=== PATIENT | female | born 1990 | race Caucasian/White ===

== ENCOUNTER 2023-04-15 14:47 | Outpatient (CLI) | payer OTHER, SELFPAY ==
[2023-04-15 17:36] LABS: Absolute Lymphocyte Count 3.12 X10^3/uL (0.83-4.51); Absolute Neutrophil Count 4.4 X10^3/uL (2.0-7.7); Basophil# 0.05 X10^3/uL; Basophil% 0.6 % (0-1); Eosinophil# 0.12 X10^3/uL; Eosinophils% 1.5 % (0-5); Hematocrit 42.3 % (37-47); Hemoglobin 13.7 g/dL (12.0-15.0); Lymphocyte # 3.12 X10^3/ul (0.83-4.51); Lymphocyte % 38.1 % (19-41); Mean Corp Hgb Conc 32.4 g/dL (32-36); Mean Corpuscular Hgb 30.8 pg (27.0-32.0); Mean Corpuscular Volume 95.1 fL (81-99); Mean Platelet Vol. 12.7 fl (6.2-12.0); Monocyte# 0.47 X10^3/uL; Monocyte% 5.7 % (0-10); NRBC Flagged by Analyzer 0 % (0-5); Neutrophil # 4.41 X10^3/uL (2.7-7.7); Neutrophil % 53.9 % (47-70); Platelet Count 205 K/mm3 (150-450); RBC Distribution Width CV 12.8 % (11.6-14.6); RBC Distribution Width SD 44.4 fl (35.1-43.9); Red Blood Count 4.45 M/mm3 (4.2-5.4); White Blood Count 8.2 K/mm3 (4.4-11.0)
[2023-04-15 17:55] LABS: Hemoglobin A1c 5.1 % (3.8-5.6)
[2023-04-15 18:01] LABS: AST(SGOT) 17 U/L (15-37); Alanine Aminotransfer ALT/SGPT 22 U/L (13-56); Albumin, Serum 3.8 g/dL (3.2-5.0); Alkaline Phosphatase 84 U/L (45-117); Anion Gap 5 (5-15); BUN 10 mg/dL (7-18); BUN/Creat Ratio 15.4 RATIO (10-20); Calcium,Total 8.9 mg/dL (8.5-10.1); Chloride 103 mmol/L (98-107); Cholesterol 168 mg/dL (200); Creatinine, Serum 0.65 mg/dL (0.55-1.02); EST Glomerular Filtration Rate 111 mL/min (>60); Est Glom Filt Rate - Afr Amer 134 mL/min (>60); Ferritin 16 ng/mL (8-252); Glucose 91 mg/dL (74-106); High Density Lipoprotein 66 mg/dL; Potassium 3.6 mmol/L (3.5-5.1); Protein, Total 7.8 g/dL (6.4-8.2); Sodium Level 136 mmol/L (136-145); T4 Free Direct 1.18 ng/dL (0.76-1.46); Thyroid Stim Hormone (TSH) 4.37 uIU/mL (0.358-3.74); Triglycerides 112 mg/dL; Very Low Density Lipoprotein 22 mg/dL (5-40)
[2023-04-15 18:52] LABS: Vitamin B12 484 pg/mL (211-911); Vitamin D,25 Hydroxy 32.7 ng/mL
== END 2023-04-15 23:59 | disposition home or self-care (01) ==
PROVIDERS: PCP Family Medicine; Visit Provider Family Medicine
DX: R53.83 Other fatigue (principal); E03.9 Hypothyroidism, unspecified; Z13.220 Encounter for screening for lipoid disorders
CPT/HCPCS: 36415; 80053; 80061; 82306; 82607; 82728; 83036; 83735; 84439; 84443; 85025

== ENCOUNTER → 2023-06-17 | Outpatient (CLI) | payer OTHER, SELFPAY ==
--- OUTSIDE RECORDS SUMMARY | 2023-06-17 09:33 | XMS RPT_ITS | CCD ---
Author Name Unknown Address [address] [place] [address] Organization [facility] Care Team Providers Care Computer Publisher Name Role Phone Wilfred Nolasco Unavailable WILFRED NOLASCO Unavailable UnavailMARIE Palmer Unavailable Unavailable Unavailable Primary Care Provider UnavailWilfred Sherman Primary Care Provider PIERRE, ELICEO JOSH Admitting Unavailab le PIERRE, ELICEO JOSH Referring Unavailab WILFRED Beth Primary Care Unavailabl e PIERRE, ELICEO JOSH Attending Unavailab Ivania Sheppard MD Primary Care Provider [phone] NimishaFred duggan DO Unavailable Ivania Atwood MD Primary Care Provider Fred Bansal DO Unavailable IVANIA ATWOOD Primary Care Unavailable SICKJIMMY, IVANIA Attending Unavailable SICKJIMMY, IVANIA Primary Care Unavailable ANDREIA GAYTAN Attending Unava ilable SICKIVANIA MARQUEZ Primary Care Unavailable SICKER, IVANIA Attending Unavailable SICKJIMMY, IVANIA Primary Care Unavailable SICKJIMMY, IVANIA Attending Unavailable NIMISHAFRED Duggan Attending Unavailab le NIMISHAFRED Duggan Admitting Unavailab IVANIA Sheppard Primary Care Unavailable IVANIA ATWOOD Primary Care Unavailable Sherri Reynoso MD Primary Care Provider SHERRI REYNOSO Attending Unavailable SHERRI REYNOSO Primary Care Unavailable SHERRI REYNOSO Primary Care Unavailable Allergies Allergy Classification Reported Allergen(s) Allergy Type Date of Onset Reaction(s) Facility (20 sources) nickel; Translations: [NICKEL] Drug Allergy 12-09-2018 [facility] Medications Current Medications Medication Drug Class(es) Dates Sig (Normalized) Sig (Original) 0.5 ml bordetella pertussis filamentous hemagglutinin vaccine, inactivated 0.01 mg/ml / bordetella pertussis fimbriae 2/3 vaccine, inactivated 0.01 mg/ml / bordetella pertussis pertactin vaccine, inactivated 0.006 mg/ml / bordetella pertussis toxoid vaccine, inactivated 0.005 mg/ml / diphtheria toxoid vaccine, inactivated 4 unt/ml / tetanus toxoid vaccine, inactivated 10 unt/ml injection (1 source) Inactivated Corynebacterium Diphtheriae Vaccine, Inactivated Clostridium Tetani Vaccine Start: 05-10-2017 End: 05-10-2017 diptheria, tetanus toxoid, acellular pertusssis (ADACEL) 2 Lf-(2.5-5-3-5 mcg)-5Lf/0.5 mL injection Sign this order in conjunction with the immunization order to satisfy [place] Board of Pharmacy Positive ID requirements for immunization orders. 1 mL 0 05/10/2017 05/10/2017 Active amoxicillin 875 mg / clavulanate 125 mg oral tablet (1 source) Penicillin-class Antibacterial Start: 05-10-2017 End: 05-17-2017 take 1 tablet by mouth twice daily amoxicillin-clavula sylvia (AUGMENTIN) 875-125 mg per tablet Take 1 (one) tablet by mouth 2 (two) times a day for 7 days. 14 tablet 0 05/10/2017 05/17/2017 Active b complex vitamins capsule (1 source) take 1 capsule by mouth once daily b complex vitamins capsule Take 1 (one) capsule by mouth daily . 0 Active cholecalciferol 0.125 mg oral tablet (1 source) Vitamin D cholecalciferol (Vitamin D-3) 5,000 Units tablet Take by mouth. 0 Active cholecalciferol, vitamin D3, (VITAMIN D3 ORAL) (1 source) cholecalciferol, vitamin D3, (VITAMIN D3 ORAL) Take by mouth . 0 Active levothyroxine sodium 0.112 mg oral tablet (7 sources) l-Thyroxine Start: 11-30-2022 End: 05-29-2023 take 1 tablet by mouth once daily levothyroxine (Synthroid, Levoxyl) 112 mcg tablet Take 1 tablet (112 mcg) by mouth once daily. 0 11/30/2022 05/29/2023 Active Completed/Discontinued Medications Medication Drug Class(es) Dates Sig (Normalized) Sig (Original) acetaminophen 325 mg oral tablet (4 sources) Start: 04-14-2022 End: 04-15-2022 take 1 tablet by mouth every four hours as needed for pain and headache 650 mg, Oral, Every 4 hours PRN, mild pain, fever 100.4 F or greater, headaches, Starting on Wed04/14/22 at 0744, For mild pain, use PRN ibuprofen first, if currently active and within dose-timing guidelines. If patient is receiving SCHEDULED ketorolac or ibuprofen, acetaminophen may be given PRN for breakthrough mild pain. Acetaminophen may also be used as ordered FOR HEADACHE OR FEVER concurrently with ibuprofen or ketorolac. Problems Active Problems Problem Classification Problem Date Documented Date Episodic/Chronic Anxiety disorders (6 sources) Generalized anxiety disorder; Translations: [Generalized anxiety disorder] Onset: 10-13-2022 10-13-2022 Chronic Conditions associated with dizziness or vertigo (2 sources) Dizziness and giddiness; Translations: [Dizziness and giddiness] Onset: 11-25-2022 Episodic External Injury - Natural / Environment (2 sources) Bitten by dog, initial encounter; Translations: [Bitten by dog, initial encounter] Onset: 05-10-2017 Hypertension complicating ; childbirth and the puerperium (4 sources) Hypertension complicating , childbirth and the puerperium; Translations: [Gestational hypertension] Onset: 12-08-2018 01-31-2019 Chronic Joint disorders and dislocations; trauma-related (11 sources) Defect of articular cartilage; 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] Onset: 01-06-2017 01-06-2017 Chronic Other complications of ; puerperium affecting management of mother (1 source) delivery - delivered; Translations: [Delivery by section using transverse incision of lower segment of uterus] Episodic Other nervous system disorders (7 sources) Chiari malformation type I; Translations: [Compression of brain] Onset: 07-12-2019 07-12-2019 Chronic Other nervous system disorders (1 source) Postoperative pain ; Translations: [Other acute postprocedural pain] Episodic Spondylosis; intervertebral disc disorders; other back problems (4 sources) Cervical radiculopathy; Translations: [Thoracic radiculopathy] Chronic Thyroid disorders (9 sources) Hypothyroidism; Translations: [Hypothyroidism, unspecified] Onset: 02-19-2022 Chronic Unclassified (16 sources) Patient encounter status; Translations: [Encounter for routine gynecological examination] Onset: 07-24-2015 07-24-2015 Past or Other Problems Problem Classification Problem Date Documented Date Episodic/Chronic Hypertension complicating ; childbirth and the puerperium (20 sources) Hypertension AND/OR vomiting complicating childbirth AND/OR puerperium; Translations: [-induced hypertension] Onset: 12-08-2018 12-08-2018 Episodic Infective arthritis and osteomyelitis (except that caused by tuberculosis or sexually transmitted disease) (20 sources) Sesamoiditis; Translations: [Other specified joint disorders, unspecified joint] Onset: 01-06-2017 01-06-2017 Episodic Open wounds of head; neck; and trunk (2 sources) Open bite of nose, initial encounter; Translations: [Open bite of nose, initial encounter] Onset: 05-10-2017 Episodic Other acquired deformities (5 sources) Defect of articular cartilage; Translations: [Other specified acquired deformities of musculoskeletal system] Onset: 01-06-2017 01-06-2017 Episodic Other connective tissue disease (6 sources) Disorder of musculoskeletal system; 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] Onset: 01-06-2017 01-06-2017 Episodic Other injuries and conditions due to external causes (20 sources) Injury of foot; Translations: [Unspecified injury of unspecified foot, initial encounter] Onset: 01-06-2017 01-06-2017 Episodic Other nervous system disorders (2 sources) Other acute postprocedural pain; Translations: [Other acute postprocedural pain] Onset: 04-13-2022 Episodic Spondylosis; intervertebral disc disorders; other back problems (7 sources) Spinal stenosis in cervical region; Translations: [Spinal stenosis, cervical region] Onset: 07-12-2019 07-12-2019 Episodic Unclassified (1 source) Dog bite of nose, initial encounter Results Test Name Value Interpretation Reference Range Facil ity Vital Signs Date Time Vital Sign Value Performing Clinician Facility 02-11-2023 14:010400 Body height 168.9 cm Sherri Reynoso MD Work Phone: [facility] 02-11-2023 14:01-0400 Body mass index (BMI) [Ratio] 28.71 kg/m2 Sherri Reynoso MD Work Phone: [facility] 02-11-2023 14:01-0400 Body temperature 98.6 [degF] Sherri Reynoso MD Work Phone: [facility] 02-11-2023 14:01-0400 Body weight 81.92 kg Sherri Reynoso MD Work Phone: [facility] 02-11-2023 14:01-0400 Diastolic blood pressure 69 mm[Hg] Sherri Reynoso MD Work Phone: [facility] 02-11-2023 14:01-0400 Heart rate 86 /min Sherri Reynoso MD Work Phone: [facility] 02-11-2023 14:01-0400 SaO2% (BldA) [Mass fraction] 94 % Sherri Renyoso MD Work Phone: [facility] 02-11-2023 14:01-0400 Systolic blood pressure 117 mm[Hg] Sherri Reynoso MD Work Phone: [facility] 10-13-2022 11:11-0400 Body height 170.2 cm Andreia Gaytan [employer] WORK[employer]ICE Work Phone: [facility] 10-13-2022 11:11-0400 Body mass index (BMI) [Ratio] 27.53 kg/m2 Andreia Gaytan [employer] WORK[employer]ICE Work Phone: [facility] 10-13-2022 11:11-0400 Body temperature 97.81 [degF] Andreia Gaytan [employer]OUN[employer] WORKER APPRENTICE Work Phone: [facility] 10-13-2022 11:11-0400 Body weight 79.74 kg Andreia Gaytan [employer] WORK[employer]ICE Work Phone: [facility] 10-13-2022 11:11-0400 Diastolic blood pressure 69 mm[Hg] Andreia Gaytan [employer]OUN[employer] WORKER APPRENTICE Work Phone: [facility] 10-13-2022 11:11-0400 Heart rate 79 /min Andreia Gaytan [employer] WORKER [employer]ENTICE Work Phone: [facility] 10-13-2022 11:11-0400 Respiratory rate 16 /min Andreia Gaytan [employer] WORKER [employer]PRENTICE Work Phone: [facility] 10-13-2022 11:11-0400 SaO2% (BldA) [Mass fraction] 95 % Andreia Gaytan [employer] WORKER APPRENTICE Work Phone: [facility] 10-13-2022 11:11-0400 Systolic blood pressure 120 mm[Hg] Andreia Gaytan [employer]OUN[employer] WORKER APPRENTICE Work Phone: [facility] 04-15-2022 15:35-0400 Body temperature 98.1 [degF] Fred Nimisha DO Work Phone: [facility] 04-15-2022 15:35-0400 Diastolic blood pressure 61 mm[Hg] Fred Nimisha DO Work Phone: [facility] 04-15-2022 15:35-0400 Heart rate 78 /min Fred Nimisha DO Work Phone: [facility] 04-15-2022 15:35-0400 Respiratory rate 16 /min Fred Nimisha DO Work Phone: [facility] 04-15-2022 15:35-0400 SaO2% (BldA) [Mass fraction] 96 % Fred Nimisha DO Work Phone: [facility] 04-15-2022 15:35-0400 Systolic blood pressure 102 mm[Hg] Fred Nimisha DO Work Phone: [facility] 04-13-2022 12:00-0400 Body height 170.2 cm Fred Nimisha DO Work Phone: [facility] 04-13-2022 12:00-0400 Body mass index (BMI) [Ratio] 31.32 kg/m2 Fred Nimisha DO Work Phone: [facility] 04-13-2022 12:00-0400 Body weight 90.72 kg Fred Nimisha DO Work Phone: [facility] 02-19-2022 13:43-0400 Body height 170.2 cm Iavnia Atwood MD Work Phone: [facility] 02-19-2022 13:43-0400 Body mass index (BMI) [Ratio] 31.01 kg/m2 Ivania Atwood MD Work Phone: [facility] 02-19-2022 13:43-0400 Body temperature 98.6 [degF] Ivania Atwood MD Work Phone: [facility] 02-19-2022 13:43-0400 Body weight 89.81 kg Ivania Atwood MD Work Phone: [facility] 02-19-2022 13:43-0400 Diastolic blood pressure 71 mm[Hg] Ivania Atwood MD Work Phone: [facility] 02-19-2022 13:43-0400 Heart rate 87 /min Ivania Atwood MD Work Phone: [facility] 02-19-2022 13:43-0400 SaO2% (BldA) [Mass fraction] 96 % Ivania Atwood MD Work Phone: [facility] 02-19-2022 13:43-0400 Systolic blood pressure 117 mm[Hg] Ivania Atwood MD Work Phone: [facility] 06-12-2019 17:06-0500 BMI (Body Mass Index) 28.19 kg/m2 [facility] 06-12-2019 17:06-0500 Body weight 81.65 kg [facility] 06-12-2019 17:06-0500 Height 170.2 cm [facility] 02-03-2019 08:32-0400 Body Temperature 98.4 [degF] Fred Nimisha [facility] 02-03-2019 08:32-0400 BP Diastolic 77 mm[Hg] Fred [facility] 02-03-2019 08:32-0400 BP Systolic 138 mm[Hg] Fred [facility] 02-03-2019 08:32-0400 Pulse (Heart Rate) 78 /min [facility] 02-03-2019 08:32-0400 Pulse Oximetry 97 % [facility] 02-03-2019 08:32-0400 Respiratory Rate 14 /min [facility] 01-31-2019 11:05-0400 BMI (Body Mass Index) 33.2 kg/m2 [facility] 01-31-2019 11:05-0400 Body weight 96.16 kg [facility] 01-31-2019 11:05-0400 Height 170.2 cm [facility] 01-18-2019 22:44-0400 Body Temperature 98.01 [degF] [facility] 01-18-2019 22:44-0400 BP Diastolic 80 mm[Hg] [facility] 01-18-2019 22:44-0400 BP Systolic 130 mm[Hg] [facility] 01-18-2019 22:44-0400 Pulse (Heart Rate) 110 /min [facility] 12-10-2018 12:44-0400 Body Temperature 98.01 [degF] [facility] 12-10-2018 12:44-0400 BP Diastolic 54 mm[Hg] [facility] 12-10-2018 12:44-0400 BP Systolic 124 mm[Hg] [facility] 12-10-2018 12:44-0400 Pulse (Heart Rate) 80 /min [facility] 12-10-2018 12:44-0400 Pulse Oximetry 98 % [facility] 12-10-2018 12:44-0400 Respiratory Rate 16 /min [facility] 12-08-2018 23:00-0400 BMI (Body Mass Index) 32.26 kg/m2 [facility] 12-08-2018 23:00-0400 Body weight 93.44 kg [facility] 12-08-2018 23:00-0400 Height 170.2 cm [facility] 06-16-2017 15:23-0500 BMI (Body Mass Index) 30.38 kg/m2 Wilfred Nolasco [facility] Work Phone: 06-16-2017 15:23-0500 Body Temperature 98.29 [degF] Wilfred Nolasco [facility] Work Phone: 06-16-2017 15:23-0500 BP Diastolic 60 mm[Hg] Wilfred Nolasco [facility] Work Phone: 06-16-2017 15:23-0500 BP Systolic 123 mm[Hg] Wilfred Nolasco [facility] Work Phone: 06-16-2017 15:23-0500 Height 170.2 cm Wilfred Nolasco [facility] Work Phone: 06-16-2017 15:23-0500 Pulse (Heart Rate) 83 /min Wilfred Nolasco [facility] Work Phone: 06-16-2017 15:23-0500 Pulse Oximetry 98 % Wilfred Nolasco [facility] Work Phone: 06-16-2017 15:23-0500 Respiratory Rate 16 /min Wilfred Nolasco [facility] Work Phone: 06-16-2017 15:23-0500 Weight 88 kg Wilfred Nolasco [facility] Work Phone: 05-10-2017 18:07-0500 BMI (Body Mass Index) 30.07 kg/m2 Marie Lehman [facility] Work Phone: 05-10-2017 18:07-0500 Body Temperature 98.8 [degF] Marie Lehman [facility] Work Phone: 05-10-2017 18:07-0500 BP Diastolic 80 mm[Hg] [facility] Work Phone: 05-10-2017 18:07-0500 BP Systolic 128 mm[Hg] Marie Lehman [facility] Work Phone: 05-10-2017 18:07-0500 Height 170.2 cm [facility] Work Phone: 05-10-2017 18:07-0500 Pulse (Heart Rate) 77 /min Marie Lehman [facility] Work Phone: 05-10-2017 18:07-0500 Pulse Oximetry 98 % Marie Lehman [facility] Work Phone: 05-10-2017 18:07-0500 Respiratory Rate 15 /min Marie Lehman [facility] Work Phone: 05-10-2017 18:07-0500 Weight 87.09 kg Marie Lehman [facility] Work Phone: 03-03-2017 08:35-0400 BMI (Body Mass Index) 28.82 kg/m2 [facility] Work Phone: 03-03-2017 08:35-0400 Height 170.2 cm [facility] Work Phone: 03-03-2017 08:35-0400 Respiratory Rate 16 /min [facility] Work Phone: 03-03-2017 08:35-0400 Weight 83.46 kg [facility] Work Phone: 02-17-2017 14:51-0400 BMI (Body Mass Index) 28.82 kg/m2 [facility] Work Phone: 02-17-2017 14:51-0400 Height 170.2 cm Jovi [facility] Work Phone: 02-17-2017 14:51-0400 Respiratory Rate 16 /min [facility] Work Phone: 02-17-2017 14:51-0400 Weight 83.46 kg [facility] Work Phone: 02-01-2017 13:48-0400 BMI (Body Mass Index) 28.82 kg/m2 [facility] Work Phone: 02-01-2017 13:48-0400 Height 170.2 cm [facility] Work Phone: 02-01-2017 [id number] Respiratory Rate 14 /min Jovi Cruz [facility] Work Phone: 02-01-2017 13:48-0400 Weight 83.46 kg Jovi Cruz [facility] Work Phone: Encounters Encounter Date Encounter Type Care Provider Facility Start: 02-11-2023 End: 02-12-2023 ambulatory SHERRI REYNOSO [facility] Ambulatory Start: 02-11-2023 End: 02-11-2023 Office outpatient new 30 minutes Sherri Reynoso MD Work Phone: [facility] Procedures Date Procedure Procedure Detail Performing Clinician Start: 02-11-2023 Thyrotropin [Units/v olume] in Serum or Plasma SHERRI REYNOSO Start: 02-11-2023 THYROXINE, FREE SHERRI MCKEON Start: 02-11-2023 TRIIODOTHYRONINE, FREE SHERRI REYNOSO Start: 11-25-2022 Thyrotropin [Units/v olume] in Serum or Plasma Sherri Reynoso MD Work Phone: Start: 10-13-2022 Adult depression scr eening assessment Andreia Lucila GEORGE Work Phone: Start: 04-14-2022 Blood count complete automated Charleen Davidson MD Work Phone: Start: 04-13-2022 End: 04-13-2022 section Fred Moser Plant [employer] DO Work Phone: Start: 04-13-2022 Blood count complete automated Fred Moser Nimisha DO Work Phone: Start: 04-13-2022 Blood typing serologic abo Fred Shanti Nimisha DO Work Phone: Start: 02-19-2022 Adult depression scr eening assessment Ivania Atwood MD Work Phone: Start: 02-01-2019 Complete blood count (hemogram) panel - Blood by Automated count Lila Colorado Work Phone: Start: 12-10-2018 Complete blood count (hemogram) panel - Blood by Automated count Yesenia Mora Work Phone: Start: 12-10-2018 Comprehensive metabo lic 2000 panel - Serum or Plasma Yesenia Mora Work Phone: Start: 12-10-2018 Lactate dehydrogenas e [Enzymatic activity/volume] in Serum or Plasma by Lactate to pyruvate reaction Yesenia Mora Work Phone: Start: 12-10-2018 Urate [Mass/volume] in Serum or Plasma Yesenia Mora Work Phone: Start: 12-10-2018 US scan of upper abdomen Shellie Elsie Roper Work Phone: Start: 12-09-2018 Mra head w/o contrst material Shawn Keita Work Phone: Start: 12-09-2018 MRI of brain and brain stem Shawn Keita Work Phone: Start: 12-09-2018 Protein [Mass/volume ] in 24 hour Urine Yesenia Mora Work Phone: Start: 12-09-2018 Complete blood count (hemogram) panel - Blood by Automated count Palma Perez Work Phone: Start: 12-09-2018 Comprehensive metabo lic 2000 panel - Serum or Plasma Palma Perez Work Phone: Start: 12-09-2018 Lactate dehydrogenas e [Enzymatic activity/volume] in Serum or Plasma by Lactate to pyruvate reaction Palma Perez Work Phone: Start: 12-09-2018 Urate [Mass/volume] in Serum or Plasma Palma Perez Work Phone: Start: 12-09-2018 Comprehensive metabo lic 2000 panel - Serum or Plasma Perla Chi Work Phone: Start: 12-09-2018 Lactate dehydrogenas e [Enzymatic activity/volume] in Serum or Plasma by Lactate to pyruvate reaction Perla Chi Work Phone: Start: 12-09-2018 Urate [Mass/volume] in Serum or Plasma Perla Mireles Work Phone: Start: 12-09-2018 Complete blood count (hemogram) panel - Blood by Automated count Perla Mireles Work Phone: Start: 12-08-2018 CT of head without contrast Yesenia Mora Work Phone: Start: 12-08-2018 Blood group typing Farida joselinee Shanti Bansal Work Phone: Start: 12-08-2018 Streptococcus agalac tiae DNA [Presence] in Unspecified specimen by ABBY with probe detection Yesenia Mora Work Phone: Start: 12-08-2018 Protein/Creatinine [ Ratio] in Urine Yesenia Mora Work Phone: Start: 12-08-2018 Blood type and Indir ect antibody screen panel - Blood Yesenia Mora Work Phone: Start: 12-08-2018 Complete blood count (hemogram) panel - Blood by Automated count Yesenia Mora Work Phone: Start: 12-08-2018 Comprehensive metabo lic 2000 panel - Serum or Plasma Yesenia Mora Work Phone: Start: 12-08-2018 Lactate dehydrogenas e [Enzymatic activity/volume] in Serum or Plasma by Lactate to pyruvate reaction Yesenia Mora Work Phone: Start: 12-08-2018 Treponema pallidum I gG Ab [Presence] in Serum Yesenia Mora Work Phone: Start: 12-08-2018 Urate [Mass/volume] in Serum or Plasma Yesenia Mora Work Phone: Start: 07-24-2015 Microscopic observat ion [Identifier] in Cervix by Cyto stain Jovi Cruz Plan of Treatment Date Care Activity Detail Author Start: 2039 Zoster Vaccines (1 of 2) Zoster Vaccines (1 of 2) [facility] Start: 05-10-2027 DTaP/Tdap/Td Vaccines (2 - Td or Tdap) DTaP/Tdap/Td Vaccines (2 - Td or Tdap) [facility] Start: 05-10-2027 Tetanus vaccination [facility] Start: 11-26-2023 Thyroid stimulating hormone measurement TSH Level [facility] Start: 10-14-2023 Depression screening using PHQ-9 (Patient Health Questionnaire 9) score Depression Screening (PHQ-2/9) [facility] Start: 02-19-2023 Depression screening using PHQ-9 (Patient Health Questionnaire 9) score Depression Screening (PHQ-2/9) [facility] Start: 02-19-2023 History and physical examination, annual for health maintenance Wellness Visit [facility] Start: 02-12-2023 Influenza vaccination Influenza Vaccine (#1) [facility] Start: 02-11-2023 End: 02-12-2024 Thyrotropin [Units/volume] in Serum or Plasma [facility] Service Area Work Phone: Immunizations Immunization Date Immunization Notes Care Provider Fa cili 04-15-2022 influenza, injectabl e, quadrivalent, preservative free Fred Nimisha DO Work Phone: [facility] 04-15-2022 influenza virus vaccine, unspecified formulation Sherri Reynoso MD Work Phone: [facility] Work Phone: 04-13-2022 diphtheria, tetanus toxoids and acellular pertussis vaccine, unspecified formulation Fred Nimisha DO Work Phone: [facility] 04-13-2022 measles, mumps and rubella virus vaccine Fred Nimisha DO Work Phone: [facility] 04-13-2022 varicella zoster immune globulin Fred Nimisha DO Work Phone: [facility] 06-01-2021 Moderna SARS-CoV-2 Vaccination Sherri Reynoso MD Work Phone: [facility] Work Phone: 10-09-2020 Moderna SARS-CoV-2 Vaccination Sherri Reynoso MD Work Phone: [facility] Work Phone: 09-10-2020 Moderna SARS-CoV-2 Vaccination Sherri Reynoso MD Work Phone: [facility] Work Phone: 01-31-2019 diphtheria, tetanus toxoids and acellular pertussis vaccine, unspecified formulation [facility] 01-31-2019 measles, mumps and rubella virus vaccine [facility] 01-31-2019 varicella zoster immune globulin [facility] 05-10-2017 tetanus toxoid, reduced diphtheria toxoid, and acellular pertussis vaccine, adsorbed; Translations: [TDAP] Marie Lehman [facility] Payers Date Payer Category Payer Unknown [id number] 2023 Unknown [id number] 2019 Private Health Insurance CARIDAD LUGO OPEN ACCESS MANAGED CHOICE xxxxxxxxxx 2019-Present xxxxxxxxxx [id number] 2019 Private Health Insurance [id number] 2018 Unknown [facility] HMO/JUDE/ JUDE PLUS/CHOICE PLUS xxxxxxxxx 2018-Present xxxxxxxxx [id number] 2018 Unknown [id number] 2015 Unknown [id number] 1989 Unknown [id number]. 902 1989 Unknown [id number]. 903 1989 Unknown [id number]. 903 1989 Unknown [id number]. 903 1989 Unknown [id number]. 903 1989 Unknown [id number]. 900 1989 Unknown [id number]. 900 1989 Unknown [id number] [id number]. 900 1989 Unknown [id number]. 1244 1989 Unknown [id number] 1245 Private Health Insurance [id number] Social History Date Type Detail Facility Start: 03-03-2017 End: 02-11-2023 Tobacco smoking status [facility] Never smoker [facility] Work Phone: Start: 1990 Sex Assigned At Not on file [facility] Work Phone: Start: 12-01-2016 Alcohol Comment occ [facility] Start: 05-18-2018 [facility] Start: 01-31-2019 End: 10-13-2022 Alcohol intake Current drinker of alcohol (finding) [facility] Start: 02-19-2022 End: 02-11-2023 Tobacco use and exposure Smokeless tobacco non-user [facility] Start: 02-12-2022 History SDOH Alcohol Frequency 1 [facility] Start: 02-12-2022 History SDOH Alcohol Std Drinks 0 [facility] Start: 02-12-2022 History SDOH Social Connections Phone 4 [facility] Start: 02-12-2022 History SDOH Social Connections Get Together 2 [facility] Start: 02-12-2022 History SDOH Social Connections Mu-Ism 98 [facility] Start: 02-12-2022 History SDOH Social Connections Living 3 [facility] Start: 02-09-2022 End: 10-12-2022 Exposure to SARS-CoV-2 (event) Not sure [facility] Start: 02-12-2022 End: 02-11-2023 History of Social function [facility] Start: 02-12-2022 End: 02-11-2023 Humiliation, Afraid, Rape, and Kick questionnaire [HARK] [facility] Within the last year , have you been afraid of your partner or ex-partner? No [facility] How often do you att end lutheran or christianity services? Patient refused [facility] Are you now , , , , never or living with a partner? [facility] How often to you hav e a drink containing alcohol? Never [facility] How hard is it for y ou to pay for the very basics like food, housing, medical care, and heating Not very hard [facility] Do you feel stress - tense, restless, nervous, or anxious, or unable to sleep at night because your mind is troubled all the time - these days [OSQ] Only a little [facility] (I/We) worried wheth er (my/our) food would run out before (I/we) got money to buy more. Never true [facility] Start: 12-05-2018 Gender identity Identifies as female gender (finding) [facility] Start: 12-05-2018 Sexual orientation Heterosexual (finding) [facility] Start: 02-11-2023 Alcohol intake Ex-drinker (finding) [facility] Work Phone: Medical Equipment Procedure Code Equipment Code Equipment Origin al Text Equipment Identifier Dates Hemostat 3g Powd er Absorbable Surgicel - [id number], [id number] Start: 04-13-2022 Clinical Notes 02-19-2022 to 02-11-2023 Sherri Reynoso MD - 02/11/2023 2:00 PM Homer Gaytan, FOUNDRY WORKER APPRENTICE - 10/13/2022 11:21 AM Nadya Atwood MD - 08/04/2022 8:05 AM Felix Andrade LPN - 07/29/2022 2:58 PM EST Note Date & Type Note Facility 02-11-2023 History of Presen t illness Narrative Subjective Patient ID: Veronica Sams is a 32 y.o. female who presents for Labs Only (Needs thyroid checked regularly ()) and New Patient Visit. HPI Here for labwork order . Has limited time to get things done, this is the last day of her coverage. Moved to [place] recently . , 2 kids , . Feeling edgy, hairloss. Temp intolerance. Wt changes . , not having cycles.has an IUD . Thyroid dose - current dose every since November ,was an increase from previous . Anxiety , for approx a year . Still on same dose for 9 months . Sertraline 25 mg. Does not think it does anything whether takes or not. 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 Travels for her work. Review of Systems Objective BP 117/69 (BP Location: Right arm, Patient Position: Sitting, BP Cuff Size: Adult) Pulse 86 Temp 37 C (98.6 F) (Temporal) Ht 1.689 m (5' 6.5 ) Wt 81.9 kg (180 lb 9.6 oz) SpO2 94% Yes BMI 28.71 kg/m Physical Exam Vitals reviewed. HENT: Head: Normocephalic and atraumatic. Cardiovascular: Heart sounds: Normal heart sounds. Pulmonary: Breath sounds: Normal breath sounds. Musculoskeletal: Cervical back: No rigidity or tenderness. Lymphadenopathy: Cervical: No cervical adenopathy. Affect: anxious Assessment/Plan Problem List Items Addressed This Visit None Visit Diagnoses Hypothyroidism, unspecified type - Primary Relevant Orders Thyroid Stimulating Hormone Thyroxine, Free Triiodothyronine, Free Anxiety Thyroid labs ordered . Levothyroxine , Took in the morning, today , 112 mcg. On this dose for last 90 d Will adjust dose if needed. For anxiety -recommend increase dose to 50 mg a day. Declines rx, states she has a lot of the 25 mg, and will take 2 at once. Nessa Reynoso MD documented in this encounter [facility] Work Phone: 10-13-2022 History of Presen t illness Narrative Patient ID: Veronica Sams is a 32 y.o. female who presents for Follow-up (Thyroid medication) and Gap Closure (Health Maintenance) (HIV Screening Never done/Hepatitis C Screening Never done/Pap Smear due on 07/24/2018/COVID-19 Vaccine(4 - Booster for Moderna series) due on 07/27/2021 ) Subjective HPI Thyroid follow-up Patient is approximately 6 months post- and had follow-up with OBGYN with lab work in the past 2 months; our office received results of lab work and they are scanned into her file Lab work with finding of TSH level of 0.01 and Free T4 1.94 OBGYN adjusted Levothyroxine from 100 mcg daily to 88 mcg daily Patient was instructed to follow-up with PCP for repeat lab work and evaluation. Has been on new dose of medication for over 6 weeks; states since dose adjustment feel run down, increased anxiety (was previously on Zoloft after deliver; stopped taking 1 month ago); Is currently on vitamin D supplement due to low levels Denies CP, SOB, unintentional weight loss, heat/cold intolerance, diarrhea/constipation, dry skin. Review of Systems Constitutional: Negative for fatigue, fever and unexpected weight change. Eyes: Negative for visual disturbance. Respiratory: Negative for apnea, cough, choking, chest tightness, shortness of breath, wheezing and stridor. Cardiovascular: Negative for chest pain, palpitations and leg swelling. Endocrine: Negative for cold intolerance and heat intolerance. Neurological: Negative for dizziness, syncope, facial asymmetry, speech difficulty, light-headedness, numbness and headaches. Psychiatric/Behavioral: Positive for dysphoric mood. Negative for self-injury and suicidal ideas. The patient is nervous/anxious. Past Medical History: Diagnosis Date Arthritis Chiari I malformation (HCC) Disease of thyroid gland Gestational hypertension, third trimester 12/08/2018 Past Surgical History: Procedure Laterality Date ANKLE FRACTURE SURGERY Left 2 surgerys SECTION Bilateral 01/31/2019 Procedure: SECTION; Surgeon: Fred Bnasal DO; [facility]; Service: OBGYN SECTION N/A 04/13/2022 Procedure: SECTION; Surgeon: Fred Bansal DO; [facility]; Service: OBGYN SECTION, LOW TRANSVERSE WISDOM TOOTH EXTRACTION Patient's Medications New Prescriptions No medications on file Previous Medications ASPIRIN 81 MG EC TABLET Take 1 (one) tablet (81 mg total) by mouth daily . B COMPLEX VITAMINS CAPSULE Take 1 (one) capsule by mouth daily . CHOLECALCIFEROL, VITAMIN D3, (VITAMIN D3 ORAL) Take by mouth . LEVOTHYROXINE (SYNTHROID, LEVOTHROID) 100 MCG TABLET Take 1 (one) tablet (100 mcg total) by mouth daily . VITAMIN WITH CA-IRON-FA 27-1 MG TAB Take 1 (one) tablet by mouth daily . UNABLE TO FIND Med Name: Wally . Modified Medications No medications on file Discontinued Medications No medications on file Allergies: Nickel Family History Problem Relation Age of Onset Hypertension Mother Diabetes Father Cancer Maternal Grandmother Breast cancer Maternal Grandmother Cancer Paternal Grandmother Colon cancer Paternal Grandfather Colon cancer Cousin Ovarian cancer Neg Hx Uterine cancer Neg Hx Social History Social History Narrative Not on file The following portions of the patient's history were reviewed and updated as appropriate: allergies, current medications, past family history, past medical history, past social history, past surgical history and problem list. Imported documents from outside organizations were reviewed if applicable. Objective Vitals: 10/13/22 1111 BP: 120/69 Pulse: 79 Resp: 16 Temp: 97.8 F (36.6 C) TempSrc: Temporal SpO2: 95% Weight: 79.7 kg (175 lb 12.8 oz) Height: 5' 7 Wt Readings from Last 3 Encounters: 10/13/22 79.7 kg (175 lb 12.8 oz) 04/13/22 90.7 kg (200 lb) 02/19/22 89.8 kg (198 lb) Lab Results Component Value Date TSH 7.53 (H) 10/13/2022 FREET4 1.3 10/13/2022 Physical Exam Vitals and nursing note reviewed. Constitutional: Appearance: Normal appearance. She is normal weight. She is not ill-appearing. HENT: Head: Normocephalic and atraumatic. Right Ear: External ear normal. Left Ear: External ear normal. Eyes: Conjunctiva/sclera: Conjunctivae normal. Neck: Thyroid: No thyroid mass, thyromegaly or thyroid tenderness. Trachea: Trachea and phonation normal. Cardiovascular: Rate and Rhythm: Normal rate and regular rhythm. No extrasystoles are present. Pulses: Normal pulses. Heart sounds: Normal heart sounds, S1 normal and S2 normal. No murmur heard. Pulmonary: Effort: Pulmonary effort is normal. Breath sounds: Normal breath sounds and air entry. No decreased air movement. Musculoskeletal: Cervical back: Full passive range of motion without pain and normal range of motion. Right lower leg: No edema. Left lower leg: No edema. Lymphadenopathy: Cervical: No cervical adenopathy. Skin: General: Skin is warm. Capillary Refill: Capillary refill takes less than 2 seconds. Neurological: Mental Status: She is alert and oriented to person, place, and time. Psychiatric: Attention and Perception: Attention normal. Mood and Affect: Mood and affect normal. Mood is not anxious or depressed. Speech: Speech normal. Behavior: Behavior normal. Thought Content: Thought content normal. Cognition and Memory: Cognition normal. Judgment: Judgment normal. Current Outpatient Medications Medication Instructions aspirin 81 mg, Oral, Daily b complex vitamins capsule 1 capsule, Oral, Daily cholecalciferol, vitamin D3, (VITAMIN D3 ORAL) Oral levothyroxine (SYNTHROID, LEVOTHROID) 100 mcg, Oral, Daily vitamin with Ca-Iron-FA 27-1 mg Tab 1 tablet, Oral, Daily UNABLE TO FIND Med Name: Tumeric No orders of the defined types were placed in this encounter. Assessment/Plan: Problem List Items Addressed This Visit None Visit Diagnoses Hypothyroidism, unspecified type - Primary TSH level not at goal on re-check lab work with lowered dose of 88 mcg levothyroxine. Patient symptomatic with elevated TSH level. Patient will re-start previous 100 mcg dose and follow-up for lab work in 6 weeks. Patient agreeable with POC, all questions answered. Relevant Orders TSH with Reflex Free T4 (Completed) Generalized anxiety disorder States she was previously on Zoloft post- and stopped medication approximately 1 month ago. States she felt medication was not doing much for her so stopped; now that she has been off of medication, feels anxiety more unmanageable. Is currently and would like to re-trial medication with follow-up in 4-6 weeks. Patient agreeable with POC, all questions answered. Relevant Medications sertraline (ZOLOFT) 25 MG tablet For any new or changed medications prescribed today, patient was educated regarding use and potential side effects. Discussed alarm symptoms that warrant call or return to office. Patient to call or return to office with any persistent, new or worsening symptoms. Patient agreeable with plan of care. Andreia Gaytan CNP [facility] documented in this encounter [facility] 08-04-2022 History of Presen t illness Narrative Records from [facility] reviewed, placed in scan folder. Pertinent info: TSH 0.01 with elevated T4. Chart updated with pertinent info. Received lab results, placed in review folder. documented in this encounter [facility] 04-15-2022 Note Formatting of this n ote might be different from the original. Patient provided AVS and proper education, all questions answered. secured in car seat per parents. ID bands and security tag verified prior to discharge. Patient discharged from unit with infant in car seat on her lap, via wheelchair, accompanied by PSA. [facility] 04-15-2022 Miscellaneous Notes Patient provided AVS and proper education, all questions answered. Infant secured in car seat per parents. ID bands and security tag verified prior to discharge. Patient discharged from unit with infant in car seat on her lap, via wheelchair, accompanied by PSA. This note was copied from a baby's chart. LC arrived to room to assess needs prior to discharge. Mom states is going much better and she states baby is ready to breastfeed at this time. Mom requests hands on help with . Mom states she initiated pumping and has pumped a few times but states baby has been doing better at . Assisted with positioning and attachment techniques on right in cross cradle position. Baby latched easily, deep areolar latch, and nursed actively, milk transfer observed, see baby's flowsheet for full assessment. Did not stay for entire feeding. Mom declines further assistance. Encouraged Mom to do waking techniques and breast compressions to help keep baby active at breast. Did not stay entire feeding. Mom declines further assistance and states she is comfortable with plan outlined in consult from yesterday. Discussed indications for pumping and supplementing with ebm/abm. Reviewed with mom the plan of: -Low guzmán attempts at the breast when baby cues. -If baby does not latch with active sucking and swallowing ending in satiety, or if baby is offered a supplement, Mom is to pump/hand express and feed EBM with formula as needed, at least 8-12x/24hrs. -Discussed tummy size and appropriate volume for feeds based on baby's age. -Encouraged skin to skin time -Keep a diaper diary -Reviewed the Temporary Breastpumping handout. -Encouraged pump rental at discharge -Reminded mom to remove all disposable pump parts from pump to use at home -[facility]our[facility] or PRN, and to follow up with baby's primary care provider within 2-3 days, or sooner if needed -Mother has card with helpline number and list of outpatient resources. This note was copied from a baby's chart. Arrived back to room. Veronica was attempting to latch baby on left side, states she started latching better to right side recently. Assisted with positioning and attachment techniques. Baby latched but somewhat shallow so had her re-attempt deeper latch. Baby continued to latch shallow so suggested attempting a different position. Attempted positioning and attachment techniques in football and baby latched easily for a deep, areolar latch and breast fed actively with milk transfer and then fell asleep after about 10 mins. Assisted with positioning and attachment techniques on right side and baby latched easily. She was initially sleepy and passive but became more active with breast compression and stimulation, milk transfer noted. Discussed the importance of keeping baby active at the breast and ensure adequate milk transfer and if baby doesn't latch to right side then pump this side. Gave mom the plan of: -Low guzmán attempts at the breast when baby cues. -If baby does not latch with active sucking and swallowing ending in infant satiety, or if baby is offered a supplement, Mom is to pump/hand express and feed EBM with formula as needed, at least 8-12x/24hrs. -Discussed tummy size and appropriate volume for feeds based on baby's age. -Encouraged skin to skin time -Keep a diaper diary -Reviewed the Temporary Breastpumping handout. Will follow up tomorrow before discharge. This note was copied from a baby's chart. Stopped into room to offer assistance. Veronica had baby latched to left side, states baby is latching well to this side but not as well to right side. Observed latch, appeared moderately deep but baby appeared passive and sleepy. Veronica states baby had been feeding about 20 mins on this side so she detached baby since she was sleepy and attempted right side. Baby opened but not very widely so encouraged Veronica to wait for wide open gape, however, she quickly became sleepy and disinterested. Gave Veronica some tips of obtaining a good latch on right side and encouraged her to pump this side if baby continues to not latch well on right side. Will follow up to assist with tomorrow or sooner if possible. Denies further questions at this time. LC rounded on mom. Mom states that she is and requests a consult. Mom states she pumped 4ml EBM with her home pump. Encouraged use of hospital grade pump but she states she was able to express more with her home pump with previous child. Gave mom the plan of: -Low guzmán attempts at the breast when baby cues, 8-12x/24hrs. -If baby is not cuing by 3 hours since the start of the previous feeding, recommended waking baby and attempting at that time. -If baby does not latch with active sucking and swallowing Mom is to pump/hand express and feed EBM. -Encouraged skin to skin time -Keep a diaper diary Let mom know that we will try to see her 04/14 and we will contact her closer to that time to schedule an appointment. Courtesy card given with list of outpatient resources and helpline number. Section Delivery Note Diagnosis: Principal Problem: Gestational hypertension, third trimester Mother's Information Delivery Blood Loss 04/13/22 1359 - 04/13/22 1451 Quantitative Blood Loss - Delivery (mL) Hospital Encounter 610 mL Total 610 mL Aimee Sams [[id number]] Delivery Anesthesia Method: Spinal Operative Delivery Forceps attempted?: No Vacuum extractor attempted?: No [place] Presentation No data filed Information date/time: 04/13/221413 Gender: Female Delivery type: , Low Transverse Delivery location: OB Unit Provider Present: Routine Initial disposition: Routine NB Care Details: Trial of labor?: No categorization: Repeat priority: Scheduled Indications for : Prior , Low Transverse Skin incision type: Pfannenstiel Delivery Providers Delivering clinician: Fred Bansal DO Other personnel: Provider Role Covering Attending Resident Machine Operator Cane Cutter Delivery Nurse Registered Nurse Delivery Assist Nurse Practitioner Cord Vessels: 3 vessels Complications: None Delayed cord clamping?: Yes Cord clamped date/time: 04/13/20221414 Cord blood obtained?: No Cord segment obtained?: Yes Gases sent?: Yes Stem cell collection (by Provider)?: No Placenta Date/time: 04/13/2022 141 Removal: Manual removal Appearance: Intact Disposition: Refrigerator [place] Apgars Living status: Living Scoring Guzmán: 0 1 2 Skin color Blue or pale Acrocyanotic Completely pink Heart rate Absent <100 bpm >100 bpm Reflex irritability No response Grimace Cry or active withdrawal Muscle tone Limp Some flexion Active motion Respiratory effort Absent Weak cry; hypoventilation Good, crying Skin color: Heart rate: Reflex irritability: Muscle tone: Respiratory effort: Total: 1 Minute: 5 Minute: 10 Minute: 15 Minute: 20 Minute: [place] Measurements Weight: Lacerations No data filed Other Procedures Procedures: None Brief Post Operative Note Patient Name: Veronica Sams : 1990 (32 y.o.) Date of Service: 04/13/2022 CSN: [id number] Procedure(s): SECTION Pre-Operative Diagnoses: * repeat = HTN 05/03, , 37+1 Post-Operative Diagnoses: SAME Surgeon(s) and Role: * Fred Bansal, - Primary * Charleen Davidson MD - Resident - Assisting Anesthesiologist: Nessa Schmitt MD HEEL ATTACHER WOOD: Romi Contreras CRNA Corporate Tax Manager: Sherry Duggan Do, RN Corporate Tax Manager Orientee: Palma Salazar RN Scrub Person Orientee: [facility] [place] Flamer After Lasting: DEMETRA Olmos Nursery Nurse: Rebecca Brady RN Assist: Bridget Gordon CNP Operative findings: viable female , APGARS per NICU, in cephalic presentation. Clear amniotic fluid, intact placenta, and 3 VC. Normal bilateral ovaries, tubes, and uterus. Moderate adhesive disease. Intra and immediate post-operative complications: None Type of anesthesia used: Spinal Quantitative blood loss: 610 mL from 04/13/2022 1:55 PM to 04/13/2022 2:49 PM Estimated urine output: 50 mL Specimen(s): * No specimens in log * Implant(s): Implant Name Type Inv. Item Serial No. Pattern Puncher Lot No. LRB No. Used Action HEMOSTAT 3G POWDER ABSORBABLE SURGICEL - [id number] HEMOSTAT 3G POWDER ABSORBABLE SURGICEL [id number] ETHICON SKBCPB N/A 1 Implanted Drain(s): Urethral Catheter 16 Fr. (Active) Wound(s): Wound 04/13/22 Surgical Wound Abdomen (Active) Charleen Davidson MD 04/13/2022 2:49 PM VERONICA SAMS [facility] [id number] 1990 DATE 04/13/2022 OPERATIVE REPORT SURGEON FRED BANSAL DO NUMERICAL CONTROL NESTING OPERATOR Charleen Davidson MD PREOPERATIVE DIAGNOSES 1. Gestational hypertension. 2. Repeat section. 3. Intrauterine at 37 weeks and 1 day. POSTOPERATIVE DIAGNOSES 1. Gestational hypertension. 2. Repeat section. 3. Intrauterine at 37 weeks and 1 day. PROCEDURE Repeat low transverse section via Pfannenstiel incision. ANESTHESIA Spinal. COMPLICATIONS None. ESTIMATED BLOOD LOSS 610 mL. FLUIDS 2000 mL lactated Ringer's. URINE OUTPUT 50 mL of clear urine. DRAINS Donis catheter. INDICATIONS This is a 32-year-old G3, P1-0-1-1, at 37 weeks and 1 day gestation with a history of gestational hypertension and 1 prior . She presented to Labor and delivery for a scheduled section. FINDINGS Viable female infant, Apgars per NICU, cephalic presentation, clear amniotic fluid, 3-vessel cord, and intact placenta. Normal-appearing uterus, bilateral tubes and ovaries. [id number] adhesive disease. DESCRIPTION OF PROCEDURE This patient was taken to the operating room where spinal anesthesia was found to be adequate. She was then prepped and draped in the normal sterile fashion in the dorsal supine position with a leftward tilt. A Pfannenstiel skin incision was made with a scalpel using the patient's prior Pfannenstiel scar. The incision was carried through the underlying layer of the fascia. The fascia was incised in midline. The fascial incision was extended laterally with Finley scissors. The rectus muscles were dissected off the fascia cranially and caudally using sharp and cautery dissection. The peritoneum was entered sharply in the midline and extended superiorly and inferiorly with Metzenbaum scissors with good visualization of the bladder. The vesicouterine peritoneum was incised and a bladder flap was created digitally. Bladder blade was inserted. A transverse incision was made in the lower uterine segment with a scalpel. The membranes were ruptured for clear fluid. The infant was noted to be in cephalic presentation. The was delivered atraumatically. The cord was clamped and cut and the infant was handed to the NICU staff. Cord gases were collected. The placenta was delivered manually and the uterus was cleared of all clot and debris. The uterine angles were grasped with ring forceps and the uterus was closed with 1 Vicryl in running locked fashion, securing at 1 angle and tying at the other. Several 0 Vicryl [id number] sutures were used to ensure hemostasis. The area was generally oozy. The uterine incision was again reinspected and noted to be hemostatic. The abdomen was irrigated with normal saline and hemostasis was again confirmed. The gutters were cleared of all clot and debris. Surgicel gel was used for hemostasis. The fascia was then closed with 0 looped PDS in a running fashion, securing each angle separately and tying at the midline. The subcutaneous tissue was irrigated and made hemostatic with cautery. Subcuticular sutures were placed at the level of the fat. The skin was then closed with 4-0 Monocryl in a subcuticular fashion. The patient tolerated the procedure well. Sponge, lap, and needle counts were correct x2, and the patient was taken to the recovery room in stable condition. Dictated by CHARLEEN DAVIDSON MD, RESIDENT FRED BANSAL DO D 04/13/2022 14:58 [id number] T 04/14/2022 01:43 ALVAREZ/MODL documented in this encounter [facility] 04-15-2022 Hospital course Narrative Section Discharge Summary Patient is s/p Section Delivery day 2. course uncomplicated. Patient is breast feeding. contraception abstinence. Discharge to home in stable condition with plans to follow up with OB provider in 6 weeks. Disposition: Home Discharge condition: Stable Medications upon discharge: Medication List START taking these medications oxyCODONE 5 MG immediate release tablet Commonly known as: ROXICODONE Take 1 (one) tablet (5 mg total) by mouth every 4 (four) hours as needed (may repeat) . CONTINUE taking these medications aspirin 81 MG EC tablet levothyroxine 100 MCG tablet Commonly known as: SYNTHROID, LEVOTHROID vitamin with Ca-Iron-FA 27-1 mg Tab Where to Get Your Medications These medications were sent to [id number] - [place], [place] - [address], [place] [address] oxyCODONE 5 MG immediate release tablet documented in this encounter [facility] 04-15-2022 History of Presen t illness Narrative Section Progress Note Assessment/Plan: Status post section: Doing well postoperatively. Continue current care. Subjective: Day 2: Delivery Patient is feeling well without complaint. Pain well controlled. Tolerating regular diet, ambulating, and voiding without difficulty. + Flatus. Patient is . Objective: Vital signs in last 24 hours: Temp: [97.8 F (36.6 C)-98.8 F (37.1 C)] 97.9 F (36.6 C) Heart Rate: [86-90] 87 Resp: [14-16] 16 BP: (106-128)/(62-76) 128/76 General: alert, appears stated age and cooperative Cardiac Eval: regular rate and rhythm Lung Eval: respiratory effort normal Uterine Fundus: firm Incision: healing well, no significant drainage, no dehiscence, no significant erythema DVT Evaluation: No evidence of DVT seen on physical exam. Section Progress Note Assessment/Plan: Status post section: Doing well postoperatively. Continue current care. Hgb 10.6 Subjective: Day 1: Delivery Patient is feeling well without complaint. Pain well controlled. Tolerating regular diet, ambulating, and voiding without difficulty. + Flatus. Patient is . Objective: Vital signs in last 24 hours: Temp: [97.6 F (36.4 C)-98.8 F (37.1 C)] 98.8 F (37.1 C) Heart Rate: [75-91] 88 Resp: [13-18] 16 BP: (92-145)/(64-88) 118/72 General: alert, appears stated age and cooperative Cardiac Eval: regular rate and rhythm Lung Eval: respiratory effort normal Uterine Fundus: firm Incision: Bandage clean and dry DVT Evaluation: No evidence of DVT seen on physical exam. Anesthesia Progress Note 1 Day Post-Op Procedure(s): SECTION Assessment / Plan Comment: In no acute distress. Awake and alert, LOC x 3. KAVITHA x 4, denies LE paresthesias, ambulatory. Denies positional headache, neck pain or stiffness. Questions answered. Temp: [36.4 C-37.1 C] 36.4 C Heart Rate: [75-91] 85 Resp: [13-18] 16 BP: (92-145)/(64-88) 112/70 SpO2: [94 %-100 %] 97 % documented in this encounter [facility] 04-15-2022 Obstetrics Note This note was copied from a baby's chart. LC arrived to room to assess needs prior to discharge. Mom states is going much better and she states baby is ready to breastfeed at this time. Mom requests hands on help with . Mom states she initiated pumping and has pumped a few times but states baby has been doing better at . Assisted with positioning and attachment techniques on right in cross cradle position. Baby latched easily, deep areolar latch, and nursed actively, milk transfer observed, see baby's flowsheet for full assessment. Did not stay for entire feeding. Mom declines further assistance. Encouraged Mom to do waking techniques and breast compressions to help keep baby active at breast. Did not stay entire feeding. Mom declines further assistance and states she is comfortable with plan outlined in consult from yesterday. Discussed indications for pumping and supplementing with ebm/abm. Reviewed with mom the plan of: -Low guzmán attempts at the breast when baby cues. -If baby does not latch with active sucking and swallowing ending in infant satiety, or if baby is offered a supplement, Mom is to pump/hand express and feed EBM with formula as needed, at least 8-12x/24hrs. -Discussed tummy size and appropriate volume for feeds based on baby's age. -Encouraged skin to skin time -Keep a diaper diary -Reviewed the Temporary Breastpumping handout. -Encouraged pump rental at discharge -Reminded mom to remove all disposable pump parts from pump to use at home -[facility]ouraged [facility] in or PRN, and to follow up with baby's primary care provider within 2-3 days, or sooner if needed -Mother has card with helpline number and list of outpatient resources. [facility] 04-14-2022 Obstetrics Note This note was copied from a baby's chart. Arrived back to room. Veronica was attempting to latch baby on left side, states she started latching better to right side recently. Assisted with positioning and attachment techniques. Baby latched but somewhat shallow so had her re-attempt deeper latch. Baby continued to latch shallow so suggested attempting a different position. Attempted positioning and attachment techniques in football and baby latched easily for a deep, areolar latch and breast fed actively with milk transfer and then fell asleep after about 10 mins. Assisted with positioning and attachment techniques on right side and baby latched easily. She was initially sleepy and passive but became more active with breast compression and stimulation, milk transfer noted. Discussed the importance of keeping baby active at the breast and ensure adequate milk transfer and if baby doesn't latch to right side then pump this side. Gave mom the plan of: -Low guzmán attempts at the breast when baby cues. -If baby does not latch with active sucking and swallowing ending in satiety, or if baby is offered a supplement, Mom is to pump/hand express and feed EBM with formula as needed, at least 8-12x/24hrs. -Discussed tummy size and appropriate volume for feeds based on baby's age. -Encouraged skin to skin time -Keep a diaper diary -Reviewed the Temporary Breastpumping handout. Will follow up tomorrow before discharge. [facility] 04-14-2022 Obstetrics Note This note was copied from a baby's chart. Stopped into room to offer assistance. Veronica had baby latched to left side, states baby is latching well to this side but not as well to right side. Observed latch, appeared moderately deep but baby appeared passive and sleepy. Veronica states baby had been feeding about 20 mins on this side so she detached baby since she was sleepy and attempted right side. Baby opened but not very widely so encouraged Veronica to wait for wide open gape, however, she quickly became sleepy and disinterested. Gave Veronica some tips of obtaining a good latch on right side and encouraged her to pump this side if baby continues to not latch well on right side. Will follow up to assist with tomorrow or sooner if possible. Denies further questions at this time. [facility] 04-13-2022 Obstetrics Note LC rounded on mom. Mom states that she is and requests a consult. Mom states she pumped 4ml EBM with her home pump. Encouraged use of hospital grade pump but she states she was able to express more with her home pump with previous child. Gave mom the plan of: -Low guzmán attempts at the breast when baby cues, 8-12x/24hrs. -If baby is not cuing by 3 hours since the start of the previous feeding, recommended waking baby and attempting at that time. -If baby does not latch with active sucking and swallowing Mom is to pump/hand express and feed EBM. -Encouraged skin to skin time -Keep a diaper diary Let mom know that we will try to see her 04/14 and we will contact her closer to that time to schedule an appointment. Courtesy card given with list of outpatient resources and helpline number. [facility] 04-13-2022 Labor and deliver y summary note Section Delivery Note Diagnosis: Principal Problem: Gestational hypertension, third trimester Mother's Information Delivery Blood Loss 04/13/22 1359 - 04/13/22 1451 Quantitative Blood Loss - Delivery (mL) Hospital Encounter 610 mL Total 610 mL Aimee Sams [[id number]] Delivery Anesthesia Method: Spinal Operative Delivery Forceps attempted?: No Vacuum extractor attempted?: No [place] Presentation No data filed [place] Information date/time: 04/13/221413 Gender: Female Delivery type: , Low Transverse Delivery location: OB Unit Provider Present: Routine Initial disposition: Routine NB Care Details: Trial of labor?: No categorization: Repeat priority: Scheduled Indications for : Prior , Low Transverse Skin incision type: Pfannenstiel Delivery Providers Delivering clinician: Fred Bansal DO Other personnel: Provider Role Covering Attending Resident Machine Operator Cane Cutter Delivery Nurse Registered Nurse Delivery Assist Nurse Practitioner Cord Vessels: 3 vessels Complications: None Delayed cord clamping?: Yes Cord clamped date/time: 04/13/20221414 Cord blood obtained?: No Cord segment obtained?: Yes Gases sent?: Yes Stem cell collection (by Provider)?: No Placenta Date/time: 04/13/20221415 Removal: Manual removal Appearance: Intact Disposition: Refrigerator Apgars Living status: Living Scoring Guzmán: 0 1 2 Skin color Blue or pale Acrocyanotic Completely pink Heart rate Absent <100 bpm >100 bpm Reflex irritability No response Grimace Cry or active withdrawal Muscle tone Limp Some flexion Active motion Respiratory effort Absent Weak cry; hypoventilation Good, crying Skin color: Heart rate: Reflex irritability: Muscle tone: Respiratory effort: Total: 1 Minute: 5 Minute: 10 Minute: 15 Minute: 20 Minute: Measurements Weight: Lacerations No data filed Other Procedures Procedures: None [facility] Work Phone: 04-13-2022 Note Formatting of this n ote is different from the original. Brief Post Operative Note Patient Name: Veronica Sams : 1990 (32 y.o.) Date of Service: 04/13/2022 CSN: [id number] Procedure(s): SECTION Pre-Operative Diagnoses: * repeat = HTN 05/03, , 37+1 Post-Operative Diagnoses: SAME Surgeon(s) and Role: * Fred Bansal DO - Primary * Charleen Davidson MD - Resident - Assisting Anesthesiologist: Nessa Schmitt MD HEEL ATTACHER WOOD: Romi Contreras CRNA Corporate Tax Manager: Sherry Duggan Do, RN Corporate Tax Manager Orientee: Palma Salazar RN Scrub Person Orientee: [facility] [place] Flamer After Lasting: DEMETRA Olmos Nursery Nurse: Rebecca Brady RN Assist: Bridget Gordon CNP Operative findings: viable female infant, APGARS per NICU, in cephalic presentation. Clear amniotic fluid, intact placenta, and 3 VC. Normal bilateral ovaries, tubes, and uterus. Moderate adhesive disease. Intra and immediate post-operative complications: None Type of anesthesia used: Spinal Quantitative blood loss: 610 mL from 04/13/2022 1:55 PM to 04/13/2022 2:49 PM Estimated urine output: 50 mL Specimen(s): * No specimens in log * Implant(s): Implant Name Type Inv. Item Serial No. Pattern Puncher Lot No. LRB No. Used Action HEMOSTAT 3G POWDER ABSORBABLE SURGICEL - [id number] HEMOSTAT 3G POWDER ABSORBABLE SURGICEL [id number] ETHICON SKBCPB N/A 1 Implanted Drain(s): Urethral Catheter 16 Fr. (Active) Wound(s): Wound 04/13/22 Surgical Wound Abdomen (Active) Charleen Davidson MD 04/13/2022 2:49 PM [facility] 04-13-2022 Note Formatting of this n ote might be different from the original. VERONICA SAMS [facility] [id number] [facility] [id number] 1990 DATE 04/13/2022 OPERATIVE REPORT SURGEON FRED BANSAL DO NUMERICAL CONTROL NESTING OPERATOR Charleen Davidson MD PREOPERATIVE DIAGNOSES 1. Gestational hypertension. 2. Repeat section. 3. Intrauterine at 37 weeks and 1 day. POSTOPERATIVE DIAGNOSES 1. Gestational hypertension. 2. Repeat section. 3. Intrauterine at 37 weeks and 1 day. PROCEDURE Repeat low transverse section via Pfannenstiel incision. ANESTHESIA Spinal. COMPLICATIONS None. ESTIMATED BLOOD LOSS 610 mL. FLUIDS 2000 mL lactated Ringer's. URINE OUTPUT 50 mL of clear urine. DRAINS Donis catheter. INDICATIONS This is a 32-year-old G3, P1-0-1-1, at 37 weeks and 1 day gestation with a history of gestational hypertension and 1 prior . She presented to Labor and delivery for a scheduled section. FINDINGS Viable female , Apgars per NICU, cephalic presentation, clear amniotic fluid, 3-vessel cord, and intact placenta. Normal-appearing uterus, bilateral tubes and ovaries. Hhllnzk-yo-uyfogmpx adhesive disease. DESCRIPTION OF PROCEDURE This patient was taken to the operating room where spinal anesthesia was found to be adequate. She was then prepped and draped in the normal sterile fashion in the dorsal supine position with a leftward tilt. A Pfannenstiel skin incision was made with a scalpel using the patient's prior Pfannenstiel scar. The incision was carried through the underlying layer of the fascia. The fascia was incised in midline. The fascial incision was extended laterally with Finley scissors. The rectus muscles were dissected off the fascia cranially and caudally using sharp and cautery dissection. The peritoneum was entered sharply in the midline and extended superiorly and inferiorly with Metzenbaum scissors with good visualization of the bladder. The vesicouterine peritoneum was incised and a bladder flap was created digitally. Bladder blade was inserted. A transverse incision was made in the lower uterine segment with a scalpel. The membranes were ruptured for clear fluid. The was noted to be in cephalic presentation. The infant was delivered atraumatically. The cord was clamped and cut and the infant was handed to the NICU staff. Cord gases were collected. The placenta was delivered manually and the uterus was cleared of all clot and debris. The uterine angles were grasped with ring forceps and the uterus was closed with 1 Vicryl in running locked fashion, securing at 1 angle and tying at the other. Several 0 Vicryl [id number]-[id number] sutures were used to ensure hemostasis. The area was generally oozy. The uterine incision was again reinspected and noted to be hemostatic. The abdomen was irrigated with normal saline and hemostasis was again confirmed. The gutters were cleared of all clot and debris. Surgicel gel was used for hemostasis. The fascia was then closed with 0 looped PDS in a running fashion, securing each angle separately and tying at the midline. The subcutaneous tissue was irrigated and made hemostatic with cautery. Subcuticular sutures were placed at the level of the fat. The skin was then closed with 4-0 Monocryl in a subcuticular fashion. The patient tolerated the procedure well. Sponge, lap, and needle counts were correct x2, and the patient was taken to the recovery room in stable condition. Dictated by CHARLEEN DAVIDSON MD, RESIDENT FRED BANSAL DO D 04/13/2022 14:58 [id number] 04/14/2022 01:43 ALVAREZ/MODL [facility] 04-13-2022 History and physical note OB History and Physical Note Patient Name: Veronica Sams : 1990 Admit Date: 04/13/2022 MR #: [id number] ASSESSMENT AND PLAN: Veronica Sams is a 32 y.o. at 37w1d who presents with GHTN and previous section for RLTCS. GHTN - normotensive to mild range Previous LTCS - plan for repeat. Arnold Chiari malformation - pt was instructed not to push with last which lead to scheduled PLTCS,. Tolerated spinal anesthesia during that surgery. Ancef preop Proceed with RLTCS SUBJECTIVE: Veronica Sams is a 32 y.o. at 37w1d who presents with GHTN for RLTCS. also complicated by asymptomatic Arnold chiari malformation as well. Review of Systems Patient reports movement: yes Patient reports loss of fluids: no Patient reports vaginal bleeding: no Patient reports contractions: no Patient denies headache, vision changes, chest pain, shortness of breath, RUQ pain, and leg pain. Past Medical History Obstetrical History OB History Para Term AB Living 3 1 1 0 1 1 SAB IAB Ectopic Multiple Live Births 1 0 0 0 1 # Outcome Date GA Lbr López/2nd Weight Sex Delivery Anes PTL Lv 3 Current 2 Term 01/31/19 38w6d 3175 g (112 oz) M CS-LTranv Spinal LYNNETTE 1 SAB Biochemical Past Medical History Past Medical History: Diagnosis Date Arthritis Chiari I malformation (HCC) Disease of thyroid gland Gestational hypertension, third trimester 12/08/2018 Past Surgical History Past Surgical History: Procedure Laterality Date ANKLE FRACTURE SURGERY Left 2 surgerys SECTION Bilateral 01/31/2019 Procedure: SECTION; Surgeon: Fred Bansal DO; [facility]; Service: OBGYN SECTION, LOW TRANSVERSE WISDOM TOOTH EXTRACTION Family History Family History Problem Relation Age of Onset Hypertension Mother Diabetes Father Cancer Maternal Grandmother Breast cancer Maternal Grandmother Cancer Paternal Grandmother Colon cancer Paternal Grandfather Colon cancer Cousin Ovarian cancer Neg Hx Uterine cancer Neg Hx Medications Prior to Admission medications Medication Sig Start Date End Date Taking? Authorizing Provider aspirin 81 MG EC tablet Take 1 (one) tablet (81 mg total) by mouth daily . Yes Historical Provider, levothyroxine (SYNTHROID, LEVOTHROID) 100 MCG tablet Take 1 (one) tablet (100 mcg total) by mouth daily . 01/22/22 Historical Provider, vitamin with Ca-Iron-FA 27-1 mg Tab Take 1 tablet by mouth daily . Historical Provider, Allergies Allergies Allergen Reactions Nickel Rash Social History She reports that she has never smoked. She has never used smokeless tobacco. She reports current alcohol use. She reports that she does not use drugs. OBJECTIVE: Vitals Temp: [98 F (36.7 C)] 98 F (36.7 C) Heart Rate: [81] 81 Resp: [16] 16 BP: (113-120)/(77-83) 113/77 Physical Exam General: No acute distress, resting comfortably in bed CV: Regular rate, no peripheral edema Pulm: Non-labored breaths Abd: Gravid, soft, nontender Ext: Nontender, no erythema Labs Lab Results Component Value Date ABORH A Positive 04/13/2022 ABSCRN Negative 04/13/2022 GBSPCR Negative for Group B Streptococcus by PCR 12/08/2018 Fred Bansal DO 04/13/2022 1:24 PM [facility] 04-13-2022 History and physical note OB History and Physical Note Patient Name: Veronica Sams : 1990 Admit Date: 04/13/2022 MR #: [id number] ASSESSMENT AND PLAN: Veronica Sams is a 32 y.o. at 37w1d who presents with GHTN and previous section for RLTCS. GHTN - normotensive to mild range Previous LTCS - plan for repeat. Arnold Chiari malformation - pt was instructed not to push with last which lead to scheduled PLTCS,. Tolerated spinal anesthesia during that surgery. Ancef preop Proceed with RLTCS SUBJECTIVE: Veronica Sams is a 32 y.o. at 37w1d who presents with GHTN for RLTCS. also complicated by asymptomatic Arnold chiari malformation as well. Review of Systems Patient reports movement: yes Patient reports loss of fluids: no Patient reports vaginal bleeding: no Patient reports contractions: no Patient denies headache, vision changes, chest pain, shortness of breath, RUQ pain, and leg pain. Past Medical History Obstetrical History OB History Para Term AB Living 3 1 1 0 1 1 SAB IAB Ectopic Multiple Live Births 1 0 0 0 1 # Outcome Date GA Lbr López/2nd Weight Sex Delivery Anes PTL Lv 3 Current 2 Term 01/31/19 38w6d 3175 g (112 oz) M CS-LTranv Spinal LYNNETTE 1 SAB Biochemical Past Medical History Past Medical History: Diagnosis Date Arthritis Chiari I malformation (HCC) Disease of thyroid gland Gestational hypertension, third trimester 12/08/2018 Past Surgical History Past Surgical History: Procedure Laterality Date ANKLE FRACTURE SURGERY Left 2 surgerys SECTION Bilateral 01/31/2019 Procedure: SECTION; Surgeon: Fred Bansal DO; [facility]; Service: OBGYN SECTION, LOW TRANSVERSE WISDOM TOOTH EXTRACTION Family History Family History Problem Relation Age of Onset Hypertension Mother Diabetes Father Cancer Maternal Grandmother Breast cancer Maternal Grandmother Cancer Paternal Grandmother Colon cancer Paternal Grandfather Colon cancer Cousin Ovarian cancer Neg Hx Uterine cancer Neg Hx Medications Prior to Admission medications Medication Sig Start Date End Date Taking? Authorizing Provider aspirin 81 MG EC tablet Take 1 (one) tablet (81 mg total) by mouth daily . Yes Historical Provider, levothyroxine (SYNTHROID, LEVOTHROID) 100 MCG tablet Take 1 (one) tablet (100 mcg total) by mouth daily . 01/22/22 Historical Provider, vitamin with Ca-Iron-FA 27-1 mg Tab Take 1 tablet by mouth daily . Historical Provider, Allergies Allergies Allergen Reactions Nickel Rash Social History She reports that she has never smoked. She has never used smokeless tobacco. She reports current alcohol use. She reports that she does not use drugs. OBJECTIVE: Vitals Temp: [98 F (36.7 C)] 98 F (36.7 C) Heart Rate: [81] 81 Resp: [16] 16 BP: (113-120)/(77-83) 113/77 Physical Exam General: No acute distress, resting comfortably in bed CV: Regular rate, no peripheral edema Pulm: Non-labored breaths Abd: Gravid, soft, nontender Ext: Nontender, no erythema Labs Lab Results Component Value Date ABORH A Positive 04/13/2022 ABSCRN Negative 04/13/2022 GBSPCR Negative for Group B Streptococcus by PCR 12/08/2018 Fred Bansal DO 04/13/2022 1:24 PM documented in this encounter [facility] 02-19-2022 History of Presen t illness Narrative [facility] [address] [address] Dept: [phone] Assessment and Plan: 1. Well adult exam Reviewed chronic conditions. Anticipatory guidance discussed: diet, exercise, family planning, and substance use - Cancer screenings: up to date on pap. Cousin with colon cancer at age 33 years. - Vaccinations: will get flu shot with OB 2. Hypothyroidism, unspecified type Diagnosed as part of infertility workup. Currently being managed with OB. Will assume care . For any new medications prescribed today, patient was educated about indications for the medication, how to take the medication and potential side effects of the medications. Recommended follow up: , patient to schedule Subjective No frame carver spindle was required during this visit. HPI Presented today for Thyroid Problem (New pt to establish, is 29 weeks. Follow up on her thyroid. Has enough pills until delivery. ) and Gap Closure (Health Maintenance) (Refused Flu shot. ) Acute concerns None. Chronic conditions Thyroid - found during infertility workup. OB has been managing, has been normal during . They will manage immediately . Cancer Screenings - Last pap smear with OB, she has not had abnormal findings in the past. Menstrual concerns: currently Medical Screenings - Gonorrhea/Chlamydia, HIV and HCV done with OB. - Immunizations and labs reviewed Anticipatory guidance - Diet and exercise reviewed - Family planning and contraception: currently - Social history reviewed, discussed alcohol/smoking/substance use - Mood: no concerns Review of Systems Constitutional: Negative for fever. HENT: Negative for congestion. Respiratory: Negative for cough and shortness of breath. Cardiovascular: Negative for chest pain, palpitations and leg swelling. Gastrointestinal: Negative for abdominal pain, constipation, diarrhea and nausea. Genitourinary: Negative for dysuria. Psychiatric/Behavioral: Negative for dysphoric mood. The patient is not nervous/anxious. The following portions of the patient's history were reviewed and updated as appropriate: allergies, current medications, past family history, past medical history, past social history, past surgical history, and problem list. Objective BP 117/71 (BP Location: Left arm, Patient Position: Sitting, BP Cuff Size: Adult) Pulse 87 Temp 98.6 F (37 C) (Oral) Ht 5' 7 Wt 89.8 kg (198 lb) LMP (Exact Date) SpO2 96% BMI 31.01 kg/m Physical Exam Constitutional: General: She is not in acute distress. Appearance: She is not toxic-appearing. HENT: Head: Normocephalic and atraumatic. Eyes: General: Right eye: No discharge. Left eye: No discharge. Conjunctiva/sclera: Conjunctivae normal. Cardiovascular: Rate and Rhythm: Normal rate and regular rhythm. Pulses: Normal pulses. Heart sounds: No murmur heard. Pulmonary: Effort: Pulmonary effort is normal. Breath sounds: No wheezing, rhonchi or rales. Abdominal: Comments: gravid Musculoskeletal: Right lower leg: No edema. Left lower leg: No edema. Neurological: Mental Status: She is alert. Psychiatric: Mood and Affect: Mood normal. Speech: Speech normal. Behavior: Behavior normal. Behavior is cooperative. Ivania Atwood MD Family Medicine, Primary Care [facility] Family Medicine, Materials Director Depression Screening 02/19/2022 Little interest or pleasure in doing things 0 Feeling down, depressed, or hopeless 0 PHQ-2 Total Score 0 Trouble falling or staying asleep, or sleeping too much 0 Feeling tired or having little energy 0 Poor appetite or overeating 0 Feeling bad about yourself - or that you are a failure or have let yourself or your family down 0 Trouble concentrating on things, such as reading the newspaper or watching television 0 Moving or speaking so slowly that other people could have noticed. Or the opposite - being so fidgety or restless that you have been moving around a lot more than usual 0 Thoughts that you would be better off , or of hurting yourself in some way 0 PHQ-9 Total Score 0 If you checked off any problems, how difficult have these problems made it for you to do your work, take care of things at home, or get along with other people? Not difficult at all documented in this encounter [facility] Diagnosis Gestational hypertension, third trimester- Primary Postoperative pain Other acute postoperative pain [facility]* Diagnosis Hypothyroidism, unspecified type- Primary Generalized anxiety disorder [facility]* Diagnosis Hypothyroidism, unspecified type- Primary Anxiety Anxiety state, unspecified documented in this encounter [facility] Work Phone: Hospital Discharge instructions* Attachments The following attachments cannot be sent through Care Everywhere. * Section: Post-op (Bolivian) * (Bolivian) [facility] Diagnosis Osteochondral defect - Prima ry Plantar plate injury, right, initial encounter Sesamoiditis Other disorders of bone and cartilage Diagnosis Osteochondral defect - Prima ry Plantar plate injury, right, initial encounter Sesamoiditis Other disorders of bone and cartilage Diagnosis Bronchitis - Primary Bronchitis, not specified as acute or chronic Exposure to the flu Contact with or exposure to other viral diseases Chronic cough Cough Diagnosis Dog bite of nose, initial en counter - Primary Diagnosis Gestational hypertension Unspecified hypertension complicating , childbirth, or the puerperium, unspecified as to episode of care Diagnosis Cervical radiculopathy- Primary Brachial neuritis or radiculitis nos Thoracic radiculopathy Thoracic or lumbosacral neuritis or radiculitis, unspecified Diagnosis Delivery by section using transverse incision of lower segment of uterus- Primary Gestational hypertension Unspecified hypertension complicating , childbirth, or the puerperium, unspecified as to episode of care Diagnosis Cervical radiculopathy Brachial neuritis or radiculitis nos Diagnosis Thoracic radiculopathy Thoracic or lumbosacral neuritis or radiculitis, unspecified Diagnosis Chiari malformation type I (HCC) Compression of brain Spinal stenosis in cervical region Instructions * Patient Instructions - Wilfred Nolasco DO - 06/16/2017 7:25 PM EST Bronchitis: Care Instructions Your Care Instructions Bronchitis is inflammation of the bronchial tubes, which carry air to the lungs. The tubes swell and produce mucus, or phlegm. The mucus and inflamed bronchial tubes make you cough. You may have trouble breathing. Most cases of bronchitis are caused by viruses like those that cause colds. Antibiotics usually do not help and they may be harmful. Bronchitis usually develops rapidly and lasts about 2 to 3 weeks in otherwise healthy people. Follow-up care is a guzmán part of your treatment and safety. Be sure to make and go to all appointments, and call your doctor if you are having problems. It's also a good idea to know your test resultsand keep a list of the medicines you take. How can you care for yourself at home? Take all medicines exactly as prescribed. Call your doctor if you think you are having a problem with your medicine. Get some extra rest. Take an qgwp-eqn-jozeott pain medicine, such as acetaminophen (Tylenol), ibuprofen (Advil, Motrin),or naproxen (Aleve) to reduce fever and relieve body aches. Read and follow all instructions on thelabel. Do not take two or more pain medicines at the same time unless the doctor told you to. Many pain medicines have acetaminophen, which is Tylenol. Too much acetaminophen (Tylenol) can be harmful. Take an oyqa-znn-xtsules cough medicine that contains dextromethorphan to help quiet a dry, hackingcough so that you can sleep. Avoid cough medicines that have more than one active ingredient. Read and follow all instructions on the label. Breathe moist air from a humidifier, hot shower, or sink filled with hot water. The heat and moisture will thin mucus so you can cough it out. Do not smoke. Smoking can make bronchitis worse. If you need help quitting, talk to your doctor about stop-smoking programs and medicines. These can increase your chances of quitting for good. When should you call for help? Call 911 anytime you think you may need emergency care. For example, call if: You have severe trouble breathing. Call your doctor now or seek immediate medical care if: You have new or worse trouble breathing. You cough up dark brown or bloody mucus (sputum). You have a new or higher fever. You have a new rash. Watch closely for changes in your health, and be sure to contact your doctor if: You cough more deeply or more often, especially if you notice more mucus or a change in the color of your mucus. You are not getting better as expected. Where can you learn more? Log into your personal health record on https://netomat.[employer] and enter H333 in the Education box to learn more about Bronchitis: Care Instructions. Current as of: November 04, 2015 Content Version: 11.2 6341-2703 [employer]. Care instructions adapted under license by your healthcare professional. If you have questions about a medical condition or this instruction, always ask your healthcare professional. [employer] disclaims any warranty or liability for your use of this information. in this encounter* Patient Instructions - Marie Lehman MD - 05/10/2017 6:15 PM EST Clean wound daily with soapwater or alcohol pad, and watch for signs of infection (redness, swelling, increasing pain, drainages), return to office if any of above occurs. in this encounter Summary Purpose Family History No Family History Records FoundNo Family History Records FoundNo Family History Records FoundNo Family History Records FoundNo Family History Records FoundNo Family History Records Found Advance Directives No Advanced Directives Records FoundDocuments on File Type Date Recorded Patient Biomedical Electronics Technician Expl anation Advance Directives and Livin g Will 12/08/2018 1:21 PM Latest Code Status on File Code Status Date Activated Date Inactivated Comments Full Code 12/08/2018 2:14 PM Documents on File Type Date Recorded Patient Biomedical Electronics Technician Expl anation Advance Directives and Livin g Will 01/04/2019 10:54 PM Latest Code Status on File Code Status Date Activated Date Inactivated Comments Full Code 01/04/2019 11:07 PM Full Code 12/08/2018 2:14 PM 01/04/2019 10:52 PM Documents on File Type Date Recorded Patient Biomedical Electronics Technician Expl anation Advance Directives and Livin g Will 01/04/2019 10:54 PM Latest Code Status on File Code Status Date Activated Date Inactivated Comments Full Code 01/04/2019 11:07 PM Full Code 12/08/2018 2:14 PM 01/04/2019 10:52 PM Documents on File Type Date Recorded Patient Biomedical Electronics Technician Expl anation Advance Directives and Livin g Will 01/18/2019 11:16 PM Latest Code Status on File Code Status Date Activated Date Inactivated Comments Full Code 01/04/2019 11:07 PM 01/18/2019 10:38 PM Documents on File Type Date Recorded Patient Biomedical Electronics Technician Expl anation Advance Directives and Livin g Will 01/31/2019 11:09 AM Latest Code Status on File Code Status Date Activated Date Inactivated Comments Full Code 01/31/2019 4:18 PM Full Code 01/31/2019 11:01 AM 01/31/2019 4:18 PM Full Code 01/04/2019 11:07 PM 01/18/2019 10:38 PM Documents on File Type Date Recorded Patient Biomedical Electronics Technician Expl anation Advance Directives and Livin g Will 01/31/2019 11:09 AM Advance Directives and Livin g Will 06/12/2019 4:56 PM Latest Code Status on File Code Status Date Activated Date Inactivated Comments Full Code 01/31/2019 4:18 PM Full Code 01/31/2019 11:01 AM 01/31/2019 4:18 PM Full Code 01/04/2019 11:07 PM 01/18/2019 10:38 PM Documents on File Type Date Recorded Patient Biomedical Electronics Technician Expl anation Advance Directives and Livin g Will 01/31/2019 11:09 AM Advance Directives and Livin g Will 06/12/2019 4:56 PM Latest Code Status on File Date Activated Date Inactivated Comments 01/31/2019 4:18 PM Full Code Date Activated Date Inactivated Comments 01/31/2019 11:01 AM 01/31/2019 4:18 PM Full Code Date Activated Date Inactivated Comments 01/04/2019 11:07 PM 01/18/2019 10:38 PM Full Code Date Activated Date Inactivated Comments 12/08/2018 2:14 PM 01/04/2019 10:52 PM Latest Code Status on File Date Activated Date Inactivated Comments 04/13/2022 6:07 PM 04/15/2022 8:55 PM Full Code Date Activated Date Inactivated Comments 04/13/2022 11:39 AM 04/13/2022 6:06 PM Full Code Date Activated Date Inactivated Comments 01/31/2019 4:18 PM 04/13/2022 11:29 AM Latest Code Status on File Code Status Date Activated Date Inactivated Comments Full Code 04/13/2022 6:07 PM 04/15/2022 8:55 PM Code Status History Code Status Date Activated Date Inactivated Comments Full Code 04/13/2022 11:39 AM 04/13/2022 6:06 PM Full Code 01/31/2019 4:18 PM 04/13/2022 11:29 AM Full Code 01/31/2019 11:01 AM 01/31/2019 4:18 PM Full Code 01/04/2019 11:07 PM 01/18/2019 10:38 PM History of Present Illness * Jovi Cruz DPM - 02/01/2017 1:54 PM EDT Formatting of this note may be different from the original. Subjective: Patient ID: Veronica Oneill is a 26 y.o. female. This 5 foot 7 inch 184 pound female presents this date for reevaluation of pain in the right great toe joint. Patient presents partial weightbearing with a Cam boot and crutches. Patient admits she is improved significantly since last being seen HPI: Patient states she is 85% improved of her symptoms since last being seen. Patient denies any leg or calf pain, shortness of breath or chest pain. Patient presents with a pulse of 66 respirationsof 12 The following portions of the patient's history were reviewed and updated as appropriate: allergies, current medications, past family history, past medical history, past social history, past surgicalhistory and problem list. Review of Systems Patient Active Problem List Diagnosis SNOMED CT(R) Encounter for routine gynecological examination PATIENT ENCOUNTER STATUS Osteochondral defect DISORDER OF MUSCULOSKELETAL SYSTEM Plantar plate injury INJURY OF FOOT Sesamoiditis SESAMOIDITIS Objective: Physical Exam Constitutional: She is oriented to person, place, and time. She appears well- developed and well-nourished. HENT: Head: Normocephalic. Eyes: Pupils are equal, round, and reactive to light. Cardiovascular: Normal rate and regular rhythm. Pulmonary/Chest: Effort normal. Neurological: She is alert and oriented to person, place, and time. She has normal reflexes. She displays normal reflexes. No cranial nerve deficit. She exhibits normal muscle tone. Coordination normal. Skin: Skin is warm. No rash noted. No erythema. No pallor. Psychiatric: She has a normal mood and affect. Her behavior is normal. Judgment and thought contentnormal. Right Ankle Exam Range of Motion Dorsiflexion: normal Plantar flexion: normal Inversion: normal Eversion: normal Muscle Strength Dorsiflexion: 5/5 Plantar flexion: 5/5 Anterior tibial: 5/5 Posterior tibial: 5/5 Gastrocsoleus: 5/5 Peroneal muscle: 5/5 Tests Anterior drawer: negative Varus tilt: negative Comments: Vascular: Pedal pulses are 2 4 CFT is equal to 3 seconds. There is no edema of the first MPJ on the right compared to left Lymphatic: No disruption or lymphedema Integument: Skin intact, no open lesions or signs of infection Neurologic: DTRs are intact, sensation are sharp/dull light touch is intact MSK: Patient's mass power tone is normal for age and gender and body habitus. Patient assessed at the first MPJ she has no symptoms with mild range of motion the first MPJ today, little to no discomfort with palpation of the sesamoidal apparatus, significant improvement from last visit Left Ankle Exam Swelling: none Range of Motion Dorsiflexion: normal Plantar flexion: normal Inversion: normal Eversion: normal Muscle Strength Dorsiflexion: 5/5 Plantar flexion: 5/5 Anterior tibial: 5/5 Posterior tibial: 5/5 Gastrocsoleus: 5/5 Peroneal muscle: 5/5 Tests Anterior drawer: negative Varus tilt: negative Neurologic Exam Mental Status Oriented to person, place, and time. Cranial Nerves CN III, IV, Pupils are equal, round, and reactive to light. No results found. Assessment/Plan: Grade 1 osteochondral type injury of the first metatarsal head, sesamoiditis and plantar plate typeinjury, right foot with significant improvement, 85% resolution of her symptoms Plan: Patient educated on findings. We will begin partial weightbearing in the cam walker to full weightbearing by the end of the week and full weightbearing next week but guarded we will see her back in 2 weeks if she is doing well we will consider gradually returning to shoe gear will be pending clinical findings. SNOMED CT(R) 1. Osteochondral defect DISORDER OF MUSCULOSKELETAL SYSTEM 2. Plantar plate injury, right, initial encounter INJURY OF FOOT 3. Sesamoiditis SESAMOIDITIS No orders of the defined types were placed in this encounter. * Qian AlcocerABEL - 02/01/2017 1:52 PM EDT General Follow Up Intake Form Veronica Oneill 02/01/17 5' 7 83.5 kg (184 lb) Body mass index is 28.82 kg/(m^2). Body Parts: Foot Laterality: Right Pain: No Numbness/Tingling: no Mechanical Symptoms: no Instability: no Prior Interventions: x-rays Refill for Medications Requested: no Refill Due: no Improvement from Last Visit: 85% in this encounter* Lyssa Elena CNP - 12/10/2018 1:10 PM EDT Neurology Inpatient Progress [facility] 12/10/2018 Lyssa Elena CNP [facility] Patient: Veronica Sams Date of : 1990 (28 y.o.) Referring Provider: Refer to consult order in electronic medical record PCP: Wilfred Nolasco DO ASSESSMENT: 28 y.o. female with history of no past history, currently 31 weeks , presented to [facility] on 12/08/2018 with headache and vision changes. Neurologic exam is non-focal. Undergoing exam for pre-eclampsia. MRI/MRV unremarkable for acute findings though noted to have Chiari m alformation. Headache currently improved. Suspect etiology of headache is episodic migraine due to non-acute imaging. PLAN: Headache and vision changes Testing: None Treatment: Continue symptomatic therapy, per OB 24-hour urine pending per OB No need for neurology up at this time Chiari Malformation Neurosurgery consulted, planning outpatient follow up No further neurology recommendations. Neurology will sign off. Please re-call with questions. Answered questions and rediscussed plan at length with Patient, . Covering neurologist: Dr. Voss. MR images independently reviewed by me and summarized in Resulted Testing section. D/w DOMINIC Shankar MCKENNA. DIAGNOSTIC TESTING SUMMARY: Resulted Testing: MRI brain: negative for acute findings. Chiari 1 malformation. Significant crowding at level the foramen magnum with indentation of posterior aspect of the medulla and upper cervical cord. MRV: chiari [address] head: No acute process; possible Arnold-Chiari 1 malformation Chem: Unremarkable CBC: Unremarkable SUBJECTIVE: Chief Complaint/Reason for Consult: Headache; Vision changes; Informant(s): Patient History of Present Illness (since last visit): Doing much better this AM. Still has intermittent headache but overall improved. She would like to go home as her imaging was without acute findings. Review of Systems: All systems reviewed and negative except pertinent positives and negatives documented in the History of Present Illness (HPI). OBJECTIVE: Physical Examination: BP (!) 124/54 (BP Location: Right arm, Patient Position: Lying) Pulse 80 Temp 98 F (36.7 C) (Oral) Resp 16 Ht 5' 7 Wt 93.4 kg (206 lb) SpO2 98% BMI 32.26 kg/m GUZMÁN: DNFC: Does Not Follow Commands JULIANE: Unable to Assess GENERAL: General Appearance: In NAD Eyes: See pupils below Ears: See hearing below Neck: Supple Respiratory Effort: Normal Extremities: No edema Skin: No rashes visualized MENTAL STATUS: Alertness, Attention Span & Concentration: Normal Language: Normal Speech: Normal Orientation: Normal Memory, Recent & Remote: Normal Fund of Knowledge: Normal CRANIAL NERVES: II - Visual Munoz: Normal II, III - Pupils: PERRL III, IV, - Eye Movements: Normal (EOMI, no ptosis, no nystagmus) V - Facial Sensation: Normal VII - Face Symmetry and Strength: Normal VIII - Hearing: Normal IX, X - Palate: Normal XI - Shoulder Shrug: Normal XII - Tongue Protrusion: Normal COORDINATION & GROSS MOTOR: Abnormal Movements: None Coordination Pysihr-cy-Whrj: Normal Coordination: Qlxt-Yxcn-Aqdk:Normal Rapid Alternating Movements: Normal Drift: None Tone: Normal Bulk: Normal MOTOR - MUSCLE STRENGTH: Muscle Strength Right Left 5 Shoulder Abduction (Deltoid) 5 5 Elbow Flexion (Biceps) 5 5 Elbow Extension (Triceps) 5 5 Finger Abduction (Interossei) 5 5 Hip Flexion (Iliopsoas) 5 5 Knee Extension (Quads) 5 5 Knee Flexion (Hamstrings) 5 5 Dorsiflexion (Anterior Tibialis) 5 MOTOR GUZMÁN: 5 Normal (Normal Power) 4 Mild Weakness (Movement against moderate resistance over a full range of motion) 3 Moderate Weakness (Movement against gravity over almost full range of motion) 2 Severe Weakness (Movement with gravity eliminated over almost full range of motion) 1 Trace Movement (flicker of contraction visible or palpable) 0 No Movement (No contraction visible or palpable) JULIANE Unable to Assess SENSATION: Fine Touch: Normal * Shellie Roper MD - 12/10/2018 5:27 AM EDT ANTEPARTUM DAILY PROGRESS NOTE Patient Name: Veronica Sams Admit Date: [id number] MR #: [id number] : 1990 ASSESSMENT AND PLAN: Gestational hypertension Assessment & Plan Veronica Oneill is a 28 yo with gestational hypertension at 31w3d with headaches and visual changes. Blood pressures are currently wnl and HELLP labs normal. Will monitor Blood pressures and symptoms. Gestational Hypertension, r/o Pre-eclampsia No home BP medications. Well controlled at home. Normotensive BPs overnight. Continues to report BROWN and RUQ pain. RUQ US 12/09: no evidence of cholelithiasis or choledocholithiasis See below for neuro consult PO pepcid ordered for acid reflux. Labs: HELLP labs nrml 12/08 HELLP labs nrml 12/09 x2 (AM and PM, repeated for persistent BROWN and RUQ pain) 24 hour urine protein 12/09: 200mg HELLP labs 12/10 AM pending Visual Changes with severe BROWN Persistent visual changes, not relieved by rest, Tylenol, Fioricet CT head non-con (12/09): No acute changes, possible arnold chiari I malformation. Neurology following, appreciate recs MR/MRV (12/09): Negative for acute infarct. Chiari 1 malformation. Significant crowding at the levelof the foramen magnum Symptomatic BROWN treatment: BROWN cocktail with IV zofran and IV benadryl has been most effective. FWB ? Monitoring: TID EFM/toco ? BSUS 12/08: vtx, 2021g (86%), 13.5 KENAN Diet: Regular DVT ppx: SCDs Dispo: Inpatient for workup with visual changes and persistent BROWN SUBJECTIVE: This am without complaints. Her BROWN is resolved. She has no RUQ pain currently. Yesterday her BROWN started when she started moving around the room and was OOB. She is looking forward to talking with neurology today regarding the MR/MRV results. I did share results with her and she is aware of the Chiari 1 malformation noted on MR and the normal RUQ US. She denies contractions, denies LOF, denies VB,admits to FM. Denies visual changes this AM. Juan CP, SOB. Review of Systems: The following system(s) were reviewed and pertinent findings noted: Constitutional: No fever or chills. CV: No chest pain or palpitations. Resp: No shortness of breath GI: No abdominal pain Neuro: No headache or visual changes. Obstetric: see HPI MuscSkel: No leg pain OBJECTIVE: Vitals Temp: [97.7 F (36.5 C)-98.6 F (37 C)] 98.6 F (37 C) Heart Rate: [67-87] 80 Resp: [16-18] 16 BP: (113-128)/(57-67) 127/65 Physical Exam Gen: NAD, resting in bed Resp: non labored CV: no peripheral edema Abd: soft, nt, gravid, no fundal tenderness, no ruq pain MS: nontender to palpation, non edematous Neuro: no hyperreflexia or clonus FHTS: 130 / mod hermilo / + accels / - decels [place]: quiet Current medications: famotidine 20 mg Oral Nightly ferrous sulfate 325 mg Oral Daily with breakfast vitamin with Ca-Iron-FA 1 tablet Oral Daily sodium chloride (PF) 5 mL Intravenous Q8H ERIN Associated attestation - Jeff Patterson MD - 12/10/2018 9:40 AM EDT Staff note Pt seen. Resident findings noted and confirmed. Feeling better this am but has noticed some BROWN/ neck discomfort since up. Repeat labs WNL this AM. A/P: clinically stable. If continues to do well and cleared by neuro today, ok for discharge this afternoon. * Yesenia Mora MD - 12/09/2018 5:47 AM EDT ANTEPARTUM DAILY PROGRESS NOTE Patient Name: Veronica Sams Admit Date: [id number] MR #: [id number] : 1990 ASSESSMENT AND PLAN: Veronica Oneill is a 28 yo with gestational hypertension at 31w1d with headaches and visual changes. Blood pressures are currently wnl and HELLP labs normal. Will monitor Blood pressures and symptoms. Gestational Hypertension, r/o Pre-eclampsia Not on any home BP medications. Well controlled at home. Normotensive with no mild range pressures today. Ordered PRN tylenol for headache pain relief. Tried one dose of fioricet overnight with no relief. Will Discuss with Dr. Bansal regarding headache cocktail this morning. Ordered PO pepcid for acid reflux. RUQ pain is worse today without clear etiology. HELLP labs ordered 12/08- normal, repeat 12/09 overnight normal. HELLP labs reordered this morning, 24 hour urine collection started 12/08 Visual Changes Persistent visual changes, not relieved by rest or other factors. 12/[address] without contrast, after discussion with radiology. No acute changes, possible arnold chiari I malformation. FWB ? Monitoring: TID EFM/toco ? BSUS 12/08: vtx, 2021g (86%), 13.5 KENAN Diet: Regular DVT ppx: SCDs Dispo: Inpatient for workup with visual changes and r/o pre-eclampsia SUBJECTIVE: This am continuing to have headaches. Tylenol and one time fioricet hasnt helped much. No longer seeing stars in her vision but continues to have fuzziness. She also had worsening abdominal tightnessand RUQ pain overnight. She was evaluated overnight and repeat labs were ordered. Her labs were normal. She reports contractions overnight that were more regular, but now infrequent and irregular. denies LOF, denies VB, reports FM. Review of Systems: The following system(s) were reviewed and pertinent findings noted: Constitutional: No fever or chills. CV: No chest pain or palpitations. Resp: No shortness of breath GI: + abdominal pain Neuro: +headache and visual changes. Obstetric: see HPI [place]: No leg pain OBJECTIVE: Vitals Temp: [98 F (36.7 C)-98.6 F (37 C)] 98.4 F (36.9 C) Heart Rate: [69-98] 73 Resp: [16-18] 16 BP: (108-130)/(53-73) 130/57 Physical Exam Gen: NAD, resting in bed Resp: non labored CV: no peripheral edema Abd: soft, nt, gravid, no fundal tenderness, no ruq pain MS: nontender to palpation, non edematous Neuro: no hyperreflexia or clonus FHTS: 13/mod/ + accels/ rare variable decels [place]: some regular contractions overnight, irritable after continued monitoring Current medications: famotidine 20 mg Oral Nightly ferrous sulfate 325 mg Oral Daily with breakfast vitamin with Ca-Iron-FA 1 tablet Oral Daily sodium chloride (PF) 5 mL Intravenous Q8H ERIN Associated attestation - Fred Bansal DO - 12/09/2018 7:53 AM EDT Pt seen and examined and agree with resident note. Pt headache persists despite Fioricet yesterday.States 6/10. Visual changes have seemed to subside. Is complaining of RUQ pain as well but was mostly present when having contractions last night. Has been feeling nauseous this am BP normotensive Awaiting results of 24 hr urine, HELLP labs WNL Concerned for the possibility of developing preeclampsia but currently normotensive Will give Zofran and Benadryl IV to see if headache resolves Neuro consulted to eval - CT scan with possible arnold chiari malformation, unsure if this could becausing her symptoms Will await labs and re-eval pt in afternoon. * Kalyn Hernandez - 12/08/2018 2:57 PM EDT Spiritual Health Services Progress Note SITUATION: Introductory pastoral care visit to patient on HROB. Patient's and another family member present throughout this visit. ASSESSMENT/INTERVENTION: Veronica reports she is Confucianist, active in her eulalia. They attend [facility], and decline offer to call their parish to inform of this admission. Provided information regarding pastoral care services, 04/01 availability, and how to contact. Provided spiritual encouragementand blessing on . RECOMMENDATION: Pastoral Care team will remain available to support patient and family PRN. 12/08/18 1456 Clinical Encounter Type Visit Type Non Crisis Non Crisis Visit Introduction; Support Visited With Patient and family together Visit Length (minutes) 1-15 Patient Spiritual Assessment Spiritual Assessed Yes Congregational Affiliation Confucianist Active in tenriism Yes Place of gnosticism [facility] Barber Hernandez MDiv., [facility] Women's Health [employer] T[employer] Practitioner [facility] ; pager: [phone] documented in this encounter* Gregg Turcios DO - 01/11/2019 5:31 PM EDT I note that the patient has not followed up with me. She has history of significant Chiari more information. She had been discharged prior to me seeing her. I did discuss her situation with the SYSTEMS PROGRAM MANAGER service and I also dictated note approximately 1 month ago which is in the electronic medical record. I will have my office contact the patient to see if she would like to follow-up. I will have my office send her SYSTEMS PROGRAM MANAGER my note. documented in this encounter* Gregg Turcios, - 12/10/2018 11:18 PM EDT I came by to see pt earlier today but she had already been DC'd Her MRI demonstrated a significant Chiari 1 malformation below the foramen magnum by 15mm. No hydro. No visible syrinx but thoracic MRI not done. Discussed with covering OB resident. Appeared it was felt that pt could simply FU with me as an outpatient which could be done. At this point I think it would be a good Idea to have her Fu as an outpatient as I didn't get to see her this admission and probably she should see me prior to delivery. Some concerns I have around her chiari is that she has a significant chiari with significant crowding at the level of the foramen magnum. She could have symptoms related to her Chiari with a difficult vaginal delivery. should probably be at a low threshold. Also if she had a CSF leak with an epidural this could result in neurological worsening and she would need treated with a blood patchright away. Excessive neck extension could also result in negative consequences. At some point ideally when not she may require a Chiari decompression. Call if questions. Dr. Turcios. documented in this encounter* Gregg Turcios DO - 01/16/2019 6:39 PM EDT I saw Veronica duncna in the office today for evaluation. She is 37 weeks and is currently onmodified bedrest. She reports having occasional specks of high blood pressure into the 150s and a low level of protein in the urine. She states she has not officially been diagnosed with preeclampsia. He does admit to occasional headaches and often when she has headaches they are in the occiput region. She has noted prior to becoming that when she would be involved in heavy lifting she would develop headaches in the back of her head. Coughing or sneezing does not cause headaches. Neck extension also does not cause neurological symptoms are not headaches. Patient is not having difficulty with her balance and coordination or numbness or tingling. On exam the patient is alert and oriented and does not have nystagmus. She did not have long track signs and her reflexes are 1-2 out of 4 throughout. Her coordination and gait was grossly intact. I reviewed her MRI imaging with her and showed her where she had a significant Chiari I malformation with tonsils extending approximately 15 mm below the foramen magnum and actually even below C1. There was a tight foramen magnum but there was no hydrocephalus and no syrinx as far as I can see down in the upper cervical spine. I note thatthe patient did not have cervical or thoracic MRI imaging to evaluate for syrinx. Assessment/Plan: Again I had extensive discussion with the patient today in regards to her Chiari malformation. She does have a very significant Chiari and some considerations in terms of delivery would be that if she develops symptoms related to her Chiari during a difficult vaginal delivery that a should probably be at a low threshold. Also if she would develop a CSF leak with an epidural this could result neurological worsening and she would need to be treated with a blood patch right away. Excessive neck extension could also result in negative consequences. After the patient hasdelivered her child and had some time to recover I would like to see her back in the office with MRI imaging of the cervical and thoracic spine to evaluate for syrinx. At that point we also would discus possible surgical intervention/Chiari decompression. Please call me if there is further questions or concerns. * Janet Smith RN - 01/16/2019 3:04 PM EDT Veronica presents today to discuss Chiari malformation prior to giving . [facility] Patient states she has had some headaches but not the severity that it was. She has been on modified bed rest and feels this has helped. She has always carried tension in her shoulders and neck and attributes headaches to this. documented in this encounter* Anh Rosario RN - 01/18/2019 10:[address] Maradiaga updated on patients cervical exam and EFM tracing. Ok to d/c home with labor precautions. documented in this encounter* Aleyda Portillo MD - 02/02/2019 8:01 AM EDT Section Progress Note Assessment/Plan: Status post section: Doing well postoperatively. Continue current care. Desires dc tomorrow, instructions reviewed. Subjective: Day 2: Delivery Patient is feeling well without complaint. Pain well controlled. Tolerating regular diet, ambulating, and voiding without difficulty. + Flatus. Patient is . Objective: Vital signs in last 24 hours: Temp: [97.9 F (36.6 C)-98.8 F (37.1 C)] 97.9 F (36.6 C) Heart Rate: [88] 88 Resp: [14-16] 16 BP: (113-120)/(67-77) 113/67 General: alert, appears stated age and cooperative Cardiac Eval: regular rate and rhythm Lung Eval: respiratory effort normal Uterine Fundus: firm Incision: healing well, no significant drainage, no dehiscence, no significant erythema DVT Evaluation: No evidence of DVT seen on physical exam. * Elva Judd RN - 02/01/2019 3:50 PM EDT Anesthesia Progress Note 1 Day Post-Op Procedure(s): SECTION Comment: In no acute distress. Awake and alert, LOC x 3. KAVITHA x 4, denies LE paresthesias, ambulatory. Denies positional headache, neck pain or stiffness. Questions answered. Temp: [36.5 C-37.1 C] 37.1 C Heart Rate: [70-91] 88 Resp: [14-16] 16 BP: (103-122)/(61-83) 114/77 * Fred Bansla DO - 02/01/2019 6:47 AM EDT Section Progress Note Assessment/Plan: Status post section: Doing well postoperatively. Continue current care. Subjective: Day 1: Delivery Patient is feeling well without complaint. Pain well controlled. Tolerating regular diet, ambulating, and voiding without difficulty. + Flatus. Patient is . Objective: Vital signs in last 24 hours: Temp: [97.7 F (36.5 C)-98.6 F (37 C)] 98.3 F (36.8 C) Heart Rate: [70-91] 76 Resp: [13-21] 14 BP: (103-129)/(59-86) 110/69 General: alert, appears stated age and cooperative Cardiac Eval: regular rate and rhythm Lung Eval: respiratory effort normal Uterine Fundus: firm Incision: healing well, no significant drainage, no dehiscence, no significant erythema DVT Evaluation: No evidence of DVT seen on physical exam. documented in this encounter* Prisca Carrillo CMA - 07/11/2019 9:37 AM EST Patient is scheduled for 07/12/19 * Gregg Turcios DO - 07/11/2019 9:01 AM EST I reviewed the patient's recent MRI of the cervical spine which demonstrates a very significant Chiari malformation and also significant cervical stenosis. She needs to follow-up with with us in the office to further discuss the above findings. My office has been instructed to get in contact with her in regards the above schedule a follow-up appointment in the near future. documented in this encounter* Gregg Turcios DO - 07/12/2019 8:51 AM EST Veronica Sams follows up in the office today for evaluation. She is status post a delivery of a healthy baby which is now approximately 6 months old. I brought her in to follow-up in regards to MRI imaging of her cervical spine and thoracic spine. Noted is she has a very significant Chiari malformation which was diagnosed prior to . Upon further questioning today the patient doesadmit to some occipital region headaches which do seem to be exacerbated by straining or lifting. She denies any significant numbness or tingling. She states she is never been well coordinated and isunsure whether she has some minor coordination issues but states she again has not been coordinated in the past. She denies any radicular type symptoms. On exam the patient did not have nystagmus. She also did not have long track signs or dysmetria. She had some minor difficulty with walking heel-to-toe. Her motor and sensory exam are grossly intact. I reviewed the patient's MRI of the cervical spine with her. She has a very significant Chiari I malformation with cerebellar tonsils extending slightly beyond C1 in approximately 19 mm below the foramen magnum. There is associated compression of the tonsils and cervical medullary junction with medullary kink. There is no abnormal cord signal. Also noted in the cervical spine there is central cervical stenosis. At C3-4 there is near cord impingement with canal diameter at around 8 mm. At C4-5 there canal diameter is approximately 6 mm in part due to a central disc. There is mild cord impingement at that level. At C5- 6 there is central narrowing with approximately 7 mm of residual canal and near cord impingement. There is no significant stenosis or narrowing elsewhere with only mild central narrowing at C6/7. There is no lateral stenosis present. I had an extensive discussion with the patient using her MRI and also a model in regards to her Chiari malformation and potential Chiari and cervical surgery. We discussed the fact that the patient has a significant Chiari malformation and appears to have some mild Chiari symptoms. More remote imaging was negative for hydrocephalus and the patient is not having chronic longstanding headaches but r ather intermittent Chiari type headaches in the occipital region. I recommend the patient consider a Chiari decompression and also a possible cervical decompression plus or minus fixation fusion. In terms of the Chiari because her Chiari is so significant and there is compression of the tonsils andcervical medullary junction and some Chiari type symptoms I recommended she consider a Chiari decompression. This would include a suboccipital craniectomy, C1 laminectomy, shrinking and possibly evenpartial resection of the tonsils, establishment of good CSF flow, and duraplasty. At the same time we also could potentially perform a simple cervical decompression posteriorly with removal of the posterior ring to make more room for the spinal cord from C3 down to C5. Typically we do perform fixation fusion with these decompressions but this is pretty focal and we can completely the joints alone. She could be followed occasionally for development of any type of deformity at which point she could be fixated but with preservation of all joints which would be the case as there is no significantlateral stenosis at the simple decompression could be just fine and she could avoid increased risk of adjacent segment disease requiring more surgery in the future. Another possibility would be to simply monitor her with serial exams on a routine basis for development of early myelopathy. Similarlywe can simply monitor her Chiari but again I would recommend that she consider surgery for both herChiari and cervical stenosis. Because of the degree of stenosis she is at risk for cord injury should she be involved in a trauma or simply have further degeneration worsening over time. Also with Chiari malformation longstanding symptoms tend not to improve post decompression. The patient states she would like to follow-up with her to further discuss her situation and possible surgery. She will be calling our office with a date which she can follow-up with her present. Please call me if there is further questions or concerns. Janet Melchor RN - 07/12/2019 7:45 AM VIVIENNE Veronica has a known chiari malformation. She was last seen 01/16/19 when she was 37 weeks . She had a 01/31/19. 06/12/19 MRI C/T Sp[facility] in [facility]. Veronica has been doing well. She still does have intermittent headaches that are more posterior innature with tension in her shoulders. She gets occasional floaters with her headaches but denies other disturbances. documented in this encounter* Candelaria Enrique - 12/19/2018 4:55 PM EDT Approached patient for participation in [facility] clinical trial. Discussed purpose of the study, potential risks vs benefits, alternative options, confidentiality of records, and financial responsibility. Emphasized voluntary nature of research involvement and explained the process to withdraw authorization. She was provided contact information for Dr. Palma Quigley; as well as relevant contacts for research questions. Patient verbalized understanding and all questions were answered. She was provided adequate time to review the Informed Consent form. Patient wishes to participate and signed the Informed Consent form. documented in this encounter Discharge Instructions * Discharge Instr - Other Orders* Adela Martínez RN - 12/10/2018 2:43 PM EDT Discharge instructions given to pt both verbal and written. Pt verbalizes understanding. All questions and concerns addressed. Pt discharged home. * Attachments The following attachments cannot be sent through Care Everywhere. * : Kick Counts ([place]) * : WEEKS 30 TO 32 (ARGENTINE) documented in this encounter* Attachments The following attachments cannot be sent through Care Everywhere. * : KICK COUNTS (ARGENTINE) * : WEEK 37 (ARGENTINE) documented in this encounter* Discharge Instr - Care Coordination* Augusta Waggoner RN - 02/02/2019 10:39 AM EDT RESOURCES FOR PRIMARY CARE [facility] Referral Service: Call (use option 1) * Additional Instructions* Beata Toth RN - 02/02/2019 Section: What to Expect at Home Your Recovery A section, or , is surgery to deliver your baby through a cut, called an incision, that the doctor makes in your lower belly and uterus. You may have some pain in your lower belly and need pain medicine for 1 to 2 weeks. You can expect some vaginal bleeding for several weeks. You will probably need about 6 weeks to fully recover. It is important to take it easy while the incision is healing. Avoid heavy lifting, strenuous activities, or exercises that strain the belly muscles while you are recovering. Ask a family member or friend for help with housework, cooking, and shopping. This care sheet gives you a general idea about how long it will take for you to recover. But each person recovers at a different pace. Follow the steps below to get better as quickly as possible. How can you care for yourself at home? Activity Rest when you feel tired. Getting enough sleep will help you recover. Try to walk each day. Start by walking a little more than you did the day before. Bit by bit, increase the amount you walk. Walking boosts blood flow and helps prevent pneumonia, constipation, and blood clots. Avoid strenuous activities, such as bicycle riding, jogging, weightlifting, and aerobic exercise, for 6 weeks or until your doctor says it is okay. Until your doctor says it is okay, do not lift anything heavier than your baby. Do not do sit-ups or other exercises that strain the belly muscles for 6 weeks or until your doctorsays it is okay. Hold a pillow over your incision when you cough or take deep breaths. This will support your belly and decrease your pain. You may shower as usual. Pat the incision dry when you are done. You will have some vaginal bleeding. Wear sanitary pads. Do not douche or use tampons until your doctor says it is okay. Ask your doctor when you can drive again. You will probably need to take at least 6 weeks off work. It depends on the type of work you do andhow you feel. Ask your doctor when it is okay for you to have sex. Diet You can eat your normal diet. If your stomach is upset, try bland, low-fat foods like plain rice, broiled chicken, toast, and yogurt. Drink plenty of fluids (unless your doctor tells you not to). You may notice that your bowel movements are not regular right after your surgery. This is common. Try to avoid constipation and straining with bowel movements. You may want to take a fiber supplement every day. If you have not had a bowel movement after a couple of days, ask your doctor about taking a mild laxative. If you are , limit alcohol. Alcohol can cause a lack of energy and other health problems for the baby when a woman drinks heavily. It can also get in the way of a mom's ability to feed her baby or to care for the child in other ways. There isn't a lot of research about exactly how much alcohol can harm a baby. Having no alcohol is the safest choice for your baby. If youchoose to have a drink now and then, have only one drink, and limit the number of occasions that you have a drink. Wait to breastfeed at least 2 hours after you have a drink to reduce the amount of alcohol the baby may get in the milk. Medicines Your doctor will tell you if and when you can restart your medicines. He or she will also give you instructions about taking any new medicines. If you take blood thinners, such as warfarin (Coumadin), clopidogrel (Plavix), or aspirin, be sure to talk to your doctor. He or she will tell you if and when to start taking those medicines again. Make sure that you understand exactly what your doctor wants you to do. Take pain medicines exactly as directed. ? If the doctor gave you a prescription medicine for pain, take it as prescribed. ? If you are not taking a prescription pain medicine, ask your doctor if you can take an nnew-pjz-hhmzrap medicine. If you think your pain medicine is making you sick to your stomach: ? Take your medicine after meals (unless your doctor has told you not to). ? Ask your doctor for a different pain medicine. If your doctor prescribed antibiotics, take them as directed. Do not stop taking them just because you feel better. You need to take the full course of antibiotics. Incision care If you have strips of tape on the incision, leave the tape on for a week or until it falls off. Wash the area daily with warm, soapy water, and pat it dry. Don't use hydrogen peroxide or alcohol,which can slow healing. You may cover the area with a gauze bandage if it weeps or rubs against clothing. Change the bandage every day. Keep the area clean and dry. Other instructions If you breastfeed your baby, you may be more comfortable while you are healing if you place the baby so that he or she is not resting on your belly. Try tucking your baby under your arm, with his or her body along the side you will be feeding on. Support your baby's upper body with your arm. With that hand you can control your baby's head to bring his or her mouth to your breast. This is sometimes called the football hold. Follow-up care is a guzmán part of your treatment and safety. Be sure to make and go to all appointments, and call your doctor if you are having problems. It's also a good idea to know your test resultsand keep a list of the medicines you take. When should you call for help? Call 911 anytime you think you may need emergency care. For example, call if: You have thoughts of harming yourself, your baby, or another person. You passed out (lost consciousness). You have chest pain, are short of breath, or cough up blood. You have a seizure. Call your doctor now or seek immediate medical care if: You have pain that does not get better after you take pain medicine. You have severe vaginal bleeding. You are dizzy or lightheaded, or you feel like you may faint. You have new or worse pain in your belly or pelvis. You have loose stitches, or your incision comes open. You have symptoms of infection, such as: ? Increased pain, swelling, warmth, or redness. ? Red streaks leading from the incision. ? Pus draining from the incision. ? A fever. You have symptoms of a blood clot in your leg (called a deep vein thrombosis), such as: ? Pain in your calf, back of the knee, thigh, or groin. ? Redness and swelling in your leg or groin. You have signs of preeclampsia, such as: ? Sudden swelling of your face, hands, or feet. ? New vision problems (such as dimness, blurring, or seeing spots). ? A severe headache. Watch closely for changes in your health, and be sure to contact your doctor if: You do not get better as expected. Where can you learn more? Log into your personal health record on [email or web address] and enter M056 in the Education box to learn more about Section: What to Expect at Home. Current as of: February 16, 2018 Content Version: 05.14-2019 [employer]. Care instructions adapted under license by your healthcare professional. If you have questions about a medical condition or this instruction, always ask your healthcare professional. [employer] disclaims any warranty or liability for your use of this information. Discharge education completed. documented in this encounter Reason for Referral Status Reason Specialty Diagnoses / Procedures Referred By Contact Referred To Contact Pending Review Radiology Diagnoses Thoracic radiculopathy Procedures MR Thoracic Spine With Contrast Gregg Turcios, DO [address] [place] [address] Status Reason Specialty Diagnoses / Procedures Referred By Contact Referred To Contact Pending Review Radiology Diagnoses Cervical radiculopathy Procedures MR Cervical Spine Without Contrast Gregg Turcios, [address] [place] [address] Status Reason Specialty Diagnoses / Procedures Referre d By Contact Referred To Contact Closed Radiology Diagnoses Cervical radiculopathy Procedures MR Cervical Spine Without Contrast Gregg Turcios, DO [address] [place] [address] Additional Source Comments INFORMATION SOURCE (unrecogn ized section and content) DATE CREATED AUTHOR AUTHOR'S ORGANIZ ATION 02/06/2022 [facility] DATE CREATED AUTHOR AUTHOR'S ORGANIZ ATION 10/20/2022 [facility] DATE CREATED AUTHOR AUTHOR'S ORGANIZ ATION 11/29/2022 [facility] DATE CREATED AUTHOR AUTHOR'S ORGANIZ ATION 02/12/2023 [facility] DATE CREATED AUTHOR AUTHOR'S ORGANIZ ATION 02/15/2023 [facility] Reason for Visit (unrecogniz ed section and content) Reason Comments Headache ^bp, DA from Dr. Gaby mckeon Status Reason Specialty Diagnoses / Procedures Referre d By Contact Referred To Contact Reason Comments Follow-up hospital F/U Reason Comments Scheduled fob @ side, + fm, de nies lof or vag bleed Status Reason Specialty Diagnoses / Procedures Referre d By Contact Referred To Contact Diagnoses Primary = gentle, GHTN /, , 38+6 Procedures SECTION Status Reason Specialty Diagnoses / Procedures Referre d By Contact Referred To Contact Closed Radiology Diagnoses Cervical radiculopathy Procedures MR Cervical Spine Without Contrast Gregg Turcios, DO [address] [place] [address] Status Reason Specialty Diagnoses / Procedures Re ferred By Contact Referred To Contact New Request Radiology Diagnoses Thoracic radiculopathy Procedures MR Thoracic Spine Without Contrast MR Thoracic Spine With Contrast Gregg Turcios, DO [address] [place] [address] Reason Comments Follow-up Reason Comments Thyroid Problem New pt to establish, is 29 weeks. Follow up on her thyroid. Has enough pills until delivery. Gap Closure (Health Maintenance) Refused Flu shot. Reason Comments Scheduled Specialty Diagnoses / Procedures Referred By Contac t Referred To Contact Diagnoses repeat = HTN 05/03, , 37+1 Procedures SECTION Referral ID Status Reason Start Date Expiration Date Visits Re quested Visits Authorized [id number] 1 1 Reason Comments Follow-up Thyroid medication Gap Closure (Health Maintenance) HIV Scr eening Never doneHepatitis C Screening Never donePap Smear due on 07/24/2018COVID-19 Vaccine(4 - Booster for Moderna series) due on 07/27/2021 Reason Comments Labs Only Needs thyroid checke d regularly () New Patient Visit Yesenia Mora MD - 12/08/2018 12:45 PM EDTPlante, Fred Moser DO - 01/31/2019 1:01 PM EDT H&P Notes (unrecognized sect ion and content) ANTEPARTUM H&P Patient Name: Veronica Sams Admit Date: [id number] MR #: [id number] : 1990 Physicians: Wilfred Nolsaco DO (Family); Dr. Bansal (Referring) CC: Headache and visual changes Direct Admit Patient of Dr. Bansal ASSESSMENT AND PLAN: Veronica Oneill is a 28 yo with gestational hypertension at 31w1d with headaches and visual changes. Blood pressures are currently wnl and HELLP labs normal. Will monitor Blood pressures and symptoms. Gestational Hypertension, r/o Pre-eclampsia Not on any home BP medications. Well controlled at home. Normotensive with no mild range pressures today. Ordered PRN tylenol for headache pain relief. Ordered PO pepcid for acid reflux. Will re-evaluate epigastric/ RUQ pain following trial of antacids. HELLP labs ordered 12/08- normal. 24 hour urine collection started 12/08 Visual Changes Persistent visual changes, not relieved by rest or other factors. Ordered head CT without contrast, after discussion with radiology. FWB Monitoring: TID EFM/toco BSUS 12/08: vtx, 2021g (86%), 13.5 KENAN Diet: Regular DVT ppx: SCDs Dispo: Inpatient for workup with visual changes and r/o pre-eclampsia d/w Dr. Roper, Senior Resident and Dr. Bansal, attending physician and primary OB HISTORY OF PRESENT ILLNESS: Veronica Sams is a 28 y.o. with gestational HTN at 31w1d presenting as a direct admit from Dr. Bansal and complaining of headaches and visual changes. She was recently diagnosed with gHTN in the clinic due to BP of 142/80s and 130s/90s. She has been monitoring her BP at home and reports the highest BP as 131/88. She had a 24 hour protein in office which was 220mg. For the last week, she started having a diffuse headache. She has tried tylenol with minimal relief. She denies any previous history of headaches. She has also had some visual changes. She describes seeing spots in her vision, occasionally. She reports that this occurs even at rest. She also reports baseline SOB, ongoing for last 2-3 weeks. She has also had some burning epigastric pain/RUQ pain, which feels like reflux. She has tried TUMS which helps, but she sometimes gets nauseous with the reflux and isn't able to take the PO TUMS. Has not tried pepcid. Denies chest pain, fevers or chills. PAST MEDICAL HISTORY: Obstetric History OB History Para Term AB Living 1 0 0 0 0 0 SAB TAB Ectopic Multiple Live Births 0 0 0 0 0 # Outcome Date GA Lbr López/2nd Weight Sex Delivery Anes PTL Lv 1 Current Medical History Past Medical History: Diagnosis Date Arthritis Gestational hypertension, third trimester 12/08/2018 Surgical History Past Surgical History: Procedure Laterality Date ANKLE FRACTURE SURGERY 2 surgerys Family History Family History Problem Relation Age of Onset Diabetes Father Cancer Maternal Grandmother Breast cancer Maternal Grandmother Cancer Paternal Grandmother Colon cancer Paternal Grandfather Ovarian cancer Neg Hx Uterine cancer Neg Hx Social History She reports that she has never smoked. She has never used smokeless tobacco. She reports that she drinks alcohol. She reports that she does not use drugs. MEDICATIONS: Prior to Admission medications Medication Sig Start Date End Date Taking? Authorizing Provider predniSONE (DELTASONE) 10 MG tablet 4 tabs qd x 3 days then 3 tabs qd x 3 days then 2 tabs qd for 3 days then 1 tab qd for 3 days then stop.. 06/16/17 Wilfred Nolasco, ALLERGIES: Patient has no known allergies. I have reviewed the patient's allergies. REVIEW OF SYSTEMS: The following system(s) were reviewed and pertinent findings noted: Constitutional: No fever or chills. HEENT: No cough or hematemesis CV: No chest pain or palpitations. Resp: No dyspnea, cough, or wheezing. GI: +abdominal pain. No nausea, vomiting, or diarrhea. : No vaginal bleeding, leakage of fluid, dysuria or hematuria. Neuro: + headache or visual changes. Integumentary: No skin rashes or lesions. Obstetric: See HPI MuscSkel: No arthralgias or edema. Allergic/Immunologic: Patient has no known allergies.. Heme/Lymph: No frequent bleeding or bruising. Psych: No depression or anxiety. OBJECTIVE: Vitals: Temp: [98 F (36.7 C)] 98 F (36.7 C) Heart Rate: [98] 98 Resp: [18] 18 BP: 138/70 Temp: [98 F (36.7 C)] 98 F (36.7 C) Heart Rate: [98] 98 Resp: [18] 18 Physical Exam: Gen: Pt well nourished and in no acute distress HEENT: Head normocephalic. Eyes with clear conjunctiva/sclera bilaterally Pulm: Non-labored reg breaths. No accessory muscle use. , CTAB. No wheezing, crackles., No resp distress. CV: Reg rate. negative peripheral edema Abdomen: Gravid, soft, nontender, nondistended, no hepatosplenomegaly, no mass, normal bowel sounds Neuro: Pt alert and oriented Psych: Mood appropriate Skin: No rashes or ulcers FHTs: 125/mod/+accels/no decels [place]: quiet Labs and Additional Data Reviewed: Laboratory 12/08/18 4:31 PM Normal HELLP labs Ultrasound: BSUS 12/08: vtx, 2021g (86%), 13.[address] Roper, Senior Resident Associated attestation - Fred Bansal DO - 12/10/2018 5:20 PM EDT Pt seen and examined by me agree with resident notedocumented in this encounter OB History and Physical Note Patient Name: Veronica Sams : 1990 Admit Date: 01/31/2019 MR #: [id number] ASSESSMENT AND PLAN: Veronica Sams is a 28 y.o. at 38w6d who presents with GHTN and ARonld Chairi malformation for elective primary C section.. Recommended that pt not push for an extended period of time due to arnold chair malformation per neurosurgery Discussed risks and benefits of IOL vs elective LTCS and pt chose LTCS GBS neg PNL WNL SUBJECTIVE: Veronica Sams is a 28 y.o. at 38w6d who presents with GHTN and arnold Chiari malformation. Pt has had GHTN since 30 weeks not on medication. Pts BPs have been. normotensive to mild range. Never developed preeclampsia. She was diagnosed with an Arnold Chiari malformation in this when admitted for new onset GHTN with BROWN. Her HAs have been thought to be caused by her malformation. Review of Systems Patient reports movement: yes Patient reports loss of fluids: no Patient reports vaginal bleeding: no Patient reports contractions: no Patient denies headache, vision changes, chest pain, shortness of breath, RUQ pain, and leg pain. Past Medical History Obstetrical History OB History Para Term AB Living 1 0 0 0 0 0 SAB TAB Ectopic Multiple Live Births 0 0 0 0 # Outcome Date GA Lbr López/2nd Weight Sex Delivery Anes PTL Lv 1 Current Past Medical History Past Medical History: Diagnosis Date Arthritis Gestational hypertension, third trimester 12/08/2018 Past Surgical History Past Surgical History: Procedure Laterality Date ANKLE FRACTURE SURGERY Left 2 surgerys WISDOM TOOTH EXTRACTION Family History Family History Problem Relation Age of Onset Diabetes Father Cancer Maternal Grandmother Breast cancer Maternal Grandmother Cancer Paternal Grandmother Colon cancer Paternal Grandfather Ovarian cancer Neg Hx Uterine cancer Neg Hx Medications Prior to Admission medications Medication Sig Start Date End Date Taking? Authorizing Provider ondansetron (ZOFRAN) 4 MG tablet Take 1 (one) tablet (4 mg total) by mouth every 6 (six) hours as needed for nausea . 12/10/18 01/09/19 Kristal Collazo MD vitamin with Ca-Iron-FA 27-1 mg Tab Take 1 tablet by mouth daily . Historical Provider, Allergies Allergies Allergen Reactions Nickel Rash Social History She reports that she has never smoked. She has never used smokeless tobacco. She reports current alcohol use. She reports that she does not use drugs. OBJECTIVE: Vitals Temp: [98.3 F (36.8 C)] 98.3 F (36.8 C) Heart Rate: [79] 79 Resp: [18] 18 BP: (129)/(79) 129/79 Physical Exam General: No acute distress, resting comfortably in bed CV: Regular rate, no peripheral edema Pulm: Non-labored breaths Abd: Gravid, soft, nontender Ext: Nontender, no erythema Cervix: cl / thick / -2 FHT: Cat 1 [place]: quiet Labs Lab Results Component Value Date ABORH A Positive 01/30/2019 ABSCRN Negative 01/30/2019 GBSPCR Negative for Group B Streptococcus by PCR 12/08/2018 Fred Bansal DO 01/31/2019 1:01 PM documented in this encounter Shawn Keita MD - 12/09/2018 8:45 AM EDT Consult Notes (unrecognized section and content) Associated Order(s): IP CONSULT TO NEUROLOGY Neurology Inpatient Consult [facility] 12/09/2018 Shawn Keita MD [facility] Patient: Veronica Sams Date of : 1990 (28 y.o.) Referring Provider: Refer to consult order in electronic medical record PCP: Wilfred Nolasco DO ASSESSMENT: 28 y.o. female with history of no past history, currently 31 weeks , presented to [facility] on 12/08/2018 with headache and vision changes. Neurologic exam is non-focal. CT head is non-acute. She is currently under evaluation for pre-eclampsia. Etiology seems most consistent with episodic migraine, but will rule out PRES and CVT, given her current status and symptoms. PLAN: Headache and vision changes Testing: MRI Head, MRV Head Treatment: Continue symptomatic therapy, per OB Further recommendations to follow imaging 24-hour urine pending Answered questions and rediscussed plan at length with Patient. Covering neurologist: Dr. Keita. Discussed plan with other teams' providers, specifically OB (Dr. Bansal). CT images independently reviewed by me and summarized in Resulted Testing section. DIAGNOSTIC TESTING SUMMARY: Pending Lab and Radiology Results Order Current Status Group B Strep PCR, Vaginal/Rectal In process Resulted Testing: (MRI/CT/XR, EEG, EMG, CSF, Cardiac, Labs) Radiology images independently reviewed by me with my comments immediately below: CT head: No acute process; possible Arnold-Chiari 1 malformation Chem: Unremarkable CBC: Unremarkable Total protein: 6.1 Urine protein: 13.2 I have personally reviewed/visualized the patient's images, as documented above. I have personally reviewed the patient's labs, as listed above. SUBJECTIVE: Chief Complaint/Reason for Consult: Headache; Vision changes; Informant(s): Patient History of Present Illness: Veronica Sams is a 28 y.o. female with past medical history of no medical issues, currently at 31 weeks , here with a headache and vision changes. She provided her own history. Neurology consulted for evaluation. She reported a headache for the past one (1) week or so. The pain is located near the vertex with some radiation to the sides. This was associated with moving spots in the eyes one day while she was working at her computer. She denied any history of gross vision loss. She denied any pain with eye movements. No recent history of trauma. Denied any history of clots or miscarriages. Per review of the notes, she was recently diagnosed with gHTN with a BP 142/80. She has not been hypertensive since admission. She has tried treating this headache with Tylenol at home, but this did not provide significant improvement. Review of Systems: All systems reviewed and negative except pertinent positives and negatives documented in the History of Present Illness (HPI). History: Past Medical History: Diagnosis Date Arthritis Gestational hypertension, third trimester 12/08/2018 Past Surgical History: Procedure Laterality Date ANKLE FRACTURE SURGERY 2 surgerys Social History Socioeconomic History Marital status: Spouse name: Not on file Number of children: Not on file Years of education: Not on file Highest education level: Not on file Occupational History Not on file Social Needs Financial resource strain: Not on file Food insecurity: Worry: Not on file Inability: Not on file Transportation needs: Medical: Not on file Non-medical: Not on file Tobacco Use Smoking status: Never Smoker Smokeless tobacco: Never Used Substance and Sexual Activity Alcohol use: Yes Alcohol/week: 0.0 standard drinks Comment: occ Drug use: No Sexual activity: Yes Partners: Male control/protection: Condom Lifestyle Physical activity: Days per week: Not on file Minutes per session: Not on file Stress: Not on file Relationships Social connections: Talks on phone: Not on file Gets together: Not on file Attends christianity service: Not on file Active member of club or organization: Not on file Attends meetings of clubs or organizations: Not on file Relationship status: Not on file Other Topics Concern Not on file Social History Narrative Not on file Family History Problem Relation Age of Onset Diabetes Father Cancer Maternal Grandmother Breast cancer Maternal Grandmother Cancer Paternal Grandmother Colon cancer Paternal Grandfather Ovarian cancer Neg Hx Uterine cancer Neg Hx Additional History Comments: None Allergies: Patient has no known allergies. HOME Medications: Prior to Admission medications Medication Sig Start Date End Date Taking? Authorizing Provider predniSONE (DELTASONE) 10 MG tablet 4 tabs qd x 3 days then 3 tabs qd x 3 days then 2 tabs qd for 3 days then 1 tab qd for 3 days then stop.. 06/16/17 Wilfred Nolasco DO HOSPITAL Infusions: sodium chloride 0.9 % 125 mL/hr (12/09/18 0612) HOSPITAL Scheduled Medications: famotidine 20 mg Oral Nightly ferrous sulfate 325 mg Oral Daily with breakfast vitamin with Ca-Iron-FA 1 tablet Oral Daily sodium chloride (PF) 5 mL Intravenous Q8H [facility] PRN Medications: acetaminophen, lidocaine 1%, Saline lock IV AND sodium chloride (PF) AND sodium chloride (PF) AND sodium chloride 0.9 % OBJECTIVE: Physical Examination: BP 119/60 (BP Location: Right arm, Patient Position: Sitting) Pulse 87 Temp 97.7 F (36.5 C) (Oral) Resp 18 Ht 5' 7 Wt 93.4 kg (206 lb) SpO2 100% BMI 32.26 kg/m GUZMÁN: DNFC: Does Not Follow Commands JULIANE: Unable to Assess GENERAL: General Appearance: In NAD Eyes: See pupils below Ears: See hearing below Neck: Supple Respiratory Effort: Normal Extremities: No edema Skin: No rashes visualized Fundi Exam: Pupils 2 mm OU and difficult to see MENTAL STATUS: Alertness, Attention Span & Concentration: Normal Language: Normal Speech: Normal Orientation: Normal Memory, Recent & Remote: Normal Fund of Knowledge: Normal CRANIAL NERVES: II - Visual Munoz: Normal II, III - Pupils: PERRL III, IV, - Eye Movements: Normal (EOMI, no ptosis, no nystagmus) V - Facial Sensation: Normal VII - Face Symmetry and Strength: Normal VIII - Hearing: Normal IX, X - Palate: Normal XI - Shoulder Shrug: Normal XII - Tongue Protrusion: Normal COORDINATION & GROSS MOTOR: Abnormal Movements: None Coordination Uqepjb-mg-Qlar: Normal Coordination: Fxjt-Gumm-Nmup:Normal Rapid Alternating Movements: Normal Drift: None Tone: Normal Bulk: Normal MOTOR - MUSCLE STRENGTH: Muscle Strength Right Left 5 Shoulder Abduction (Deltoid) 5 5 Elbow Flexion (Biceps) 5 5 Elbow Extension (Triceps) 5 5 Finger Abduction (Interossei) 5 5 Hip Flexion (Iliopsoas) 5 5 Knee Extension (Quads) 5 5 Knee Flexion (Hamstrings) 5 5 Dorsiflexion (Anterior Tibialis) 5 MOTOR GUZMNÁ: 5 Normal (Normal Power) 4 Mild Weakness (Movement against moderate resistance over a full range of motion) 3 Moderate Weakness (Movement against gravity over almost full range of motion) 2 Severe Weakness (Movement with gravity eliminated over almost full range of motion) 1 Trace Movement (flicker of contraction visible or palpable) 0 No Movement (No contraction visible or palpable) JULIANE Unable to Assess REFLEXES: Right Reflexes Left 1+ Biceps 1+ 1+ Triceps 1+ 1+ Brachioradialis 1+ 1+ Patellar 1+ 1+ Achilles 1+ Down Plantar Response (Babinski) Down REFLEXES GUZMÁN: 4+ Sustained Clonus 3+ Brisk 2+ Normal 1+ Diminished 0 Absent JULIANE Unable to Assess SENSATION: Fine Touch: Normal documented in this encounter Quick Note - Kristal Collazo MD - 12/10/2018 2:31 PM EDTSign Off Note - Lyssa Elena CNP - 12/10/2018 1:22 PM EDTQuick Note - Yesenia Mora MD - 12/09/2018 8:28 PM EDT Miscellaneous Notes (unrecog nized section and content) At beside to check on patient. Feeling well with only a mild headache that she has had off and on since admission. Headache is relieved with rest, heat and headache cocktail (zofran and benadryl). Neurology officially signed off with no further recommendations at this time. Patient comfortable going home with follow up Wednesday w/ Dr. Bansal. RX for zofran provided. D/w Dr. Yesenia Collazo MD SYSTEMS PROGRAM MANAGER, PGY2 Pager: [phone] 12/10/18 2:33 PM Neurology Sign-Off Diagnosis: Headache and vision changes Chiari malformation Tests Pending: None Discharge Medications & Treatments: None Additional Recommendations: None Follow-up Testing (After Discharge): None Follow-up Appointment: No neurology outpatient follow-up recommended at this time Recall: Non-Urgent Questions or Reconsultation ([facility]): Call Neurology palm and back forger [phone] Urgent Questions: Use [facility] On-call Directory to contact Physician Associated Problem(s): Gestational hypertension Veronica Oneill is a 28 yo with gestational hypertension at 31w3d with headaches and visual changes. Blood pressures are currently wnl and HELLP labs normal. Will monitor Blood pressures and symptoms. Gestational Hypertension, r/o Pre-eclampsia No home BP medications. Well controlled at home. Normotensive BPs overnight. Continues to report BROWN and RUQ pain. RUQ US 12/09: no evidence of cholelithiasis or choledocholithiasis See below for neuro consult PO pepcid ordered for acid reflux. Labs: HELLP labs nrml 12/08 HELLP labs nrml 12/09 x2 (AM and PM, repeated for persistent BROWN and RUQ pain) 24 hour urine protein 12/09: 200mg HELLP labs 12/10 AM pending Visual Changes with severe BROWN Persistent visual changes, not relieved by rest, Tylenol, Fioricet CT head non-con (12/09): No acute changes, possible arnold chiari I malformation. Neurology following, appreciate recs MR/MRV (12/09): Negative for acute infarct. Chiari 1 malformation. Significant crowding at the level of the foramen magnum Symptomatic BROWN treatment: BROWN cocktail with IV zofran and IV benadryl has been most effective. FWB ? Monitoring: TID EFM/toco ? BSUS 12/08: vtx, 2021g (86%), 13.5 KENAN Diet: Regular DVT ppx: SCDs Dispo: Inpatient for workup with visual changes and persistent BROWN Subjective: Called to patient's room for worsening headaches and RUQ pain. Patient states that her headache had improved with the headache cocktail this morning but slowly got worse this afternoon and into the evening following her MRI scan. She describes this as a different headache than before, with the pain starting in her neck and shooting up her head to the back of her eyes. She also felt dizzy and started having visual changes again. She complains of seeing stars in her vision as well as blurry vision occasionally. She rated the pain as 8/10. Her RUQ pain had also improved but now has worsened as well. The pain is intermittent and is not exacerbated by meals. Reports good movement and no other symptoms at this time. Objective Temp: [97.7 F (36.5 C)-98.6 F (37 C)] 98.6 F (37 C) Heart Rate: [67-87] 86 Resp: [16-18] 16 BP: (108-130)/(54-67) 117/61 General appearance. Patient is comfortable and resting in bed Abdominal exam: Soft, tender to palpation in RUQ. No rebound or guarding. A/P - Hemodynamically stable and normotensive. - repeat HELLP labs in the morning - RUQ US ordered for persistent RUQ pain - Ordered one time repeat headache cocktail- felix victorl. D/w Dr. Roper (Senior resident), Dr. Patterson (regional engineer attending) [facility] Utilization Review Notes EMERGENCY TEMPLATE HISTORY OF PRESENT ILLNESS:28 y.o. with gestational HTN at 31w1d presenting as a direct admit from Dr. Bansal and complaining of headaches and visual changes. She was recently diagnosed with gHTN in the clinic due to BP of 142/80s and 130s/90s. She has been monitoring her BP at home and reports the highest BP as 131/88. She had a 24 hour protein in office which was 220mg. For the last week, she started having a diffuse headache. She has tried tylenol with minimal relief. She denies any previous history of headaches. She has also had some visual changes. She describes seeing spots in her vision, occasionally. She reports that this occurs even at rest. She also reports baseline SOB, ongoing for last 2-3 weeks. She has also had some burning epigastric pain/RUQ pain, which feels like reflux. She has tried TUMS which helps, but she sometimes gets nauseous with the reflux and isn't able to take the PO TUMS. Has not tried pepcid. Neuro consult. VITAL SIGNS: 12/08- 98.6 (37) 80 16 117/73 100 % RA 12/09 98.6 (37) 75 16 113/67 99 % RA EKG: NOC WEIGHT:93.4 kg LABS: (Abnormal / Relevant): 12/08- BUN-7, RBCs-3.72 12/09- Glucose-107, WBC-11.49, RBCs-3.76, BUN-7 IMAGING: (Abnormal / Relevant): CT Head: No acute abnormality; possible Arnold-Chiari I malformation. Await MRI Brain ED TX:12/08- no IV's 12/09 IV Benadryl 25 mg x 1, IV Zofran 8 mg x 1, IV 0.9%NS 150 ml/hr as needed DX:Gestational Hypertension, r/o Pre-eclampsia Visual Changes FWB ASSESSMENT / PLAN: Gestational Hypertension, r/o Pre-eclampsia Not on any home BP medications. Well controlled at home. Normotensive with no mild range pressures today. Ordered PRN tylenol for headache pain relief. Ordered PO pepcid for acid reflux. Will re-evaluate epigastric/ RUQ pain following trial of antacids. HELLP labs ordered 12/08- normal. 24 hour urine collection started 12/08 Visual Changes Persistent visual changes, not relieved by rest or other factors. Ordered head CT without contrast, after discussion with radiology. FWB ? Monitoring: TID EFM/toco ? BSUS 12/08: vtx, 2021g (86%), 13.5 KENAN MEDS / ORDERS::12/08- no IV's 12/09 IV Benadryl 25 mg x 1, IV Zofran 8 mg x 1, IV 0.9%NS 150 ml/hr as needed DISPO: TBD 12/09 Neuro consult: ASSESSMENT: 28 y.o. female with history of no past history, currently 31 weeks , presented to [facility] on 12/08/2018 with headache and vision changes. Neurologic exam is non-focal. CT head is non-acute. She is currently under evaluation for pre-eclampsia. Etiology seems most consistent with episodic migraine, but will rule out PRES and CVT, given her current status and symptoms. PLAN: Headache and vision changes Testing: MRI Head, MRV Head Treatment: Continue symptomatic therapy, per OB Further recommendations to follow imaging 24-hour urine pending Answered questions and rediscussed plan at length with Patient. Covering neurologist: Dr. Keita. Discussed plan with other teams' providers, specifically OB (Dr. Bansal). CT images independently reviewed by me and summarized in Resulted Testing section. Subjective Called to see patient for RUQ pain. Patient reports abdominal tightness. Pain was not brought on by eating. She reports a 4/10 headache. Tylenol and fioricet earlier today improved her headache, but headache did not completely resolve. She denies vision changes. Otherwise asymptomatic. Objective Blood pressure (!) 108/54, pulse 69, temperature 98.4 F (36.9 C), temperature source Oral, resp. rate 18, SpO2 97 %, not currently . General appearance- Patient appears comfortable, resting in bed Abdomen- Tenderness to palpation in RUQ Extremities: 2+ patellar reflexes bilaterally. No hyper-reflexia or clonus. FHT: 130 / mod hermilo / + accel / no decels [place]: quiet A/P STAT HELLP labs pending. Repeat fioricet ordered. Continue to monitor patient. D/w Dr. Roche (on-call attending) documented in this encounter Pt released This note was copied from a baby's chart. Mom states he will not latch but taking what I pump very well. Mom reports pumping 25-30mls every 2-3 hrs. Assisted with positioning and latch with several attempts. Gave mom the plan of: -Low guzmán attempts at the breast when baby cues. -If baby does not latch with active sucking and swallowing ending in infant satiety, or if baby is offered a supplement, Mom is to pump/hand express and feed EBM with formula as needed, at least 8-12x/24hrs. -Discussed tummy size and appropriate volume for feeds based on baby's age. Discussed when to give formula. -Encouraged skin to skin time -Keep a diaper diary -Reviewed section in A Guide To Caring For Yourself and Your Baby and the Temporary Breastpumping handout. Recommended early entry level business analyst appointment for weight check. Instructed to follow up with out patient services on Wednesday. This note was copied from a baby's chart. Assisted mom with positioning and attachment techniques. No latch achieved. Gave mom the plan of: -Low guzmán attempts at the breast when baby cues. -If baby does not latch with active sucking and swallowing ending in satiety, or if baby is offered a supplement, Mom is to pump/hand express and feed EBM with formula as needed, at least 8-12x/24hrs. -Discussed tummy size and appropriate volume for feeds based on baby's age. Reviewed Safe Formula Handout with parents. -Encouraged skin to skin time -Keep a diaper diary -Reviewed section in A Guide To Caring For Yourself and Your Baby and the Temporary Breastpumping handout. Will follow-up prior to discharge. LC rounded on mom. Mom requests consult, informed her that she will be contacted later to schedule an appointment. Courtesy card given with list of outpatient resources and helpline number. Safe formula preparation and tummy size handouts given. Patient and family oriented to room and call light. Admission packet discussed and proof of completed and given to parents. Discussed safety, diet, medication, rounding, baby supplies, and plan of care. Vitals stable and fundus firm. Patient given menu and instructed on how to order food. No other needs at this time. OPERATIVE NOTE Date of Service: 01/31/2019 Surgeon(s):Surgeon(s) and Role: * Fred Bansal DO - Primary * Lila Colorado MD - Resident - Assisting Anesthesia Staff: Anesthesiologist: Magen Vance MD HEEL ATTACHER WOOD: Romi Contreras CRNA OR Staff: Corporate Tax Manager: Rosendo Nino RN Flamer After Lasting: [facility] Nursery Nurse: Rachana Smith RN; Giovanna Estrada RN Pre-Operative Diagnoses: Term IUP, GHTN, Arnold Chiari malformation Post-Operative Diagnoses: same Procedure(s) performed: Primary Low Transverse Section Operative findings: anterior intramural/subseroal 4 cm fibroid, nml tubes and ovaries. VMI in vtx presentation Viable MALE APGARS One minute Five minutes Ten minutes Fifteen minutes Twenty minutes Skin color: 0 1 Heart rate: 2 2 Grimace: 2 2 Muscle tone: 2 2 Breathin 2 Totals: 8 9 Estimated Blood Loss: 650 Type of Anesthesia used: spinal Intra and Immediate Post-op Complications: None Indications: Veronica Sams is a 28 y.o. at 38w6d who has GHTN and recently diagnosed rnold Chiari malformation. Neurosurgery recommended against pushing for long periods of time so pt and I discussed risks and benefits of IOL vs LTCS and pt elected for LTCS to avoid pushing at all.. She was counseled on the risks, benefits and alternatives to the procedure. Procedure in detail: The patient was taken to the operating room where spinal anesthesia was found to be adequate. She was then prepped and draped in the dorsal supine position with a left tilt. After a time out, a pfannenstiel skin incision was made with a scalpel and carried through to the underlying layer of fascia. The fascia was extended laterally with finley scissors. The fascia was dissected off the muscles both cranially and caudally. The rectus muscles were in the midline and the peritoneum was entered sharply. The peritoneal incision was extended superiorly and inferiorly with metzenbaum scissors with good visualization of the bladder. A bladder blade was inserted. The vesicouterine peritoneum was incised and a bladder flap was created. A low transverse incision was made on the uterus with a scalpel. Membranes were ruptured for clear fluid. was noted to be in cephalic presentation. The infant was delivered atraumatically. Cord was clamped and cut at 60 seconds and the was taken to the nursery staff. Cord gases were collected. The placenta was delivered by manual extraction. The uterus was cleared of all clot and debris. The uterus was closed with 1-vicryl in a running locked fashion. Several figure of * sutures were used to render it hemostatic. The bilateral adnexa were examined and appeared normal. The abdomen was irrigated and again hemostasis confirmed. The peritoneum was closed with 3-0 vicryl. The subfascial tissue was examined and was noted to be hemostatic. The fascia was then closed with 0-looped PDS in a running fashion, securing each angle and tying near the midline. The subcutaneous tissue was irrigated and made hemostatic with cautery as needed. The subcutaneous tissue was closed with several interrupted 3-0 vicryl. The skin was closed in a subcuticular fashion with 4-0 vicryl. The patient tolerated the procedure well. Sponge lap and needle counts were correct times two. She was taken to the recovery room in stable condition. Dispo: Pt to PACU in stable condition. Fred Bansal DO 01/31/2019 2:15 PM CSN: [id number] Section Delivery Note Diagnosis: Active Problems: Gestational hypertension Aimee Sams [[id number]] Delivery Anesthesia Method: Spinal Operative Delivery No data filed Presentation Presentation: Vertex _: Occiput _: Anterior [place] Information date/time: 01/31/19 1327 Gender: Male Delivery type: , Low Transverse Delivery location: In facility - Outside OB Unit Initial disposition: Routine NB Care Details: Delivery Providers Delivering clinician: Fred Bansal DO Other personnel: Provider Role Covering Attending Lila Colorado MD Resident Machine Operator Cane Cutter Delivery Nurse Registered Nurse Delivery Assist Nurse Practitioner Cord Vessels: 3 vessels Complications: None Cord blood obtained?: Refrigerator Cord segment obtained?: Yes Gases sent?: Yes Placenta No data filed Apgars Living status: Living Scoring Guzmán: 0 1 2 Skin color Blue or pale Acrocyanotic Completely pink Heart rate Absent <100 bpm >100 bpm Reflex irritability No response Grimace Cry or active withdrawal Muscle tone Limp Some flexion Active motion Respiratory effort Absent Weak cry; hypoventilation Good, crying Skin color: Heart rate: Reflex irritability: Muscle tone: Respiratory effort: Total: 1 Minute: 0 2 2 2 2 8 5 Minute: 1 2 2 2 2 9 10 Minute: 15 Minute: 20 Minute: Apgars assigned by: CHRIS FLORES [place] Measurements Weight: 7 lb (3175 g) Length: 20.5 Head Circumference: 14 Lacerations No data filed Other Procedures No data filed Brief Post Operative Note Patient Name: Veronica Sams : 1990 (28 y.o.) Date of Service: 01/31/2019 CSN: [id number] Procedure(s): SECTION Pre-Operative Diagnoses: * Primary = gentle, GHTN 02/08, , 38+6 Post-Operative Diagnoses: same Surgeon(s) and Role: * Fred Bansal DO - Primary * Lila Colorado MD - Resident - Assisting Anesthesiologist: Magen Vance MD HEEL ATTACHER WOOD: Romi Contreras CRNA Corporate Tax Manager: Rosendo Nino RN Flamer After Lasting: [facility] Nursery Nurse: Rachana Smith RN; Giovanna Estrada RN Operative findings: VMI. Clear fluid. Placenta with 3VC. Uterus with 3 cm mid anterior fibroid. Normal appearing bilateral tubes, ovaries and appendix. See full operative note for more details. Intra and immediate post-operative complications: none Type of anesthesia used: Spinal Estimated blood loss: 650 mL Estimated urine output: 50 mL Specimen(s): * No specimens in log * Implant(s): * No implants in log * Drain(s): Urethral Catheter Double-lumen;Non-latex (Active) Wound(s): * No LDAs found * Lila Colorado MD 01/31/2019 2:07 PM documented in this encounter Care Teams (unrecognized sec tion and content) Computer Publisher Relationship Specialty Start Date End Date Ivania Atwood MD [address] [place] [address] PCP - General Family Medicine 02/19/22 Fred Bansal DO [address] [place] [address] Consulting Physician Obstetrics/Gynecology 03/31/22 Computer Publisher Relationship Specialty Start Date End Date Ivania Atwood MD [address] [place] [address] PCP - General Family Medicine 02/19/22 Fred Bansal DO [address] [facility] [address] Consulting Physician Obstetrics/Gynecology 03/31/22 Computer Publisher Relationship Specialty Start Date End Date Ivania Atwood MD [address] [place] [address] PCP - General Family Medicine 02/19/22 Fred Bansal DO [address] [facility] [place] [address] Consulting Physician Obstetrics/Gynecology 03/31/22 Computer Publisher Relationship Specialty Start Date End Date Sherri Reynoso MD [address] [facility] [place] [address] PCP - General Family Medicine 02/11/23 Scheduled Active and Recently Administ ered Medications (unrecognized section and content) Continuous Medication Order 04/13/2022 04/14/2022 04/15/2022 lactated Ringers infusion (CANCELED) 125 mL/hr, Intravenous, Continuous, Starting on Wed04/13/22 at 1230, Labor & Delivery 1344 (New Bag - Provider: Nessa Schmitt MD)1414 (Stopped - Provider: Romi Contreras CRNA) lactated Ringers infusion 125 mL/hr, Intravenous, Continuous, Starting on Wed04/13/22 at 1900, L&D Post-Delivery, Start when oxyTOCIN (PITOCIN) drip is discontinued. Discontinue after 24 hours if patient is afebrile and tolerating orals. 2142 (New Bag - Provider: Lori West RN) PRN Medication Order 04/13/2022 04/14/2022 04/15/2022 acetaminophen (TYLENOL) tablet 650 mg 650 mg, Oral, Every 4 hours PRN, mild pain, fever 100.4 F or greater, headaches, Starting on Wed04/14/22 at 0744, , For mild pain, use PRN ibuprofen first, if currently active and within dose-timing guidelines. If patient is receiving SCHEDULED ketorolac or ibuprofen, acetaminophen may be given PRN for breakthrough mild pain. Acetaminophen may also be used as ordered FOR HEADACHE OR FEVER concurrently with ibuprofen or ketorolac. 1412 (Given - Provider: Keely Matthews RN) aluminum-magnesium hydroxide-simethicone (MAALOX PLUS) 200-200-20 mg/5 mL suspension 30 mL 30 mL, Oral, Every 4 hours PRN, indigestion, Starting on Wed04/13/22 at 1807, bisacodyL (DULCOLAX) suppository 10 mg 10 mg, Rectal, Daily PRN, constipation, Starting on Wed04/13/22 at 1807, , Use oral medication first for constipation. Use rectal suppository, if ordered, for constipation if oral route not tolerated. diphenhydrAMINE (BENADRYL) injection 25 mg(Linked Group 1) 25 mg, Intravenous, Every 6 hours PRN, itching, Starting on Wed04/13/22 at 1807, , Use oral route first, if tolerated. For IV administration, give at a rate less than or equal to 25 mg/min diphenhydrAMINE (BENADRYL) tablet 25 mg(Linked Group 1) 25 mg, Oral, Every 6 hours PRN, itching, Starting on Wed04/13/22 at 1807, , Use oral route first, if tolerated. diptheria, tetanus toxoid, acellular pertusssis (ADACEL) injection 0.5 mL 0.5 mL, Intramuscular, Prior To Discharge, Based on vaccine assessment, Starting on Wed04/13/22 at 1807, For 1 dose, , If not previously vaccinated for pertussis. Complete Vaccine Assessments. If indicated, administer prior to discharge. Provide CDC vaccine information sheet(s) (VIS) for patient for vaccines administered. Tip cap contains LATEX. Use caution when handling if you have a latex allergy. Okay to administer to patient with latex allergy docusate sodium (COLACE) capsule 100 mg 100 mg, Oral, 2 times daily PRN, constipation, Starting on Wed04/13/22 at 1807, , Use oral medication first for constipation. Use rectal suppository, if ordered, for constipation if oral route not tolerated. DO NOT CRUSH OR CHEW. 0905 (Given - Provider: Keely Matthews, SANDRA) flu vacc [id number] 6mos up(PF) (FLUZONE QUAD/FLULAVAL QUAD/FLUARIX QUAD) syringe Syrg 0.5 mL (COMPLETED) 0.5 mL, Intramuscular, Prior To Discharge, administer vaccine prior to discharge, ., Starting on Wed04/13/22 at 1216, For 1 dose 1748 (Given - Provider: Keely Matthews, SANDRA) HYDROmorphone (DILAUDID) injection 0.5 mg 0.5 mg, Intravenous, Once as needed, Pain Associated with Hemorrhage Management., Starting on Wed04/13/22 at 1807, For 1 dose, ibuprofen (ADVIL,MOTRIN) tablet 600 mg 600 mg, Oral, Every 6 hours PRN, headaches, mild pain or swelling, Starting on Wed04/15/22 at 1448, , Do not give less than 6 hours after previous dose of ibuprofen or ketorolac. Do Not Crush or Chew if administering orally due to bitter taste. May be crushed if given via tube. lactated ringers bolus 2,000 mL (COMPLETED) 2,000 mL, Intravenous, Administer over 61 Minutes, Once as needed, IF patient is a candidate for Spinal anesthesia, Starting on Wed04/13/22 at 1139, For 1 dose, Labor & Delivery, Infuse prior to initiation of Spinal anesthesia. 1256 (Given - Provider: Palma Salazar RN) measles, mumps and rubella vaccine (MMR) 1,000-12,500 TCID50/0.5 mL injection 0.5 mL 0.5 mL, Subcutaneous, Prior To Discharge, administer vaccine prior to discharge, Based on vaccine assessment, Starting on Wed04/13/22 at 1807, For 1 dose, , If indicated and not previously vaccinated. Complete Vaccine Assessments. If indicated, administer prior to discharge. Provide CDC vaccine information sheet(s) (VIS) for patient for vaccines administered. nalbuphine (NUBAIN) injection 2.5 mg () 2.5 mg, Intravenous, Every 6 hours PRN, For itching while Neuraxial Orders in effect., Starting on Wed04/13/22 at 1344, For 18 hours, Sign and Release 1510 (Given - Provider: Sherry Duggan Do, RN) naloxone (NARCAN) injection 0.1 mg(Linked Group 2) 0.1 mg, Intravenous, As needed, opioid reversal, For respiratory rate less than or equal to 8 per minute., Starting on Wed04/13/22 at 1807, , Mix nalOXone (NARCAN) 0.4 mg (1mL) with 9 mL of Normal Saline to total 10 mL. Administer 0.1 mg (2.5mL) IV Push every 2 minutes until respiratory rate is 10 or greater. naloxone (NARCAN) injection 0.4 mg(Linked Group 2) 0.4 mg, Intravenous, As needed, opioid reversal, patient is pulseless, breathless, and unresponsive, Starting on Wed04/13/22 at 1807, , Call a code first, then administer naloxone dose undiluted IV Push over 30 seconds. ondansetron (ZOFRAN) injection 4 mg(Linked Group 3) 4 mg, Intravenous, Every 6 hours PRN, nausea, vomiting, Starting on Wed04/14/22 at 0744, , Use oral route first, if tolerated. ondansetron (ZOFRAN-ODT) disintegrating tablet 4 mg(Linked Group 3) 4 mg, Oral, Every 6 hours PRN, nausea, vomiting, Starting on Wed04/14/22 at 0744, , Use oral route first, if tolerated. Formulation requires tablet remain in sealed package until immediately prior to dose being administered. oxyCODONE (ROXICODONE) immediate release tablet 5-10 mg 5-10 mg, Oral, Every 4 hours PRN (may repeat), moderate to severe pain, (breakthrough following neuraxial analgesia), Starting on Wed04/13/22 at 1344, For 18 hours, Sign and Release, For breakthrough moderate to severe pain, use oral route first, if tolerated. Initiate with 5mg oral every 4 hours as needed for moderate to severe breakthrough pain. If pain unrelieved after 60 minutes, may repeat 5 mg oral dose. If pain is RELIEVED after repeat dose, change to 10 mg PO every 4 hours PRN pain. If pain is UNrelieved, transition to IV therapy. For 18 hours after NEURAXIAL administration. Discontinue Neuraxial Analgesia Physician Medication Orders and initiate surgeon's post operative pain orders 18 hours after neuraxial opioid dose. oxyCODONE (ROXICODONE) immediate release tablet 5-10 mg 5-10 mg, Oral, Every 4 hours PRN, moderate to severe pain, Starting on Wed04/14/22 at 0744, , [] Initiate with 5 mg oral every 4 hours prn moderate to severe pain. [] For unrelieved pain, may repeat 5 mg oral dose within 60 minutes of initial dose. [] If pain is RELIEVED after repeat dose, change to 10 mg oral every 4 hours prn moderate to severe pain. [] If pain is UNrelieved after repeat dose, or patient requires dose reduction, call physician. 1535 (Given - Provider: Keely Matthews, RN)2040 (Given - Provider: Lori West RN) rho(d) immune globulin (RHOPHYLAC) injection 300 mcg(Linked Group 4) 300 mcg, Intramuscular, Once as needed, IF patient is Rh Negative - administer if indicated (per lab), Starting on Wed04/13/22 at 1807, For 1 dose, , Use IV route, if available. rho(d) immune globulin (RHOPHYLAC) injection 300 mcg(Linked Group 4) 300 mcg, Intravenous, Once as needed, IF patient is Rh Negative - administer if indicated (per lab), Starting on Wed04/13/22 at 1807, For 1 dose, , Use IV route, if available. Do not give with other IV medications. simethicone (MYLICON) chewable tablet 80 mg 80 mg, Oral, After meals as needed, flatulence, Starting on Wed04/13/22 at 1807, sodium chloride 0.9% (NS) 0-150 mL/hr, Intravenous, As needed, To flush line after IV infusions when no maintenance IV ordered or a compatibility issue. Infuse 20mL at the same rate as the secondary infusion, Starting on Wed04/13/22 at 1807, L&D Post-Delivery, Run as Primary IV. NOT intended for KVO. varicella virus vacc live (PF) (VARIVAX) injection 0.5 mL 0.5 mL, Subcutaneous, Prior To Discharge, administer vaccine prior to discharge, Based on vaccine assessment, Starting on Wed04/13/22 at 1807, For 1 dose, , If not previously vaccinated. Complete Vaccine Assessments. If indicated, administer prior to discharge. Provide [facility] vaccine information sheet(s) (VIS) for patient for vaccines administered. Linked Groups Order Group 1: diphenhydrAMINE (BENADRYL) tablet 25 mgJump to med 25 mg, Oral, Every 6 hours PRN, itching, Starting on Wed04/13/22 at 1807,
Use oral route first, if tolerated.
Or diphenhydrAMINE (BENADRYL) injection 25 mgJump to med 25 mg, Intravenous, Every 6 hours PRN, itching, Starting on Wed04/13/22 at 1807,
Use oral route first, if tolerated. For IV administration, give at a rate less than or equal to 25 mg/min
Group 2: naloxone (NARCAN) injection 0.1 mgJump to med 0.1 mg, Intravenous, As needed, opioid reversal, For respiratory rate less than or equal to 8 per minute., Starting on Wed04/13/22 at 1807,
Mix nalOXone (NARCAN) 0.4 mg (1mL) with 9 mL of Normal Saline to total 10 mL. Administer 0.1 mg (2.5mL) IV Push every 2 minutes until respiratory rate is 10 or greater.
And Notify physician (CANCELED) STAT, Until discontinued, Starting on Wed04/13/22 at 1808, Until Specified
Respiratory rate less than: 8
For respiratory rate less than or equal to 8, notify physician and/or appropriate staff for additional orders., And naloxone (NARCAN) injection 0.4 mgJump to med 0.4 mg, Intravenous, As needed, opioid reversal, patient is pulseless, breathless, and unresponsive, Starting on Wed04/13/22 at 1807,
Call a code first, then administer naloxone dose undiluted IV Push over 30 seconds.
Group 3: ondansetron (ZOFRAN-ODT) disintegrating tablet 4 mgJump to med 4 mg, Oral, Every 6 hours PRN, nausea, vomiting, Starting on Wed04/14/22 at 0744,
Use oral route first, if tolerated. Formulation requires tablet remain in sealed package until immediately prior to dose being administered.
Or ondansetron (ZOFRAN) injection 4 mgJump to med 4 mg, Intravenous, Every 6 hours PRN, nausea, vomiting, Starting on Tu04/14/22 at 0744,
Use oral route first, if tolerated.
Group 4: rho(d) immune globulin (RHOPHYLAC) injection 300 mcgJump to med 300 mcg, Intramuscular, Once as needed, IF patient is Rh Negative - administer if indicated (per lab), Starting on Wed04/13/22 at 1807, For 1 dose,
Use IV route, if available.
Or rho(d) immune globulin (RHOPHYLAC) injection 300 mcgJump to med 300 mcg, Intravenous, Once as needed, IF patient is Rh Negative - administer if indicated (per lab), Starting on Wed04/13/22 at 1807, For 1 dose,
Use IV route, if available. Do not give with other IV medications.
FOR RECORDS PERTAINING TO PATIENTS WHO ARE OR HAVE BEEN ENROLLED IN A CHEMICAL DEPENDENCY/SUBSTANCEABUSE PROGRAM, SOME INFORMATION MAY BE OMITTED. This clinical summary was aggregated from multiple sources. Caution should be exercised in using it in the provision of clinical care. This summary normalizes information from multiple sources, and as a consequence, information in this document may materially change the coding, format and clinical context of patient data. In addition, data may be omitted in some cases. CLINICAL DECISIONS SHOULD BE BASED ON THE PRIMARY CLINICAL RECORDS. [facility]. provides no warranty or guarantee of the accuracy or [phone] in [phone] [id number]
[2023-06-17 11:02] LABS: Thyroid Stim Hormone (TSH) 0.97 uIU/mL (0.358-3.74); Vitamin D,25 Hydroxy 31.2 ng/mL
== END | disposition home or self-care (01) ==
PROVIDERS: Family Medicine; PCP Family Medicine; Visit Provider Family Medicine
DX: E55.9 Vitamin D deficiency, unspecified (principal); E03.9 Hypothyroidism, unspecified
CPT/HCPCS: 36415; 82306; 84443

== ENCOUNTER → 2023-07-20 | Outpatient (CLI) | payer OTHER, SELFPAY ==
[2023-07-20 17:54] LABS: Free T3 2.2 pg/mL (2.18-3.98); T4 Free Direct 1.39 ng/dL (0.76-1.46); Thyroid Stim Hormone (TSH) 0.76 uIU/mL (0.358-3.74)
--- OUTSIDE RECORDS SUMMARY | 2023-07-20 18:59 | XMS RPT_ITS | CCD ---
Author Name Unknown Address [address] [place] [address] Organization [facility] Care Team Providers Care Note Specialist Name Role Phone Wilfred Nolasco Unavailable WILFRED NOLASCO Unavailable UnavailMARIE Palmer Unavailable Unavailable Unavailable Primary Care Provider UnavailWilfred Sherman Primary Care Provider PIERRE, ELICEO JOSH Admitting Unavailab le PIERRE, ELICEO JOSH Referring Unavailab WILFRED Beth Primary Care Unavailabl e PIERRE, ELICEO JOSH Attending Unavailab Ivania Sheppard MD Primary Care Provider NimishaFred duggan DO Unavailable Ivania Atwood MD Primary Care Provider Fred Bansal DO Unavailable IVANIA ATWOOD Primary Care Unavailable SICKJIMMY, IVANIA Attending Unavailable SICKJIMMY, IVANIA Primary Care Unavailable ANDREIA GAYTAN Attending Unava ilable SICKIVANAI MARQUEZ Primary Care Unavailable SICKJIMMY, IVANIA Attending Unavailable [...] sources) nickel; Translations: [NICKEL] Drug Allergy 12-09-2018 [facility] Medications Current Medications Medication Drug Class(es) [...] conjunction with the immunization order to satisfy [place] Board of Pharmacy Positive ID requirements for [...] 168.9 cm Sherri Reynoso MD Work Phone: [facility] 02-11-2023 14:01-0400 Body mass index (BMI) [Ratio] 28.71 kg/m2 Sherri Reynoso MD Work Phone: [facility] 02-11-2023 14:01-0400 Body temperature 98.6 [degF] Sherri Reynoso MD Work Phone: [facility] 02-11-2023 14:01-0400 Body weight 81.92 kg Sherri Reynoso MD Work Phone: [facility] 02-11-2023 14:01-0400 Diastolic blood pressure 69 mm[Hg] Sherri Reynoso MD Work Phone: [facility] 02-11-2023 14:01-0400 Heart rate 86 /min Sherri Reynoso MD Work Phone: [facility] 02-11-2023 14:01-0400 SaO2% (BldA) [Mass fraction] 94 % Sherri Reynoso MD Work Phone: [facility] 02-11-2023 14:01-0400 Systolic blood pressure 117 mm[Hg] Sherri Reynoso MD Work Phone: [facility] 10-13-2022 11:11-0400 Body height 170.2 cm Andreia Gaytan LATHE OPERATOR Work Phone: [facility] 10-13-2022 11:11-0400 Body mass index (BMI) [Ratio] 27.53 kg/m2 Andreia Gaytan LATHE OPERATOR Work Phone: [facility] 10-13-2022 11:11-0400 Body temperature 97.81 [degF] Andreia Gaytan LATHE OPERATOR Work Phone: [facility] 10-13-2022 11:11-0400 Body weight 79.74 kg Andreia Gaytan LATHE OPERATOR Work Phone: [facility] 10-13-2022 11:11-0400 Diastolic blood pressure 69 mm[Hg] Andreia Gaytan LATHE OPERATOR Work Phone: [facility] 10-13-2022 11:11-0400 Heart rate 79 /min Andreia Gaytan LATHE OPERATOR Work Phone: [facility] 10-13-2022 11:11-0400 Respiratory rate 16 /min Andreia Gaytan LATHE OPERATOR Work Phone: [facility] 10-13-2022 11:11-0400 SaO2% (BldA) [Mass fraction] 95 % Andreia Gaytan LATHE OPERATOR Work Phone: [facility] 10-13-2022 11:11-0400 Systolic blood pressure 120 mm[Hg] Andreia Gaytan LATHE OPERATOR Work Phone: [facility] 04-15-2022 15:35-0400 Body temperature 98.1 [degF] Fred Nimisha DO Work Phone: [facility] 04-15-2022 15:35-0400 Diastolic blood pressure 61 mm[Hg] Fred Nimisha DO Work Phone: [facility] 04-15-2022 15:35-0400 Heart rate 78 /min Fred Nimisha DO Work Phone: [facility] 04-15-2022 15:35-0400 Respiratory rate 16 /min Fred Nimisha DO Work Phone: [facility] 04-15-2022 15:35-0400 SaO2% (BldA) [Mass fraction] 96 % Fred Nimisha DO Work Phone: [facility] 04-15-2022 15:35-0400 Systolic blood pressure 102 mm[Hg] Fred Nimisha DO Work Phone: [facility] 04-13-2022 12:00-0400 Body height 170.2 cm Fred Nimisha DO Work Phone: [facility] 04-13-2022 12:00-0400 Body mass index (BMI) [Ratio] 31.32 kg/m2 Fred Nimisha DO Work Phone: [facility] 04-13-2022 12:00-0400 Body weight 90.72 kg Fred Nimisha DO Work Phone: [facility] 02-19-2022 13:43-0400 Body height 170.2 cm Ivania Atwood MD Work Phone: [facility] 02-19-2022 13:43-0400 Body mass index (BMI) [Ratio] 31.01 kg/m2 Ivania Atwood MD Work Phone: [facility] 02-19-2022 13:43-0400 Body temperature 98.6 [degF] Ivania Atwood MD Work Phone: [facility] 02-19-2022 13:43-0400 Body weight 89.81 kg Ivania Atwood MD Work Phone: [facility] 02-19-2022 13:43-0400 Diastolic blood pressure 71 mm[Hg] Ivania Atwood MD Work Phone: [facility] 02-19-2022 13:43-0400 Heart rate 87 /min Ivania Atwood MD Work Phone: [facility] 02-19-2022 13:43-0400 SaO2% (BldA) [Mass fraction] 96 % Ivania Atwood MD Work Phone: [facility] 02-19-2022 13:43-0400 Systolic blood pressure 117 mm[Hg] Ivania Atwood MD Work Phone: [facility] 06-12-2019 17:06-0500 BMI (Body Mass Index) 28.19 kg/m2 [facility] 06-12-2019 17:06-0500 Body weight 81.65 kg [facility] 06-12-2019 17:06-0500 Height 170.2 cm [facility] 02-03-2019 08:32-0400 Body Temperature 98.4 [degF] Fred Nimisha [facility] 02-03-2019 08:32-0400 BP Diastolic 77 mm[Hg] [facility] 02-03-2019 08:32-0400 BP Systolic 138 mm[Hg] [facility] 02-03-2019 08:32-0400 Pulse (Heart Rate) 78 /min [facility] 02-03-2019 08:32-0400 Pulse Oximetry 97 % [facility] 02-03-2019 08:32-0400 Respiratory Rate 14 /min [facility] 01-31-2019 11:05-0400 BMI (Body Mass Index) 33.2 kg/m2 [facility] 01-31-2019 11:05-0400 Body weight 96.16 kg [facility] 01-31-2019 11:05-0400 Height 170.2 cm [facility] 01-18-2019 22:44-0400 Body Temperature 98.01 [degF] [facility] 01-18-2019 22:44-0400 BP Diastolic 80 mm[Hg] [facility] 01-18-2019 22:44-0400 BP Systolic 130 mm[Hg] [facility] 01-18-2019 22:44-0400 Pulse (Heart Rate) 110 /min [facility] 12-10-2018 12:44-0400 Body Temperature 98.01 [degF] [facility] 12-10-2018 12:44-0400 BP Diastolic 54 mm[Hg] [facility] 12-10-2018 12:44-0400 BP Systolic 124 mm[Hg] [facility] 12-10-2018 12:44-0400 Pulse (Heart Rate) 80 /min [facility] 12-10-2018 12:44-0400 Pulse Oximetry 98 % [facility] 12-10-2018 12:44-0400 Respiratory Rate 16 /min [facility] 12-08-2018 23:00-0400 BMI (Body Mass Index) 32.26 kg/m2 [facility] 12-08-2018 23:00-0400 Body weight 93.44 kg [facility] 12-08-2018 23:00-0400 Height 170.2 cm [facility] 06-16-2017 15:23-0500 BMI (Body Mass Index) 30.38 kg/m2 Wilfred Nolasco [facility] Work Phone: 06-16-2017 15:23-0500 Body Temperature 98.29 [degF] Wilfred Nolasco [facility] Work Phone: 06-16-2017 15:23-0500 BP Diastolic 60 mm[Hg] Wilfred Nolasco [facility] Work Phone: 06-16-2017 15:23-0500 BP Systolic 123 mm[Hg] Wilfred Nolasco [facility] Work Phone: 06-16-2017 15:23-0500 Height 170.2 cm Wilfred Nolasco [facility] Work Phone: 06-16-2017 15:23-0500 Pulse (Heart Rate) 83 /min Wilfred Nolasco [facility] Work Phone: 06-16-2017 15:23-0500 Pulse Oximetry 98 % Wilfred Nolasco [facility] Work Phone: 06-16-2017 15:23-0500 Respiratory Rate 16 /min Wilfred Nolasco [facility] Work Phone: 06-16-2017 15:23-0500 Weight 88 kg Wilfred Nolasco [facility] Work Phone: 05-10-2017 18:07-0500 BMI (Body Mass Index) 30.07 kg/m2 Marie Lehman [facility] Work Phone: 05-10-2017 18:07-0500 Body Temperature 98.8 [degF] Marie Lehman [facility] Work Phone: 05-10-2017 18:07-0500 BP Diastolic 80 mm[Hg] [facility] Work Phone: 05-10-2017 18:07-0500 BP Systolic 128 mm[Hg] Marie Lehman [facility] Work Phone: 05-10-2017 18:07-0500 Height 170.2 cm [facility] Work Phone: 05-10-2017 18:07-0500 Pulse (Heart Rate) 77 /min Marie Lehman [facility] Work Phone: 05-10-2017 18:07-0500 Pulse Oximetry 98 % Marie Lehman [facility] Work Phone: 05-10-2017 18:07-0500 Respiratory Rate 15 /min Marie Lehman [facility] Work Phone: 05-10-2017 18:07-0500 Weight 87.09 kg Marie Lehman [facility] Work Phone: 03-03-2017 08:35-0400 BMI (Body Mass Index) 28.82 kg/m2 [facility] Work Phone: 03-03-2017 08:35-0400 Height 170.2 cm [facility] Work Phone: 03-03-2017 08:35-0400 Respiratory Rate 16 /min [facility] Work Phone: 03-03-2017 08:35-0400 Weight 83.46 kg [facility] Work Phone: 02-17-2017 14:51-0400 BMI (Body Mass Index) 28.82 kg/m2 [facility] Work Phone: 02-17-2017 14:51-0400 Height 170.2 cm Jovi [facility] Work Phone: 02-17-2017 14:51-0400 Respiratory Rate 16 /min [facility] Work Phone: 02-17-2017 14:51-0400 Weight 83.46 kg [facility] Work Phone: 02-01-2017 13:48-0400 BMI (Body Mass Index) 28.82 kg/m2 [facility] Work Phone: 02-01-2017 13:48-0400 Height 170.2 cm [facility] Work Phone: 02-01-2017 13:480406 Respiratory Rate 14 /min Jovi Cruz [facility] Work Phone: 02-01-2017 13:48-0400 Weight 83.46 kg Jovi Cruz [facility] Work Phone: Encounters Encounter Date Encounter Type Care Provider Facility Start: 02-11-2023 End: 02-12-2023 ambulatory SHERRI REYNOSO [facility] Start: 02-11-2023 End: 02-11-2023 Office outpatient new 30 minutes Sherri Reynoso MD Work Phone: [facility] Procedures Date Procedure Procedure Detail Performing Clinician [...] Work Phone: Start: 04-13-2022 End: 04-13-2022 section [employer] e DO Work Phone: Start: [...] of 2) Zoster Vaccines (1 of 2) [facility] Start: 05-10-2027 DTaP/Tdap/Td Vaccines (2 - Td or Tdap) DTaP/Tdap/Td Vaccines (2 - Td or Tdap) [facility] Start: 05-10-2027 Tetanus vaccination [facility] Start: 11-26-2023 Thyroid stimulating hormone measurement TSH Level [facility] Start: 10-14-2023 Depression screening using PHQ-9 (Patient Health Questionnaire 9) score Depression Screening (PHQ-2/9) [facility] Start: 02-19-2023 Depression screening using PHQ-9 (Patient Health Questionnaire 9) score Depression Screening (PHQ-2/9) [facility] Start: 02-19-2023 History and physical examination, annual for health maintenance Wellness Visit [facility] Start: 02-12-2023 Influenza vaccination Influenza Vaccine (#1) [facility] Start: 02-11-2023 End: 02-12-2024 Thyrotropin [Units/volume] in Serum or Plasma [facility] Service Area Work Phone: Immunizations Immunization Date Immunization Notes Care Provider Fa cili 04-15-2022 influenza, injectabl e, quadrivalent, preservative free Fred Nimisha DO Work Phone: [facility] 04-15-2022 influenza virus vaccine, unspecified formulation Sherri Reynoso MD Work Phone: [facility] Work Phone: 04-13-2022 diphtheria, tetanus toxoids and acellular pertussis vaccine, unspecified formulation Fred Nimisha DO Work Phone: [facility] 04-13-2022 measles, mumps and rubella virus vaccine Fred Nimisha DO Work Phone: [facility] 04-13-2022 varicella zoster immune globulin Fred Nimisha DO Work Phone: [facility] 06-01-2021 Moderna SARS-CoV-2 Vaccination Sherri Reynoso MD Work Phone: [facility] Work Phone: 10-09-2020 Moderna SARS-CoV-2 Vaccination Sherri Reynoso MD Work Phone: [facility] Work Phone: 09-10-2020 Moderna SARS-CoV-2 Vaccination Sherri Reynoso MD Work Phone: [facility] Work Phone: 01-31-2019 diphtheria, tetanus toxoids and acellular pertussis vaccine, unspecified formulation [facility] 01-31-2019 measles, mumps and rubella virus vaccine [facility] 01-31-2019 varicella zoster immune globulin [facility] 05-10-2017 tetanus toxoid, reduced diphtheria toxoid, and acellular pertussis vaccine, adsorbed; Translations: [TDAP] Marie Lehman [facility] Payers Date Payer Category Payer Unknown [id number] 2023 Unknown [id number] 2019 Private Health Insurance CARIDAD LUGO OPEN ACCESS MANAGED CHOICE xxxxxxxxxx 2019-Present xxxxxxxxxx [id number] 2019 Private Health Insurance [id number] 2018 Unknown [facility] HMO/JUDE/ JUDE PLUS/CHOICE PLUS xxxxxxxxx 2018-Present xxxxxxxxx [id number] 2018 Unknown [id number] 2015 Unknown [id number] 1989 Unknown [id number] 902 1989 Unknown [id number] 903 1989 Unknown [id number] 903 1989 Unknown [id number] 903 1989 Unknown [id number] 903 1989 Unknown [id number] 900 1989 Unknown [id number]. 900 1989 Unknown [id number]. 900 1989 Unknown [id number] 1244 1989 Unknown [id number] Private Health Insurance [id number] Social History Date Type Detail Facility Start: 03-03-2017 End: 02-11-2023 Tobacco smoking status [facility] Never smoker [facility] Work Phone: Start: 1990 Sex Assigned At Not on file [facility] Work Phone: Start: 12-01-2016 Alcohol Comment occ [facility] Start: 05-18-2018 [facility] Start: 01-31-2019 End: 10-13-2022 Alcohol intake Current drinker of alcohol (finding) [facility] Start: 02-19-2022 End: 02-11-2023 Tobacco use and exposure Smokeless tobacco non-user [facility] Start: 02-12-2022 History SDOH Alcohol Frequency 1 [facility] Start: 02-12-2022 History SDOH Alcohol Std Drinks 0 [facility] Start: 02-12-2022 History SDOH Social Connections Phone 4 [facility] Start: 02-12-2022 History SDOH Social Connections Get Together 2 [facility] Start: 02-12-2022 History SDOH Social Connections Confucianist 98 [facility] Start: 02-12-2022 History SDOH Social Connections Living 3 [facility] Start: 02-09-2022 End: 10-12-2022 Exposure to SARS-CoV-2 (event) Not sure [facility] Start: 02-12-2022 End: 02-11-2023 History of Social function [facility] Start: 02-12-2022 End: 02-11-2023 Humiliation, Afraid, Rape, and Kick questionnaire [HARK] [facility] Within the last year , have you been afraid of your partner or ex-partner? No [facility] How often do you att end religious or episcopalian services? Patient refused [facility] Are you now [...] got money to buy more. Never true [facility] Start: 12-05-2018 Gender identity Identifies as female gender (finding) [facility] Start: 12-05-2018 Sexual orientation Heterosexual (finding) [facility] Start: 02-11-2023 Alcohol intake Ex-drinker (finding) [facility] Work Phone: Medical Equipment Procedure Code Equipment Code Equipment Origin al Text Equipment Identifier Dates Hemostat 3g Powd er Absorbable Surgicel - [id number] [id number], [id number] [facility] Start: 04-13-2022 Clinical Notes 02-19-2022 to 02-11-2023 Sherri Reynoso MD - 02/11/2023 2:00 PM Homer Gaytan, LATHE OPERATOR - 10/13/2022 11:21 AM Nadya Atwood MD [...] last day of her coverage. Moved to [place] recently . , 2 kids , . [...] takes or not. 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 Travels for her work. Review of Systems [...] Nessa Reynoso MD documented in this encounter [facility] Work Phone: 10-13-2022 History of Presen [...] Procedure: SECTION; Surgeon: Fred Bansal DO; Location: [facility] OB OR; Service: OBGYN SECTION N/A 04/13/2022 Procedure: SECTION; Surgeon: Fred Bansal DO; Location: [facility] OB OR; Service: OBGYN SECTION, LOW TRANSVERSE [...] [facility] P[facility] documented in this encounter [facility] 08-04-2022 History of Presen t illness Narrative [facility] reviewed, placed in scan folder. Pertinent info: TSH 0.01 with elevated T4. Chart updated with pertinent info. Received lab results, placed in review folder. documented in this encounter [facility] 04-15-2022 Note Formatting of this n ote might be different from the original. Patient provided AVS and proper education, all questions answered. Infant secured in car seat per parents. ID bands and security tag verified prior to discharge. Patient discharged from unit with infant in car seat on her lap, via wheelchair, accompanied by PSA. [facility] 04-15-2022 Miscellaneous Notes Patient provided AVS and proper education, all questions answered. secured in car seat per parents. ID bands and infant security tag verified prior to discharge. Patient [...] 610 mL Total 610 mL Aimee Sams [[id number]] Delivery Anesthesia Method: Spinal Operative Delivery Forceps attempted?: No Vacuum extractor attempted?: No Presentation No data filed Addison Information date/time: 04/13/221413 Gender: Female Delivery type: , Low Transverse Delivery location: OB Unit Provider Present: Routine Initial disposition: Routine NB Care Details: Trial of labor?: No categorization: Repeat priority: Scheduled Indications for : Prior , Low Transverse Skin incision type: Pfannenstiel Delivery Providers Delivering clinician: Fred Bansal DO Other personnel: Provider Role Covering Attending Resident Nursing Assistants Teacher Delivery Nurse Registered Nurse Delivery Assist Nurse [...] Minute: 10 Minute: 15 Minute: 20 Minute: Addison Measurements Weight: Lacerations No data filed Other Procedures Procedures: None Brief Post Operative Note Patient Name: Veronica Sams : 1990 (32 y.o.) Date of Service: 04/13/2022 CSN: [id number] Procedure(s): SECTION Pre-Operative Diagnoses: * repeat = HTN 05/03, , 37+1 Post-Operative Diagnoses: SAME Surgeon(s) and Role: * Fred Bansal, - Primary * Charleen Davidson MD - Resident - Assisting Anesthesiologist: Nessa Schmitt MD [place] GUIDE: Romi Contreras CRNA Refinery Superintendent: Sherry Duggan Do, RN Refinery Superintendent Orientee: Palma Salazar RN Scrub Person Orientee: [employer] Manager Gas: DEMETRA Olmos Nursery Nurse: Rebecca Brady RN [...] Implant Name Type Inv. Item Serial No. Oil Rigger Lot No. LRB No. Used Action HEMOSTAT 3G POWDER ABSORBABLE SURGICEL - [id number] HEMOSTAT 3G POWDER ABSORBABLE SURGICEL [id number] ETHICON SKBCPB N/A 1 Implanted Drain(s): Urethral Catheter 16 Fr. (Active) Wound(s): Wound 04/13/22 Surgical Wound Abdomen (Active) Charleen Davidson MD 04/13/2022 2:49 PM VERONICA SAMS [facility] [id number] 1990 DATE 04/13/2022 OPERATIVE REPORT SURGEON FRED BANSAL DO C PYTHON DEVELOPER Charleen Davidson MD PREOPERATIVE DIAGNOSES 1. Gestational [...] placenta. Normal-appearing uterus, bilateral tubes and ovaries. Xxuudan-qc-mgwproaf adhesive disease. DESCRIPTION OF PROCEDURE This patient [...] tying at the other. Several 0 Vicryl pmgnag-ef-fqfik sutures were used to ensure hemostasis. The [...] RESIDENT FRED BANSAL DO D 04/13/2022 14:58 [id number] T 04/14/2022 01:43 ALVAREZ/MODL documented in this encounter [facility] 04-15-2022 Hospital course Narrative Section Discharge [...] Your Medications These medications were sent to [id number] - [place], [place] - [address], [place] [address] oxyCODONE 5 MG immediate release tablet documented in this encounter [facility] 04-15-2022 History of Presen t illness [...] %] 97 % documented in this encounter [facility] 04-15-2022 Obstetrics Note This note was [...] helpline number and list of outpatient resources. [facility] 04-14-2022 Obstetrics Note This note was [...] handout. Will follow up tomorrow before discharge. [facility] 04-14-2022 Obstetrics Note This note was [...] possible. Denies further questions at this time. [facility] 04-13-2022 Obstetrics Note LC rounded on [...] list of outpatient resources and helpline number. [facility] 04-13-2022 Labor and deliver y summary note Section Delivery Note Diagnosis: Principal Problem: Gestational hypertension, third trimester Mother's Information Delivery Blood Loss 04/13/22 1359 - 04/13/22 1451 Quantitative Blood Loss - Delivery (mL) Hospital Encounter 610 mL Total 610 mL Aimee Sams [[id number]] Delivery Anesthesia Method: Spinal Operative Delivery Forceps attempted?: No Vacuum extractor attempted?: No Presentation No data filed Addison Information date/time: 04/13/221413 Gender: Female Delivery type: , Low Transverse Delivery location: OB Unit Provider Present: Routine Initial disposition: Routine NB Care Details: Trial of labor?: No categorization: Repeat priority: Scheduled Indications for : Prior , Low Transverse Skin incision type: Pfannenstiel Delivery Providers Delivering clinician: Fred Bansal DO Other personnel: Provider Role Covering Attending Resident Nursing Assistants Teacher Delivery Nurse Registered Nurse Delivery Assist Nurse [...] Minute: 10 Minute: 15 Minute: 20 Minute: Addison Measurements Weight: Lacerations No data filed Other Procedures Procedures: None [facility] Work Phone: 04-13-2022 Note Formatting of this n ote is different from the original. Brief Post Operative Note Patient Name: Veronica Sams : 1990 (32 y.o.) Date of Service: 04/13/2022 CSN: [id number] Procedure(s): SECTION Pre-Operative Diagnoses: * repeat = HTN 05/03, , 37+1 Post-Operative Diagnoses: SAME Surgeon(s) and Role: * Fred Bansal DO - Primary * Charleen Davidson MD - Resident - Assisting Anesthesiologist: Nessa Schmitt MD [place] GUIDE: Romi Contreras CRNA Refinery Superintendent: Sherry Duggan Do, RN Refinery Superintendent Orientee: Palma Salazar RN Scrub Person Orientee: [employer] Manager Gas: DEMETRA Olmos Nursery Nurse: Rebecca Brady RN [...] Implant Name Type Inv. Item Serial No. Oil Rigger Lot No. LRB No. Used Action HEMOSTAT 3G POWDER ABSORBABLE SURGICEL - [id number] HEMOSTAT 3G POWDER ABSORBABLE SURGICEL 3013SP ETHICON SKBCPB N/A 1 Implanted Drain(s): Urethral Catheter 16 Fr. (Active) Wound(s): Wound 04/13/22 Surgical Wound Abdomen (Active) Charleen Davidson MD 04/13/2022 2:49 PM [facility] 04-13-2022 Note Formatting of this n ote might be different from the original. VERONICA SAMS [facility] [id number] [facility] [id number] 1990 DATE 04/13/2022 OPERATIVE REPORT SURGEON FRED BANSAL DO C PYTHON DEVELOPER Charleen Davidson MD PREOPERATIVE DIAGNOSES 1. Gestational [...] placenta. Normal-appearing uterus, bilateral tubes and ovaries. Xwqaibx-vg-hzwljngx adhesive disease. DESCRIPTION OF PROCEDURE This patient [...] tying at the other. Several 0 Vicryl jpeerc-cn-shqwm sutures were used to ensure hemostasis. The [...] RESIDENT FRED BANSAL DO D 04/13/2022 14:58 [id number] T 04/14/2022 01:43 ALVAREZ/MODL [facility] 04-13-2022 History and physical note OB History and Physical Note Patient Name: Veronica Sams : 1990 Admit Date: 04/13/2022 MR #: [id number] ASSESSMENT AND PLAN: Veronica Sams is a [...] Procedure: SECTION; Surgeon: Fred Bansal DO; Location: [facility] OB OR; Service: OBGYN SECTION, LOW TRANSVERSE [...] 12/08/2018 Fred Bansal DO 04/13/2022 1:24 PM [facility] 04-13-2022 History and physical note OB History and Physical Note Patient Name: Veronica Sams : 1990 Admit Date: 04/13/2022 MR #: [id number] ASSESSMENT AND PLAN: Veronica Sams is a [...] Procedure: SECTION; Surgeon: Fred Bansal DO; Location: [facility] OB OR; Service: OBGYN SECTION, LOW TRANSVERSE [...] 04/13/2022 1:24 PM documented in this encounter [facility] 02-19-2022 History of Presen t illness Narrative [facility] [address] [id number] Dept: [phone] Assessment and Plan: 1. Well adult exam [...] up: , patient to schedule Subjective No graduate assistant was required during this visit. HPI Presented [...] Ivania Atwood MD Family Medicine, Primary Care [facility] Family Medicine, Bonding Supervisor Depression Screening 02/19/2022 Little interest or pleasure [...] difficult at all documented in this encounter [facility] Gestational hypertension, third trimester- Primary Postoperative pain Other acute postoperative pain [facility] Diagnosis Hypothyroidism, unspecified type- Primary Generalized anxiety disorder [facility] Diagnosis Hypothyroidism, unspecified type- Primary Anxiety Anxiety state, unspecified documented in this encounter [facility] Work Phone: Hospital Discharge instructions* Attachments The following attachments cannot be sent through Care Everywhere. * Section: Post-op (Thai) * (Thai) [facility] Diagnosis Osteochondral [...] medicine. Get some extra rest. Take an idur-aan-chfrrka pain medicine, such as acetaminophen (Tylenol), ibuprofen (Advil, Motrin),or naproxen (Aleve) to reduce fever and relieve body aches. Read and follow all instructions on thelabel. Do not take two or more pain medicines at the same time unless the doctor told you to. Many pain medicines have acetaminophen, which is Tylenol. Too much acetaminophen (Tylenol) can be harmful. Take an wyrj-hux-lnfgizz cough medicine that contains dextromethorphan to help [...] Log into your personal health record on [email or web address] and enter H333 in the Education box to learn more about Bronchitis: Care Instructions. Current as of: November 04, 2015 Content Version: 11.2 3250-1548 [employer]. Care instructions adapted under license by your healthcare professional. If you have questions about a medical condition or this instruction, always ask your healthcare professional. [employer] disclaims any warranty or liability for your [...] FoundDocuments on File Type Date Recorded Patient Global Logistics Analyst Expl anation Advance Directives and Livin g Will 12/08/2018 1:21 PM Latest Code Status on File Code Status Date Activated Date Inactivated Comments Full Code 12/08/2018 2:14 PM Documents on File Type Date Recorded Patient Global Logistics Analyst Expl anation Advance Directives and Livin g Will 01/04/2019 10:54 PM Latest Code Status on File Code Status Date Activated Date Inactivated Comments Full Code 01/04/2019 11:07 PM Full Code 12/08/2018 2:14 PM 01/04/2019 10:52 PM Documents on File Type Date Recorded Patient Global Logistics Analyst Expl anation Advance Directives and Livin g Will 01/04/2019 10:54 PM Latest Code Status on File Code Status Date Activated Date Inactivated Comments Full Code 01/04/2019 11:07 PM Full Code 12/08/2018 2:14 PM 01/04/2019 10:52 PM Documents on File Type Date Recorded Patient Global Logistics Analyst Expl anation Advance Directives and Livin g Will 01/18/2019 11:16 PM Latest Code Status on File Code Status Date Activated Date Inactivated Comments Full Code 01/04/2019 11:07 PM 01/18/2019 10:38 PM Documents on File Type Date Recorded Patient Global Logistics Analyst Expl anation Advance Directives and Livin g Will 01/31/2019 11:09 AM Latest Code Status on File Code Status Date Activated Date Inactivated Comments Full Code 01/31/2019 4:18 PM Full Code 01/31/2019 11:01 AM 01/31/2019 4:18 PM Full Code 01/04/2019 11:07 PM 01/18/2019 10:38 PM Documents on File Type Date Recorded Patient Global Logistics Analyst Expl anation Advance Directives and Livin g Will 01/31/2019 11:09 AM Advance Directives and Livin g Will 06/12/2019 4:56 PM Latest Code Status on File Code Status Date Activated Date Inactivated Comments Full Code 01/31/2019 4:18 PM Full Code 01/31/2019 11:01 AM 01/31/2019 4:18 PM Full Code 01/04/2019 11:07 PM 01/18/2019 10:38 PM Documents on File Type Date Recorded Patient Global Logistics Analyst Expl anation Advance Directives and Livin g [...] 12/10/2018 1:10 PM EDT Neurology Inpatient Progress [facility] 12/10/2018 Lyssa Elena CNP [facility] Patient: Veronica Sams Date of : 1990 (28 y.o.) Referring Provider: Refer to consult order in electronic medical record PCP: Wilfred Nolasco DO ASSESSMENT: 28 y.o. female with history of no past history, currently 31 weeks , presented to [facility] on 12/08/2018 with headache and vision [...] & GROSS MOTOR: Abnormal Movements: None Coordination Pfcxoz-zq-Pwck: Normal Coordination: Pchv-Ulbg-Pale:Normal Rapid Alternating Movements: Normal Drift: None Tone: [...] Veronica Sams Admit Date: 6260622 MR #: [id number] : 1990 ASSESSMENT AND PLAN: Gestational hypertension [...] hermilo / + accels / - decels [place]: quiet Current medications: famotidine 20 mg Oral [...] Veronica Sams Admit Date: 6260622 MR #: [id number] : 1990 ASSESSMENT AND PLAN: Veronica Oneill [...] FHTS: 13/mod/ + accels/ rare variable decels [place]: some regular contractions overnight, irritable after continued [...] this visit. ASSESSMENT/INTERVENTION: Veronica reports she is Taoist, active in her eulalia. They attend [employer] [facility], and decline offer to call their parish [...] 1-15 Patient Spiritual Assessment Spiritual Assessed Yes Samaritan Affiliation Taoist Active in rastafarian Yes Place of episcopalian [facility] Barber Hernandez MDiv., [facility] Women's Health Advanced Composite Boat Builder Practitioner [facility] ; pager: [phone] documented in this encounter* Gregg Turcios DO - 01/11/2019 5:31 PM EDT I note that the patient has not followed up with me. She has history of significant Chiari more information. She had been discharged prior to me seeing her. I did discuss her situation with the INNER DIAMETER GRINDER TOOL service and I also dictated note approximately 1 month ago which is in the electronic medical record. I will have my office contact the patient to see if she would like to follow-up. I will have my office send her INNER DIAMETER GRINDER TOOL my note. documented in this encounter* Gregg [...] 01/16/2019 6:39 PM EDT I saw Veronica duncan in the office today for evaluation. She [...] prior to giving . Recently seen inpatient [facility] 12/10/18. Patient states she has had some [...] [14-16] 16 BP: (103-122)/(61-83) 114/77 * Fred Bansal DO - 02/01/2019 6:47 AM EDT Section [...] a 01/31/19. 06/12/19 MRI C/T Spine in [facility]. Veronica has been doing well. She still does have intermittent headaches that are more posterior innature with tension in her shoulders. She gets occasional floaters with her headaches but denies other disturbances. documented in this encounter* Candelaria Enrique - 12/19/2018 4:55 PM EDT Approached patient for participation in [facility] clinical trial. Discussed purpose of the study, [...] through Care Everywhere. * : Kick Counts (Thai) * : WEEKS 30 TO 32 (CYPRIOT) documented in this encounter* Attachments The following attachments cannot be sent through Care Everywhere. * : KICK COUNTS (CYPRIOT) * : WEEK 37 (CYPRIOT) documented in this encounter* Discharge Instr - Care Coordination* Augusta Waggoner RN - 02/02/2019 10:39 AM EDT RESOURCES FOR PRIMARY CARE [facility] Referral Service: Call (use option 1) [...] your doctor if you can take an rdlc-nob-hchilcj medicine. If you think your pain medicine [...] Log into your personal health record on [email or web address] and enter M006 in the Education box to learn more about Section: What to Expect at Home. Current as of: February 16, 2018 Content Version: 05.14-2019 [employer]. Care instructions adapted under license by your healthcare professional. If you have questions about a medical condition or this instruction, always ask your healthcare professional. [employer] disclaims any warranty or liability for your use of this information. Discharge education completed. documented in this encounter Reason for Referral Status Reason Specialty Diagnoses / Procedures Referred By Contact Referred To Contact Pending Review Radiology Diagnoses Thoracic radiculopathy Procedures MR Thoracic Spine With Contrast Gregg Turcios, DO [address] [place] [address] Status Reason Specialty Diagnoses / Procedures Referred By Contact Referred To Contact Pending Review Radiology Diagnoses Cervical radiculopathy Procedures MR Cervical Spine Without Contrast Gregg Turcios, [address] [place] [address] Status Reason Specialty Diagnoses / Procedures Referre d By Contact Referred To Contact Closed Radiology Diagnoses Cervical radiculopathy Procedures MR Cervical Spine Without Contrast Gregg Turcios, DO [address] [place] [address] Additional Source Comments INFORMATION SOURCE (unrecogn ized section and content) DATE CREATED AUTHOR AUTHOR'S ORGANIZ ATION 02/06/2022 [facility] DATE CREATED AUTHOR AUTHOR'S ORGANIZ ATION 10/20/2022 [facility] DATE CREATED AUTHOR AUTHOR'S ORGANIZ ATION 11/29/2022 [place] DATE CREATED AUTHOR AUTHOR'S ORGANIZ ATION 02/12/2023 [facility] DATE CREATED AUTHOR AUTHOR'S ORGANIZ ATION 02/15/[address] [facility] Reason for Visit (unrecogniz ed section and [...] Cervical Spine Without Contrast Gregg Turcios, DO [address] [place] [address] Status Reason Specialty Diagnoses / Procedures Re ferred By Contact Referred To Contact New Request Radiology Diagnoses Thoracic radiculopathy Procedures MR Thoracic Spine Without Contrast MR Thoracic Spine With Contrast Gregg Turcios, DO [address] [facility] [address] [place] [address] Reason Comments Follow-up Reason Comments Thyroid Problem [...] Expiration Date Visits Re quested Visits Authorized [id number] 1 1 Reason Comments Follow-up Thyroid medication [...] Veronica Sams Admit Date: 6260622 MR #: [id number] : 1990 Physicians: Wilfred Nolasco DO (Family); Dr. Bansal (Referring) CC: Headache [...] No rashes or ulcers FHTs: 125/mod/+accels/no decels [place]: quiet Labs and Additional Data Reviewed: Laboratory [...] : 1990 Admit Date: 01/31/2019 MR #: [id number] ASSESSMENT AND PLAN: Veronica Sams is a [...] / thick / -2 FHT: Cat 1 [place]: quiet Labs Lab Results Component Value Date ABORH A Positive 01/30/2019 ABSCRN Negative 01/30/2019 GBSPCR Negative for Group B Streptococcus by PCR 12/08/2018 Fred Bansal DO 01/31/2019 1:01 PM documented in this encounter Shawn Keita MD - 12/09/2018 8:45 AM EDT Consult Notes (unrecognized section and content) Associated Order(s): IP CONSULT TO NEUROLOGY Neurology Inpatient Consult [facility] 12/09/2018 Shawn Keita MD [facility] Patient: Veronica Sams Date of : 1990 (28 y.o.) Referring Provider: Refer to consult order in electronic medical record PCP: Wilfred Nolasco DO ASSESSMENT: 28 y.o. female with history of no past history, currently 31 weeks , presented to [facility] on 12/08/2018 with headache and vision changes. [...] file Gets together: Not on file Attends episcopalian service: Not on file Active member of [...] sodium chloride (PF) 5 mL Intravenous Q8H [facility] PRN Medications: acetaminophen, lidocaine 1%, Saline [...] & GROSS MOTOR: Abnormal Movements: None Coordination Gwskzx-ir-Xocv: Normal Coordination: Tcud-Ssbw-Vyjw:Normal Rapid Alternating Movements: Normal Drift: None Tone: [...] zofran provided. D/w Dr. Yesenia Collazo MD INNER DIAMETER GRINDER TOOL, PGY2 Pager: [phone] 12/10/18 2:33 PM Neurology Sign-Off Diagnosis: Headache and vision changes Chiari malformation Tests Pending: None Discharge Medications & Treatments: None Additional Recommendations: None Follow-up Testing (After Discharge): None Follow-up Appointment: No neurology outpatient follow-up recommended at this time Recall: Non-Urgent Questions or Reconsultation ([facility]): Call Neurology veneer jointer helper [phone] Urgent Questions: Use [facility] On-call Directory to contact Physician Associated [...] D/w Dr. Roper (Senior resident), Dr. Patterson (metal sprayer production attending) [facility] Utilization Review Notes EMERGENCY [...] history, currently 31 weeks , presented to [facility] on 12/08/2018 with headache and vision changes. [...] hermilo / + accel / no decels [place]: quiet A/P STAT HELLP labs pending. Repeat [...] and the Temporary Breastpumping handout. Recommended early fireworks assembler appointment for weight check. Instructed to follow [...] Assisting Anesthesia Staff: Anesthesiologist: Magen Vance MD [place] GUIDE: Romi Contreras CRNA OR Staff: Refinery Superintendent: Rosendo Nino RN Manager Gas: [facility] Nursery Nurse: Rachana Smith RN; [...] scalpel. Membranes were ruptured for clear fluid. Infant was noted to be in cephalic presentation. The was delivered atraumatically. Cord was clamped and cut at 60 seconds and the infant was taken to the nursery staff. Cord [...] Fred Bansal DO 01/31/2019 2:15 PM CSN: [id number] Section Delivery Note Diagnosis: Active Problems: Gestational hypertension Aimee Sams [[id number]] Delivery Anesthesia Method: Spinal Operative Delivery No data filed Presentation Presentation: Vertex _: Occiput _: Anterior Addison Information date/time: 01/31/19 1327 Gender: Male Delivery type: , Low Transverse Delivery location: In facility - Outside OB Unit Initial disposition: Routine NB Care Details: Delivery Providers Delivering clinician: Fred Bansal DO Other personnel: Provider Role Covering Attending Lila Colorado MD Resident Nursing Assistants Teacher Delivery Nurse Registered Nurse Delivery Assist Nurse Practitioner Cord Vessels: 3 vessels Complications: None Cord blood obtained?: Refrigerator Cord segment obtained?: Yes Gases sent?: Yes Placenta No data filed Addison Apgars Living status: Living Scoring Guzmán: 0 [...] 20 Minute: Apgars assigned by: CHRIS FLORES Addison Measurements Weight: 7 lb (3175 g) Length: 20.5 Head Circumference: 14 Lacerations No data filed Other Procedures No data filed Brief Post Operative Note Patient Name: Veronica Sams : 1990 (28 y.o.) Date of Service: 01/31/2019 CSN: [id number] Procedure(s): SECTION Pre-Operative Diagnoses: * Primary = gentle, GHTN 02/08, , 38+6 Post-Operative Diagnoses: same Surgeon(s) and Role: * Fred Bansal DO - Primary * Lila Colorado MD - Resident - Assisting Anesthesiologist: Magen Vance MD [place] GUIDE: Romi Contreras CRNA Refinery Superintendent: Rosendo Nino RN Manager Gas: [facility] Nursery Nurse: Rachana Smith RN; [...] Care Teams (unrecognized sec tion and content) Note Specialist Relationship Specialty Start Date End Date Ivania Atwood MD [address] [place] [address] PCP - General Family Medicine 02/19/22 Fred Bansal DO [address] [place] [address] Consulting Physician Obstetrics/Gynecology 03/31/22 Note Specialist Relationship Specialty Start Date End Date Ivania Atwood MD [address] [place] [address] PCP - General Family Medicine 02/19/22 Fred Bansal DO [address] [place] [place] [address] Consulting Physician Obstetrics/Gynecology 03/31/22 Note Specialist Relationship Specialty Start Date End Date Ivania Atwood MD [address] [place] [address] PCP - General Family Medicine 02/19/22 Fred Bansal DO [address] [place] [address] Consulting Physician Obstetrics/Gynecology 03/31/22 Note Specialist Relationship Specialty Start Date End Date Sherri Reynoso MD [address] [facility] [place] [address] PCP - General Family Medicine 02/11/23 Scheduled [...] - Provider: Keely Matthews, SANDRA) flu vacc [id number] 6mos up(PF) (FLUZONE QUAD/FLULAVAL QUAD/FLUARIX QUAD) syringe [...] If indicated, administer prior to discharge. Provide [facility] vaccine information sheet(s) (VIS) for patient for [...] BE BASED ON THE PRIMARY CLINICAL RECORDS. [employer] [facility]. provides no warranty or guarantee of the accuracy or completeness of information in this document.
[2023-07-23 08:11] LABS: Thyroid Peroxidase AB 231 IU/mL (0-34); Thyroid Stim Immunoglob 0.19 IU/L (0.00-0.55)
== END | disposition home or self-care (01) ==
LOC: MFPLAB 15:16
PROVIDERS: PCP Family Medicine; Visit Provider Family Medicine
DX: E03.9 Hypothyroidism, unspecified (principal)
CPT/HCPCS: 36415; 84439; 84443; 84445; 84481; 86376

== ENCOUNTER 2024-01-07 08:30 | Outpatient (RCR) | payer OTHER, SELFPAY ==
--- NOTE | 2023-12-17 08:46 | HP.PTEVAL_ITS ---
Patient's Visit Information Visit Information Visit Information: ELENI ROE is a 33 year old F referred to Physical Therapy by Dr. Ravi Adame MD with a diagnosis of L ankle instability/peroneal tendonitis/exostosis of bone. Date of Evaluation: 12/17/23 Physical Therapist: HETAL Baugh Visit Plan Frequency: 2x /Week Duration: 3 Weeks Plan: 2X/ week for 3 weeks for L ankle strengthening, gait training, balance and proprioception with HEP HEP: orange band [address] Subjective Subjective: She had several surgeries on the L ankle (has a pin on the outside of foot 2007 and 2009). She has always had on and off pain and Dr said bone spurs and instability. said to try PT and then he will see her after 3 weeks and get an MRI. She got a brace and he wants her to wear the brace until PT is done. Her ankle bothers when she is chasing her little kids or when outside on unstable surfaces. It swell and is painful and radiates from the inside of the ankle to the back of the ankle on the L. She has pain everyday depending on what she does determines the severity. Walking last night to [employer] increased her pain today to 6-7/10 Pain L ankle pain: Pain Intensity (Out of 10): 7 Objective Objective: Gait: pt walks with decrease stance time on the L LE and walks with wider RICH Pt has increase pain on the L with both walking on heels and toes. Toe raising was worse than PF. SLB R 30 seconds and L 5 seconds (pt feels like ankle wants to turn inward) Ankle AROM: R DF 9, PF 62, INV 24, EV 12 L DF 12, 62, 32, 10 Ankle MMT: R DF/PF/INV/EV 4/5 L DF 3+/5, PF 3-/4, EV 3-/5, INV 3-/4 Balance/Special Test Scores Lower Extremity Functional Score: 63 Goals Goal 1:: I HEP Goal Time Frame: 2-4 Weeks Goal 2:: Be able to SLB X 20 seconds on the L Goal Time Frame: 2-4 Weeks Goal 3:: Be able to walk with more equal stance time with gait Rehabilitation Potential Rehabilitation Potential: Good Anticipated Interventions Patient/Client Instruction: Educate patient on: Condition and Plan of Care For the Purpose of:: To decrease pain, To increase ROM, To improve nutrient delivery to tissue, To improve muscle performance and motor function, To improve ability to perform ADL's, To improve performance and independence with ADL's, To decrease level of supervision to perform tasks, To improve ability of physical actions for home/community/work/leisure, To improve gait and locomotor functions, To improve health of tissue and To improve balance Therapeutic Exercise to Include: Strength training, Balance training, Gait and locomotor training, Neuromotor development and Active ROM For the Purpose of:: To decrease pain, To increase ROM, To improve nutrient delivery to tissue, To improve muscle performance and motor function, To increase tolerance to activity/condition/position, To improve performance and independence with ADL's, To improve gait and locomotor functions, To increase flexibility/ROM, To improve endurance, To improve balance and To improve safety with gait Functional Training to Include: Gait training For the Purpose of:: To improve gait and locomotor functions and To improve safety with gait Text: Thank you for the opportunity to evaluate your patient. For Medicare and Medicare HMO plans, please review the plan of care and approve it. It will need to be FAXED BACK to us at [phone] for Medicare purposes. For Medicare only, by signing this I certify the plan of care. Please let me know if there are questions or concerns regarding this plan of care. Physician Signature: Date:
--- NOTE | 2024-03-14 08:09 | HP.PTDCSUM ---
Discharge Summary D/C summary: It has been my pleasure to treat ELENI ROE referred by Dr. Ravi Adame MD, with the diagnosis of L ankle instability/peroneal tendonitis/exostosis of bone for a total of 6 visit(s). Discharge Date: 01/07/24 Please see the following information for a summary of their discharge status. Subjective Subjective: I am feeling better overall, but I still hurt if I dont wear my brace Pain L ankle pain: Pain Intensity (Out of 10): 2 Overall Improvement % Improvement: 50 Objective Objective/Function: Pt is I with HEP Pt is able to SLS for 17 seconds until LOB occurs Pt is able to ambulate now with equal stride length and cadance Goals Goal 1:: I HEP Goal Progress: Goal Met Goal 2:: Be able to SLB X 20 seconds on the L Goal Progress: Progressing Goal 3:: Be able to walk with more equal stance time with gait Plan Plan: Discharge to HEP D/C Information Discharge Comments: Discharge to HEP d/c sentence: If there are questions or concerns regarding this patient's physical therapy, please feel free to call me at [phone]. Thank you for the referral of this patient. Sincerely, Marsha Freire, MPT Balance/Gait/Functional tests Balance/Special Test Scores Lower Extremity Functional Score: 62 Improvement % Improvement: 50
== END 2024-01-07 19:00 | disposition home or self-care (01) ==
LOC: PT 08:30
PROVIDERS: PCP Family Medicine; Referring Provider Orthopaedic Surgery; Visit Provider Orthopaedic Surgery
DX: M25.372 Other instability, left ankle (principal); M67.88 Other specified disorders of synovium and tendon, other site; M89.8X7 Other specified disorders of bone, ankle and foot
CPT/HCPCS: 97110; 97161; 97530

== ENCOUNTER → 2024-04-11 | Outpatient (CLI) | payer OTHER, SELFPAY ==
[2024-04-11 12:55] LABS: Hemoglobin A1c 5.2 % (3.8-5.6)
[2024-04-11 13:26] LABS: T4 Free Direct 1.32 ng/dL (0.76-1.46)
[2024-04-11 13:45] LABS: Hematocrit 40.3 % (37-47); Mean Corp Hgb Conc 34.7 g/dL (32-36); Mean Corpuscular Hgb 31.7 pg (27.0-32.0); Mean Corpuscular Volume 91.4 fL (81-99); Mean Platelet Vol. 13.1 fl (6.2-12.0); POSITIVE MORPHOLOGY YES; Platelet Count 192 K/mm3 (150-450); RBC Distribution Width CV 12.5 % (11.6-14.6); RBC Distribution Width SD 41.8 fl (35.1-43.9); Red Blood Count 4.41 M/mm3 (4.2-5.4); Scan Indicated on CBC? Y/N YES- FLAGS NOTED; White Blood Count 6.5 K/mm3 (4.4-11.0)
[2024-04-11 16:13] LABS: AST(SGOT) 13 U/L (15-37); Alanine Aminotransfer ALT/SGPT 18 U/L (13-56); Albumin, Serum 3.9 g/dL (3.2-5.0); Alkaline Phosphatase 85 U/L (45-117); Anion Gap 7 (5-15); BUN 13 mg/dL (7-18); BUN/Creat Ratio 19.2 RATIO (10-20); Calcium,Total 9.5 mg/dL (8.5-10.1); Chloride 104 mmol/L (98-107); Creatinine, Serum 0.68 mg/dL (0.55-1.02); EST Glomerular Filtration Rate 105 mL/min (>60); Est Glom Filt Rate - Afr Amer 127 mL/min (>60); Globulin 3.8 g/dL (2.2-4.2); Glucose 92 mg/dL (74-106); Potassium 4.1 mmol/L (3.5-5.1); Protein, Total 7.7 g/dL (6.4-8.2); Sodium Level 136 mmol/L (136-145)
== END | disposition home or self-care (01) ==
LOC: MFPLAB 09:54
PROVIDERS: PCP Family Medicine; Referring Provider Family Medicine; Visit Provider Family Medicine
DX: E55.9 Vitamin D deficiency, unspecified (principal); E03.9 Hypothyroidism, unspecified; R73.03 Prediabetes
CPT/HCPCS: 36415; 80053; 83036; 84439; 84443; 85027

== ENCOUNTER 2024-08-10 09:00 | Outpatient (RCR) | payer OTHER, SELFPAY ==
--- NOTE | 2024-06-06 08:03 | HP.PTEVAL ---
Patient's Visit Information Visit Information Visit Information: ELENI ROE is a 34 year old F referred to Physical Therapy by Dr. Ravi Adame MD with a diagnosis of anterior ankle impingement and peroneus brevis repair. Date of Evaluation: 06/01/24 Physical Therapist: Nick Clark DPT Visit Plan Frequency: 2x /Week Duration: 6 Weeks Plan: 1) calf stretching, ankle ROM 2) DF/PF strengthening 3) gait escalator mechanic progression 4) LE strengthening 5) ankle proprioception as tolerated No passive inversion Subjective Subjective: Pt. is here today for her initial evaluation with diagnosis of L ankle arthroscopic debridement for anterior ankle impingement and peroneus brevis repair. DOS 04/15/24. Pt. arrives with brace on, she just started WBing a few days prior. Pt. reports overall doing well. Pt. did have therapy prior to surgery, but was not able to get to where she wanted to be. Pt. reports no major issues with walking. Pt. denies N/T in either LE. Pt. has been doing some ankle pumps at home. Pt. was advised to not do much EVR and no INV stretching. Pt. is okay to progress the rest of her motions. Pt. is sleeping well. Pt. is to wear her brace for the next few weeks. Pain L ankle: Pain Intensity (Out of 10): 2 Pain Intensity Range: 0 and 6 Objective Objective: POSTURE: Pt. has increased wt. shift to R side. PALPATION: Pt. has well healing incision, no signs of infection. Dry skin noted. NEURO: Pt. has normal sensation and normal DTR of BLEs. ROM: DF: 8deg, PF 34deg, INV/EVR not tested. MMT: DF 21#, PF 31#; EVR/INV not tested. GAIT: PT. has descent gait pattern, but does have decreased fore foot rocker moment on L side. STAIRS: step to pattern with 2 HR. Balance/Special Test Scores Lower Extremity Functional Score: 25 Goals Goal 1:: LTG: Pt. to be I with HEP. Goal Time Frame: 4-6 Weeks Goal 2:: STG: Pt. to have increased L ankle ROM symmetrical to R ankle. Goal Time Frame: 2-4 Weeks Goal 3:: LTG: Pt. to have symmetrical strength between BLEs. Goal Time Frame: 4-6 Weeks Goal 4:: LTG: Pt. to have normalized gait pattern without increase in L ankle pain. Goal Time Frame: 4-6 Weeks Goal 5:: LTG: Pt. to negotiate steps with 1 HR with reciprocal pattern without increase in symptoms. Goal Time Frame: 4-6 Weeks Rehabilitation Potential Physical Therapy Diagnosis: Pt. has signs and symptoms consistent with anterior ankle impingement and peroneus brevis repair, DOS: 04/15/24. Pt. has marked hypomobility, weakness, difficulty walking and increased pain. Pt. would benefit from Pt to address the above limitations progressing back to all previous levels of function. Rehabilitation Potential: Excellent Anticipated Interventions Patient/Client Instruction: Educate patient on: Condition, Plan of Care, Risk Factors and Benefits of Fitness Program For the Purpose of:: To improve decision making, To facilitate caregiver knowledge, To improve self management, To prevent re-injury and To improve ability to perform tasks related to life management Therapeutic Exercise to Include: Strength training and Balance training For the Purpose of:: To decrease pain, To decrease swelling/inflammation, To increase ROM, To improve nutrient delivery to tissue, To increase oxygenation perfusion, To improve muscle performance and motor function, To improve ability to perform ADL's, To improve gait and locomotor functions, To improve health of tissue and To decrease soft tissue restriction Manual Therapy Techniques to Include: Passive ROM and Soft tissue mobilization For the Purpose of:: To decrease pain, To decrease swelling/inflammation and To increase ROM Cryotherapy (ice pack, ice massage): Yes Vasopneumatic device: Yes For the Purpose of:: To decrease pain, To decrease swelling/inflammation, To increase ROM and To improve nutrient delivery to tissue Text: Thank you for the opportunity to evaluate your patient. For Medicare and Medicare HMO plans, please review the plan of care and approve it. It will need to be FAXED BACK to us at [phone] for Medicare purposes. For Medicare only, by signing this I certify the plan of care. Please let me know if there are questions or concerns regarding this plan of care. Physician Signature: Date:
== END 2024-08-10 19:00 | disposition home or self-care (01) ==
LOC: PT 09:00
PROVIDERS: PCP Family Medicine; Referring Provider Orthopaedic Surgery; Visit Provider Orthopaedic Surgery
DX: M25.372 Other instability, left ankle (principal); N95.8 Other specified menopausal and perimenopausal disorders
CPT/HCPCS: 97110; 97140; 97161

== ENCOUNTER → 2024-09-05 | Outpatient (CLI) | payer OTHER, SELFPAY ==
[2024-09-05 10:44] LABS: Absolute Lymphocyte Count 2.35 X10^3/uL (0.83-4.51); Absolute Neutrophil Count 3.5 X10^3/uL (2.0-7.7); Basophil# 0.04 X10^3/uL; Basophil% 0.6 % (0-1); Eosinophil# 0.14 X10^3/uL; Eosinophils% 2.2 % (0-5); Hematocrit 41.7 % (37-47); Hemoglobin 14.4 g/dL (12.0-15.0); Lymphocyte # 2.35 X10^3/ul (0.83-4.51); Lymphocyte % 36.2 % (19-41); Mean Corp Hgb Conc 34.5 g/dL (32-36); Mean Corpuscular Hgb 32.7 pg (27.0-32.0); Mean Corpuscular Volume 94.8 fL (81-99); Mean Platelet Vol. 12.6 fl (6.2-12.0); Monocyte% 7.7 % (0-10); NRBC Flagged by Analyzer 0 % (0-5); Neutrophil # 3.46 X10^3/uL (2.7-7.7); Neutrophil % 53.1 % (47-70); Platelet Count 201 K/mm3 (150-450); RBC Distribution Width CV 12.4 % (11.6-14.6); RBC Distribution Width SD 43.5 fl (35.1-43.9); White Blood Count 6.5 K/mm3 (4.4-11.0)
[2024-09-05 11:58] LABS: ALB/GLOB Ratio 1.4 RATIO (0.9-2.4); AST(SGOT) 26 U/L (<=31); Alanine Aminotransfer ALT/SGPT 31 U/L (<=34); Albumin, Serum 4.3 g/dL (3.5-5.0); Alkaline Phosphatase 81 U/L (35-104); Anion Gap 10 (5-15); BUN 11 mg/dL (4-19); BUN/Creat Ratio 14.6 RATIO (10-20); Calcium,Total 9.4 mg/dL (7.6-11.0); Chloride 103 mmol/L (98-108); Creatinine, Serum 0.73 mg/dL (0.70-1.20); EST Glomerular Filtration Rate 110 (>60); Globulin 3.1 g/dL (2.2-4.2); Glucose 101 mg/dL (70-99); Potassium 4.3 mmol/L (3.3-5.1); Protein, Total 7.4 g/dL (5.9-8.4); Sodium Level 139 mmol/L (133-145); Total Bilirubin 0.65 mg/dL (0.00-1.30); Vitamin D,25 Hydroxy 20.5 ng/mL (30-100)
== END | disposition home or self-care (01) ==
PROVIDERS: PCP Family Medicine
DX: E03.9 Hypothyroidism, unspecified (principal)
CPT/HCPCS: 36415; 80053; 82306; 84443; 85025

== ENCOUNTER → 2024-12-12 | Outpatient (CLI) | payer OTHER, SELFPAY ==
[2024-12-12 15:56] LABS: Hematocrit 40.5 % (37-47); Hemoglobin 13.6 g/dL (12.0-15.0); Immature Granulocytes Count 0.020 X10^3/uL (0.0-0.0); Mean Corp Hgb Conc 33.6 g/dL (32-36); Mean Corpuscular Volume 94.2 fL (81-99); Mean Platelet Vol. 13.6 fl (6.2-12.0); NRBC Flagged by Analyzer 0 % (0-5); Platelet Count 172 K/mm3 (150-450); RBC Distribution Width CV 13.2 % (11.6-14.6); RBC Distribution Width SD 45.6 fl (35.1-43.9); Red Blood Count 4.30 M/mm3 (4.2-5.4); White Blood Count 6.7 K/mm3 (4.4-11.0)
[2024-12-12 17:06] LABS: AST(SGOT) 18 U/L (<=31); Alanine Aminotransfer ALT/SGPT 13 U/L (<=34); Albumin, Serum 4.4 g/dL (3.5-5.0); Alkaline Phosphatase 80 U/L (35-104); Anion Gap 11 (5-15); BUN 9 mg/dL (4-19); BUN/Creat Ratio 13.3 RATIO (10-20); Calcium,Total 9.5 mg/dL (7.6-11.0); Carbon Dioxide 25.7 mmol/L (21.0-32.0); Chloride 102 mmol/L (98-108); Globulin 2.9 g/dL (2.2-4.2); Glucose 100 mg/dL (70-99); Potassium 3.8 mmol/L (3.3-5.1); Vitamin D,25 Hydroxy 25.8 ng/mL (30-100)
== END | disposition home or self-care (01) ==
LOC: MFPLAB 11:32
PROVIDERS: PCP Family Medicine; Referring Provider Family Medicine; Visit Provider Family Medicine
DX: E03.9 Hypothyroidism, unspecified (principal)
CPT/HCPCS: 36415; 80053; 82306; 84443; 85025